=== PATIENT | female | born 1975 ===

== ENCOUNTER 2020-09-12 08:40 | Outpatient (REF) | payer OTHER, SELFPAY | END 2020-09-12 08:41 | disposition home or self-care (01) | LOC: HO.LAB 08:40 | PROVIDERS: Visit Provider Internal Medicine | DX: Z20.828 Contact with and (suspected) exposure to other viral communicable diseases (principal) | CPT/HCPCS: C9803; U0003 ==

== ENCOUNTER 2024-05-30 08:29 | Emergency (ER) | payer OTHER, SELFPAY ==
--- NOTE | ~2024-05-30 | XR_ITS ---
EXAMINATION: XR HUMERUS, RIGHT CLINICAL INFORMATION: Possible foreign body COMPARISON: None available. TECHNIQUE: AP and lateral views of the right humerus. FINDINGS: A linear 1 cm long metallic foreign body is present in the lateral soft tissues of the distal upper arm. Appearances are that of a needle. The bones and soft tissues are otherwise unremarkable. No fracture. Imaged portions of the shoulder and elbow are unremarkable. XR/XR humerus RT IMPRESSION: 1 cm long metallic foreign body in the lateral soft tissues of the distal upper arm. Electronically signed by: Bola Mcmanus MD 05/30/2024 09:37 AM EDT
[2024-05-30 08:34] VITALS: BP 142/87; PULSE 69; RESP 20; TEMP 36.1; O2SAT 100; BMI 26.3
--- OUTSIDE RECORDS SUMMARY | 2024-05-30 08:55 | XMS_ITS | Continuity of Care Document ---
Author Organization [facility] Address [address] [place] [address]- Care Team Providers Care Broom Bundler Name Role Phone Dylan Lu MD Primary Care Physician Encounter [facility] [place](s): 06/04/20 - 07/04/20 [facility] [address] [place] [address]- [facility] Allergies, Adverse Reactions, Alerts Substance Reaction Severity Status NKA Active Immunizations Given and Recorded Vaccine Date Status Refusal Reason influenza virus vaccine, inactivated 06/28/20 Give n influenza virus vaccine, inactivated 1 07/15/16 Gi cally influenza virus vaccine, inactivated 12/25/15 Give n influenza virus vaccine, inactivated 06/20/13 Give n influenza virus vaccine, inactivated 2 09/19/11 Gi cally influenza virus vaccine, inactivated 3 06/19/10 Gi cally tetanus/diphtheria/pertussis, acel(Tdap) 12/25/15 Given Tetanus-Diphth Toxoids, Adult (oldterm) 4 08/31/09 Given 1Admin Note: outside office 2Admin Note: vis given 04/23/10 3Admin Note: VIS GIVEN 4Admin Note: vis given Medications melatonin 5 mg oral tablet 1 tablet = 5 mg, By Mouth, Daily at bedtime, PRN for insomnia, # 60 tablet, 1 Refills, Acute 07/13/20 8:14:00 EDT, 06/13/20 8:14:00 EDT, Tablet, [id number], 175, cm, 11/10/19 10:47:00 EST, Height, 80.7, kg, 08/24/18 9:07:00 EST, Dry Weight Start Date: 06/13/20 Stop Date: 07/13/20 Status: Ordered Problem List Condition Effective Dates Status Health Status Inform ant H/O subconjunctival hemorrhage(Confirmed) Active H/O keloid of skin afer surgery(Confirmed) Active History of tubal ligation(Confirmed) 1999 Active History of appendectomy(Confirmed) 06/2016 Active H/O bilateral breast reducti on surgery(Confirmed) Active Lobular carcinoma in situ (L CIS) , left breast, 2004(Confirmed) 2004 Active Migraine(Confirmed) 1987 Active Overweight(Confirmed) Active Social History Social History Type Response Smoking Status Never smoker entered on: 01/11/14 Sex
--- OUTSIDE RECORDS SUMMARY | 2024-05-30 08:55 | XMS_ITS | Continuity of Care Document ---
Author Organization [facility] Address [address] [place] [address]- Care Team Providers Care Oil Scout Name Role Phone Dylan Lu MD Primary Care Physician Encounter [facility] Date(s): 12/22/20 - 01/21/21 [facility]/[address] [address]- Attending Physician: Anali Brewer Admitting Physician: AdmtrAnali Referring Physician: Admtr, Anali Allergies, Adverse Reactions, Alerts Substance Reaction Severity Status NKA Active Immunizations Given and Recorded Vaccine Date Status Refusal Reason SARS-CoV-2 (COVID-19) Ad26 vaccine 12/22/20 Given influenza virus vaccine, inactivated 06/28/20 Give n [...] Note: VIS GIVEN 4Admin Note: vis given Problem List Condition Effective Dates Status Health [...]
--- OUTSIDE RECORDS SUMMARY | 2024-05-30 08:55 | XMS_ITS | Continuity of Care Document ---
Author Organization [facility] Address [address] [place] [address]- Care Team Providers Care Tire Service Supervisor Name Role Phone Flako Benavides MD Primary Care Physician Encounter [facility] [place] Date(s): 06/09/23 - 07/09/23 [facility] [address] [place] [address] Allergies, Adverse Reactions, Alerts Substance Reaction Severity Status Percocet GI upset, made me feel sick Active Immunizations Given and Recorded Vaccine Date Status Refusal Reason SARS-CoV-2 mRNA (pdogmpw-xrro-jobdu) vax 10/21/21 Given influenza virus vaccine, inactivated 08/23/21 Give n influenza virus vaccine, inactivated 06/28/20 Give n influenza virus vaccine, inactivated 1 07/15/16 Gi cally influenza virus vaccine, inactivated 05/15/16 Deacon rded influenza virus vaccine, inactivated 12/25/15 Give n influenza virus vaccine, inactivated 06/20/13 Give n influenza virus vaccine, inactivated 2 09/19/11 Gi cally influenza virus vaccine, inactivated 3 06/19/10 Gi cally SARS-CoV-2 (COVID-19) Ad26 vaccine 12/22/20 Given tetanus/diphtheria/pertussis, acel(Tdap) 05/15/16 Recorded tetanus/diphtheria/pertussis, acel(Tdap) 12/25/15 Given Tetanus-Diphth Toxoids, Adult (oldterm) 4 08/31/09 Given 1Admin Note: outside office 2Admin Note: vis given 04/23/10 3Admin Note: VIS GIVEN 4Admin Note: vis given Medications diclofenac 1% topical gel See Instructions, APPLY TOPICALLY 4 TIMES DAILY NEEDED FOR PAIN NOT TO EXCEED 32 GRAMS DAILY., #100 Gm, 12 Refills, Maintenance, 04/22/23 11:02:00 EDT, [id number], 25, APPLY TOPICALLY 4 TIMES DAILY NEEDED FOR PAIN NOT TO EXCEED 32 GRAMS DA... Start Date: 04/22/23 Status: Ordered meloxicam 15 mg oral tablet 1 tablet, By Mouth, Daily, INSTR:TAKE WITH FOOD., # 30 tablet, 0 Refills, Maintenance, 02/16/23 11:52:00 EDT, [id number], 175.3, cm, 01/07/23 11:19:00 EDT, Height, 82.6, kg, 11/14/21 10:17:00 EST, Dry Weight Start Date: 02/16/23 Status: Ordered please d/c fluoxetine, trazodone, hydroxyzine please d/c fluoxetine, trazodone, hydroxyzine, See Instructions, # 1 each, Refills 0, Tot. Refills 0, Maintenance, please d/c fluoxetine, trazodone, hydroxyzine, 03/09/23 9:33:00 EDT, please d/c fluoxetine, trazodone, hydroxyzine, Supply, 175.3, cm, 0... Start Date: 03/09/23 Status: Ordered psyllium 2.4 g/3.7 g oral powder for reconstitution = 2.4 Gm, By Mouth, 2 times a day, PRN as needed for constipation, dissolve in 8 oz of fluid, # 30 pack/packet, 1 Refills, Maintenance, 06/12/22 20:32:00 EDT, REC Powder, [facility]/pharmacy #1130, Partial fill upon patient request if the prescription is for... Start Date: 06/12/22 Status: Ordered tamoxifen 20 mg oral tablet 1 tablet = 20 mg, By Mouth, Daily, # 30 tablet, 5 Refills, Maintenance, 04/22/23 18:16:00 EDT, Tablet, [facility]/pharmacy #1130, Partial fill upon patient request if the prescription is for a schedule II opioid drug., 175.3, cm, 03/09/23 9:10:00 EDT, Height... Start Date: 04/22/23 Stop Date: 10/19/23 Status: Ordered Tylenol 8 Hour 650 mg oral tablet, extended release 2 tablet = 1,300 mg, By Mouth, Every 8 hours, 0 Refills, Maintenance, 11/01/21 11:10:00 EST, Partial fill upon patient request if the prescription is for a schedule II opioid drug. Start Date: 11/01/21 Status: Ordered Problem List Condition Confirmation Course Effective Dates Status H ealth Status Informant History of subconjunctival hemorrhage Confirmed Active History of keloid of skin afer surgery Confirmed Active Primary language spoken is Vincentian Confirmed Active Lobular carcinoma in situ (LCIS) , left breast, 2004 Confirmed 2004 Active Migraine Confirmed 1987 Active Overweight Confirmed Active History of ASCUS, HPV + Pap smear 12/23/16. Last Pap 11/25/17 negative with negative HPV Confirmed Active Social History Social History Type Response Smoking Status Never smoker entered on: 01/11/14 Sex Patient Care team information Care Team Personnel Name: Flako Benavides MD Position: [facility] Resident Member Role: PCP Address: Address: [address] [place] [address]- Name: Homer Simon RN Position: [facility] RN Member Role: Primary Care Nurse Care Team Related Persons Name: PHOEBE SORTO Address: home [address] [place] [address] Name: YAMILKA WELLER Address: [place] [address] Name: KITA ZAMBRANO Address: home [address] [place] [address]
--- OUTSIDE RECORDS SUMMARY | 2024-05-30 08:55 | XMS_ITS | Continuity of Care Document ---
Author Organization [facility] Address [address] [place] [address]- Care Team Providers Care Stage Driver Name Role Phone Dylan Lu MD Primary Care Physician [place] [facility] [place](s[place] 09/28/20 - 10/28/20 [facility] [address] [place] [address]- Attending Physician: Anali Brewer Admitting Physician: Anali Brewer Referring Physician: AdmtrAnali Allergies, Adverse Reactions, Alerts Substance Reaction Severity [...] VIS GIVEN 4Admin Note: vis given Medications traZODone 50 mg oral tablet 25 mg, 0.5, tablet, By Mouth, Daily at bedtime, # 15 tablet, Refills 2, Tot. Refills 2, Maintenance, 09/28/20 15:09:00 EST, Route to Pharmacy Electronically, [facility]/pharmacy #[id number], Partial fill upon patient request if the prescription is for a schedule I... Start Date: 09/28/20 Stop Date: 12/27/20 Status: Ordered Problem List Condition Effective Dates [...]
--- OUTSIDE RECORDS SUMMARY | 2024-05-30 08:55 | XMS_ITS | Continuity of Care Document ---
Author Organization [facility] Dary sushila Address [address] [place] [address] [address] [place] [address]- Care Team Providers Care Branch Office Administrator Name Role Phone Aly PALACIOS, Dylan Vasquez Primary Care Physician Encounter [facility] Date(s): 10/04/21 - 02/01/22 [facility] [address] [place] [address]- Attending Physician: William Kelly MD Allergies, Adverse Reactions, Alerts Substance Reaction Severity Status Percocet GI upset, made me feel sick Active Immunizations Given and Recorded Vaccine Date Status Refusal Reason SARS-CoV-2 mRNA (otdxfzw-zawc-shyeq) vax 10/21/21 Given influenza virus vaccine, inactivated [...] VIS GIVEN 4Admin Note: vis given Medications acetaminophen 325 mg oral tablet 650 mg, 2, tablet, By Mouth, Every 8 hours, PRN, # 100 tablet, Refills 1, Tot. Refills 1, Maintenance, Pain , Moderate, 01/21/22 8:34:00 EDT, Route to Pharmacy Electronically, [facility]/pharmacy #[id number], Partial fill upon patient request if the prescription i... Start Date: 01/21/22 Status: Ordered diclofenac 1% topical gel See Instructions, APPLY TOPICALLY 4 TIMES A DAY CUANDO SEA NECESARIO FOR PAIN NOT TO EXCEED 32 GRAMS/DAY, # 100 Gm, 1 Refills, [facility], 30, APPLY TOPICALLY 4 TIMES A DAY CUANDO SEA NECESARIO FOR PAIN NOT TO EXCEED 32 GRAMS/DAY, 175, cm, ... Start Date: 01/22/22 Status: Ordered Diflucan 150 mg oral tablet 1 tablet = 150 mg, By Mouth, Once, # 1 tablet, 0 Refills, Soft Stop, 12/06/21 12:35:00 EDT, [facility], Partial fill upon patient request if the prescription is for a schedule II opioid drug., 175, cm, 11/26/21 9:31:00 EDT, Height, 82.6, kg, 0... Start Date: 12/06/21 Status: Ordered FLUoxetine 20 mg oral capsule 20 mg, 1, capsule, By Mouth, Daily, [place] INSTRUCTIONS Please take every morning every day and donot stop unless told by your doctor, # 30 capsule, Refills 5, Tot. Refills 5, Maintenance, 228:32:00 EDT, Route to Pharmacy Electronically, C... Start Date: 01/21/22 Status: Ordered gabapentin 100 mg oral capsule 100 mg, 1, capsule, By Mouth, 3 times a day, # 90 capsule, Refills 1, Tot. Refills 1, Maintenance, 11/01/21 11:52:00 EST, Route to Pharmacy Electronically, [facility]/pharmacy #1130, Partial fill upon patient request if the prescription is for a schedule II... Start Date: 11/01/21 Stop Date: 12/31/21 Status: Ordered NuLYTELY with Flavor Packs oral powder for reconstitution 240 mL, By Mouth, Every 10 minutes, split prep method, take 1st half of prep evening before procedure, 2nd half 6 hrs prior to procedure., # 1 each, 0 Refills, Maintenance, 06/11/22 17:00:00 EDBala Abarca [facility]/pharmacy #1130, test date 06/12/22 . CA... Start Date: 06/11/22 Status: Ordered Tylenol 8 Hour 650 mg oral tablet, extended release 2 tablet = 1,300 mg, By Mouth, Every 8 hours, 0 Refills, Maintenance, 11/01/21 11:10:00 EST, Partial fill upon patient request if the prescription is for a schedule II opioid drug. Start Date: 11/01/21 Status: Ordered Problem List Condition Effective Dates Status Health Status Inform ant History of subconjunctival hemorrhage(Confirmed) Active History of keloid of skin af er surgery(Confirmed) Active Primary language spoken is Japanese(Confirmed) Active Lobular carcinoma in situ (L CIS) , left breast, 2004(Confirmed) 2004 Active Migraine(Confirmed) 1987 Active Overweight(Confirmed) Active History of ASCUS, HPV + Pap smear 12/23/16. Last Pap 11/25/17 negative with negative HPV(Confirmed) Active Social History Social History Type Response Smoking Status Never smoker entered on: 01/11/14 Sex
--- OUTSIDE RECORDS SUMMARY | 2024-05-30 08:55 | XMS_ITS | Continuity of Care Document ---
Author Organization [facility] Address [address] [place] [address]- Care Team Providers Care Web Ui Software Engineer Name Role Phone Dylan Lu MD Primary Care Physician ( [phone] [place] [facility] [place] 11/05/20 - 12/05/20 [facility] [address] [place] [address]- Allergies, Adverse Reactions, Alerts Substance Reaction Severity [...] GIVEN 4Admin Note: vis given Medications melatonin 10 mg oral tablet 1 tablet = 10 mg, By Mouth, Daily at bedtime, PRN as needed for insomnia, # 200 tablet, 1 Refills, Acute 01/09/21 9:00:00 EDT, 11/11/20 15:33:00 EST, Tablet, [id number], Partial fill upon patient request if the prescription is for a schedule I... Start Date: 11/11/20 Stop Date: 01/09/21 Status: Ordered Problem List Condition Effective Dates [...]
--- OUTSIDE RECORDS SUMMARY | 2024-05-30 08:55 | XMS_ITS | Continuity of Care Document ---
Author Organization [facility] Address [address] [place] [address]- Care Team Providers Care Freight Car Loader Name Role Phone Aly PALACIOS, Dylan S Primary Care Physician Encounter [facility] Date(s): 11/26/21 - 12/26/21 [facility] [address] [place] [address]- Attending Physician: Anali Brewer Admitting Physician: AdmAnali tolentino Referring Physician: AdmtrAnali Allergies, Adverse Reactions, Alerts Substance Reaction Severity Status Percocet GI upset, made me feel sick Active Immunizations Given and Recorded Vaccine Date Status Refusal Reason SARS-CoV-2 mRNA (kesvrjx-zwhz-lfift) vax 10/21/21 Given influenza virus vaccine, inactivated [...] 32 GRAMS/DAY, # 100 Gm, 1 Refills, [id number], 30, APPLY TOPICALLY 4 TIMES A DAY CUANDO SEA NECESARIO FOR PAIN NOT TO EXCEED 32 GRAMS/DAY, 175, cm, ... Start Date: 11/25/21 Status: Ordered Diflucan 150 mg oral tablet 1 tablet = 150 mg, By Mouth, Once, # 1 tablet, 0 Refills, Soft Stop, 12/06/21 12:35:00 EDT, [facility]/pharmacy #1130, Partial fill upon patient request if the prescription is for a schedule II opioid drug., 175, cm, 11/26/21 9:31:00 EDT, Height, 82.6, kg, 0... Start Date: 12/06/21 Status: Ordered FLUoxetine 20 mg oral capsule 20 mg, 1, capsule, By Mouth, Daily, SCOTTISH INSTRUCTIONS Please take every morning every day and donot stop unless told by your doctor, # 30 capsule, Refills 3, Tot. Refills 3, Maintenance, 11/12/2216:07:00 EST, Route to Pharmacy Electronically,... Start Date: 11/12/21 Status: Ordered gabapentin 100 mg oral capsule 100 mg, 1, capsule, By Mouth, 3 times a day, # 90 capsule, Refills 1, Tot. Refills 1, Maintenance, 11/01/21 11:52:00 EST, Route to Pharmacy Electronically, [facility]/pharmacy #1130, Partial fill upon patient request if the prescription is for a schedule II... Start Date: 11/01/21 Stop Date: 12/31/21 Status: Ordered NuLYTELY with Flavor Packs oral powder for reconstitution 240 mL, By Mouth, Every 10 minutes, split prep method, take 1st half of prep evening before procedure, 2nd half 6 hrs prior to procedure., # 1 each, 0 Refills, Maintenance, 06/11/22 17:00:00 EDT, Bala, [facility]/pharmacy #1130, test date 06/12/22 . CA... Start [...] er surgery(Confirmed) Active Primary language spoken is Latvian(Confirmed) Active Lobular carcinoma in situ (L CIS) , left breast, 2004(Confirmed) 2004 Active Migraine(Confirmed) 1987 Active Overweight(Confirmed) Active History of ASCUS, HPV + Pap smear 12/23/16. Last Pap 11/25/17 negative with negative HPV(Confirmed) Active Social History Social History Type Response Smoking Status Never smoker entered on: 01/11/14 Sex
--- OUTSIDE RECORDS SUMMARY | 2024-05-30 08:56 | XMS_ITS | Continuity of Care Document ---
Author Organization [facility] Address [address] [place] [address]- Care Team Providers Care Refund Clerk Name Role Phone Aly PALACIOS, Dylan S Primary Care Physician Encounter [facility] Date(s): 04/30/22 - 05/30/22 [facility] [address] [place], [place] [address] Attending Physician: Anali Brewer Admitting Physician: AdmAnlai tolentino Referring Physician: AdmtrAnali Allergies, Adverse Reactions, Alerts Substance Reaction Severity Status Percocet GI upset, made me feel sick Active Immunizations Given and Recorded Vaccine Date Status Refusal Reason SARS-CoV-2 mRNA (pgpchcc-dion-pnwsm) vax 10/21/21 Given influenza virus vaccine, inactivated [...] 01/21/22 8:34:00 EDT, Route to Pharmacy Electronically, [facility]/pharmacy #1130, Partial fill upon patient request if the prescription i... Start Date: 01/21/22 Status: Ordered diclofenac 1% topical gel See Instructions, APPLY TOPICALLY 4 TIMES DAILY NEEDED FOR PAIN NOT TO EXCEED 32 GRAMS DAILY., #100 Gm, 12 Refills, [facility], 25, APPLY TOPICALLY 4 TIMES DAILY NEEDED FOR PAIN NOT TO EXCEED 32 GRAMS DAILY., 175, cm, 01/21/22 7:55:00 EDT,... Start Date: 04/16/22 Status: Ordered Diflucan 150 mg oral tablet 1 tablet = 150 mg, By Mouth, Once, # 1 tablet, 0 Refills, Soft Stop, 12/06/21 12:35:00 EDT, [facility]/pharmacy #1130, Partial fill upon patient request if the prescription is for a schedule II opioid drug., 175, cm, 11/26/21 9:31:00 EDT, Height, 82.6, kg, 0... Start Date: 12/06/21 Status: Ordered FLUoxetine 20 mg oral capsule 20 mg, 1, capsule, By Mouth, Daily, ENGLISH INSTRUCTIONS Please take every morning every day and donot stop unless told by your doctor, # 30 capsule, Refills 5, Tot. Refills 5, Maintenance, :32:00 EDT, Route to Pharmacy Electronically, C... Start Date: 01/21/22 Status: Ordered gabapentin 100 mg oral capsule 100 mg, 1, capsule, By Mouth, 3 times a day, # 90 capsule, Refills 1, Tot. Refills 1, Maintenance, 11/01/21 11:52:00 EST, Route to Pharmacy Electronically, [facility]/pharmacy #1130, Partial fill upon patient request if the prescription is for a schedule II... Start Date: 11/01/21 Stop Date: 12/31/21 Status: Ordered nabumetone 500 mg oral tablet 1 tablet = 500 mg, By Mouth, 2 times a day, # 20 tablet, 0 Refills, Maintenance, 04/30/22 10:45:00 EDT, Tablet, [facility]/pharmacy #1130, Partial fill upon patient request if the prescription is for a schedule II opioid drug., 175, cm, 04/30/22 9:29:00 EDT,... Start Date: 04/30/22 Stop Date: 05/10/22 Status: Ordered NuLYTELY with Flavor Packs oral powder for reconstitution 240 mL, By Mouth, Every 10 minutes, split prep method, take 1st half of prep evening before procedure, 2nd half 6 hrs prior to procedure., # 1 each, 0 Refills, Maintenance, 06/11/22 17:00:00 EDT, RECPowder, [facility]/pharmacy #1130, test date 06/12/22 . CA... Start Date: 06/11/22 Status: Ordered tiZANidine 2 mg oral capsule 1 capsule = 2 mg, By Mouth, 3 times a day, PRN as needed for muscle spasm, # 40 capsule, 1 Refills,Maintenance, 04/30/22 10:45:00 EDT, Capsule, [facility]/pharmacy #1130, Partial fill upon patient request if the prescription is for a schedule II opioid drug... Start Date: 04/30/22 Stop Date: 05/28/22 Status: Ordered Tylenol 8 Hour 650 mg [...] er surgery(Confirmed) Active Primary language spoken is Lithuanian(Confirmed) Active Lobular carcinoma in situ (L CIS) , left breast, 2004(Confirmed) 2004 Active Migraine(Confirmed) 1987 Active Overweight(Confirmed) Active History of ASCUS, HPV + Pap smear 12/23/16. Last Pap 11/25/17 negative with negative HPV(Confirmed) Active Social History Social History Type Response Smoking Status Never smoker entered on: 01/11/14 Sex Care Team Personnel Name: Dylan Lu MD Address: [address] [place] [address]
--- OUTSIDE RECORDS SUMMARY | 2024-05-30 08:56 | XMS_ITS | Continuity of Care Document ---
Author Organization [facility] Address [address] [place] [address]- Care Team Providers Care Bread Wrapping Machine Feeder Name Role Phone Flako Benavides MD Primary Care Physician Encounter [facility] Date(s): 03/23/24 - 04/22/24 [facility] [address] [place], [place] [phone] Allergies, Adverse Reactions, Alerts Substance Reaction Severity Status Percocet GI upset, made me feel sick Active Immunizations Given and Recorded Vaccine Date Status Refusal Reason SARS-CoV-2 mRNA (gsjbsua-hdtl-ocxmy) vax 10/21/21 Given influenza virus vaccine, inactivated [...] GIVEN 4Admin Note: vis given Medications acetaminophen 500 mg oral tablet 2 tablet = 1,000 mg, By Mouth, Every 8 hours, for pain, # 100 tablet, 5 Refills, Maintenance, 12/17/23 8:47:00 EDT, [facility]/pharmacy #1130, Partial fill upon patient request if the prescription is for a schedule II opioid drug., 175.3, cm, 12/17/23 8:18:0... Start Date: 12/17/23 Status: Ordered diclofenac 1% topical gel See Instructions, APPLY TOPICALLY 4 TIMES DAILY NEEDED FOR PAIN NOT TO EXCEED 32 GRAMS DAILY., #100 Gm, 1 Refills, Maintenance, 03/23/24 11:28:00 EDT, [facility]/pharmacy #1130, 25, APPLY TOPICALLY 4 TIMES DAILY NEEDED FOR PAIN NOT TO EXCEED 32 GRAMS... Start Date: 03/23/24 Status: Ordered eszopiclone 1 mg oral tablet 1 tablet = 1 mg, By Mouth, Daily, TAKE IMMEDIATELY BEFORE BED. Sudanese label please, # 30 tablet, 0Refills, Maintenance, 11/05/23 15:48:00 EST, [facility]/pharmacy #1130, D/C DOXEPIN PLEASE, 175.3, cm, 10/01/23 17:00:00 EST, Height, 82.6, kg, 11/14/21 10:17... Start Date: 11/05/23 Status: Ordered FLUoxetine 40 mg oral capsule 1 capsule = 40 mg, By Mouth, Daily, Sudanese label please, # 30 capsule, 5 Refills, Maintenance, 11/03/23 10:11:00 EST, [facility]/pharmacy #1130, dose increase to 40mg 11/03/23, 175.3, cm, 10/01/23 17:00:00 EST, Height, 82.6, kg, 11/14/21 10:17:00 EST, Dry We... Start Date: 11/03/23 Status: Ordered meloxicam 15 mg oral tablet 1 tablet, By Mouth, Daily, INSTR:TAKE WITH FOOD. Sudanese label please., # 30 tablet, 1 Refills, Maintenance, 08/26/23 9:15:00 EST, [facility]/pharmacy #1130, 175.3, cm, 08/18/23 9:52:00 EST, Height, 82.6, kg, 11/14/21 10:17:00 EST, Dry Weight Start Date: 08/26/23 Status: Ordered please d/c fluoxetine, trazodone, hydroxyzine [...] Refills, Maintenance, 06/12/22 20:32:00 EDT, REC Powder, [facility]/pharmacy #1130, Partial fill upon patient request if the prescription is for... Start Date: 06/12/22 Status: Ordered tamoxifen 20 mg oral tablet See Instructions, KHADIJAH SANTIZO EMMANUEL, # 90 tablet, 3 Refills, Maintenance, 11/26/23 13:41:00 EDT, [facility], 175.3, cm, 11/26/23 13:25:00 EDT, Height Start Date: 11/26/23 Status: Ordered Tylenol 8 Hour 650 mg [...] surgery Confirmed Active Primary language spoken is Sudanese Confirmed Active Lobular carcinoma in situ (LCIS) [...] Team Personnel Name: Flako Benavides MD Position: S Resident Member Role: PCP Address: Address: [address] [place] [id number]- Name: Alfred RN, Homer Position: S SN RN Member Role: Primary Care Nurse Care Team Related Persons Name: PHOEBE SORTO Address: home [address] [place] [address] Name: YAMILKA WELLER Address: [place] [address] Name: KITA ZAMBRANO Address: home [address] [place] [address]
--- OUTSIDE RECORDS SUMMARY | 2024-05-30 08:56 | XMS_ITS | Continuity of Care Document ---
Author Organization [facility] Address [address] [place] [address]- Care Team Providers Care Therapist Occupational Name Role Phone Dylan Lu MD S Primary Care Physician [facility]counter [facility] Date(s): 08/23/21 - 09/25/21 [facility] [address] [place], [place] [address] Attending Physician: Yovani Gonzalez MD Admitting Physician: Yovani Gonzalez MD Allergies, Adverse Reactions, Alerts Substance Reaction Severity Status Percocet GI upset, made me feel sick Active Immunizations Given and Recorded Vaccine Date Status Refusal Reason influenza virus vaccine, inactivated 08/23/21 Give n [...] vis given Medications diclofenac 1% topical gel 1 application, Topically, 4 times a day, prn pain not to exceed 32 grams/day, # 100 Gm, 0 Refills, Maintenance, 08/23/21 13:51:00 EST, Gel, [id number], Partial fill upon patient request if the prescription is for a schedule II opioid drug., 1... Start Date: 08/23/21 Status: Ordered Problem List Condition Effective Dates Status Health Status Inform ant History of subconjunctival hemorrhage(Confirmed) Active History of keloid of skin af er surgery(Confirmed) Active Primary language spoken is Malagasy(Confirmed) Active Lobular carcinoma in situ (L CIS) , left breast, 2004(Confirmed) 2004 Active Migraine(Confirmed) 1987 Active Overweight(Confirmed) Active History of ASCUS, HPV + Pap smear 12/23/16. Last Pap 11/25/17 negative with negative HPV(Confirmed) Active Social History Social History Type Response Smoking Status Never smoker entered on: 01/11/14 Sex
--- OUTSIDE RECORDS SUMMARY | 2024-05-30 08:56 | XMS_ITS | Continuity of Care Document ---
Author Organization [facility] Address [address] [place] [address]- Care Team Providers Care Owner Oral Surgeon Name Role Phone Dylan Lu MD S Primary Care Physician En[place] [facility] [place] Date(s): 08/29/22 - 09/28/22 [facility] [address] [place] [address]- Attending Physician: Not on Staff, Attending MD Allergies, Adverse Reactions, Alerts Substance Reaction Severity Status Percocet GI upset, made me feel sick Active Immunizations Given and Recorded Vaccine Date Status Refusal Reason SARS-CoV-2 mRNA ([id number]) vax 10/21/21 Given influenza virus vaccine, inactivated [...] 01/21/22 8:34:00 EDT, Route to Pharmacy Electronically, [facility]/pharmacy #[id number], Partial fill upon patient request if the prescription i... Start Date: 01/21/22 Status: Ordered diclofenac 1% topical gel See Instructions, APPLY TOPICALLY 4 TIMES DAILY NEEDED FOR PAIN NOT TO EXCEED 32 GRAMS DAILY., #100 Gm, 12 Refills, [id number], 25, APPLY TOPICALLY 4 TIMES DAILY NEEDED FOR PAIN NOT TO EXCEED 32 GRAMS DAILY., 175, cm, 01/21/22 7:55:00 EDT,... Start Date: 04/16/22 Status: Ordered Diflucan 150 mg oral tablet 1 tablet = 150 mg, By Mouth, Once, # 1 tablet, 0 Refills, Soft Stop, 12/06/21 12:35:00 EDT, [facility]/pharmacy #[id number], Partial fill upon patient request if the prescription is for a schedule II opioid drug., 175, cm, 11/26/21 9:31:00 EDT, Height, 82.6, kg, 0... Start Date: 12/06/21 Status: Ordered FLUoxetine 20 mg oral capsule See Instructions, TAKE 1 CAPSULE BY MOUTH DAILY MORNING DO NOT STOP UNLESS TOLD BY YOUR DOCTOR, # 30 capsule, Refills 5, Maintenance, 07/23/22 16:40:00 EST, Instructions Replace Required Details, Route to Pharmacy Electronically, [id number], 175.... Start Date: 07/23/22 Status: Ordered FLUoxetine 20 mg oral tablet 1.5 tablet = 30 mg, By Mouth, Daily, Lao label please., # 45 tablet, 5 Refills, Maintenance, 09/24/22 8:25:00 EST, [id number], Dose increase to 30mg qd 09/24/22, 175.3, cm, 08/06/22 10:40:00 EST, Height, 82.6, kg, 11/14/21 10:17:00 EST, Dry... Start Date: 09/24/22 Status: Ordered gabapentin 100 mg oral capsule 100 mg, 1, capsule, By Mouth, 3 times a day, # 90 capsule, Refills 1, Tot. Refills 1, Maintenance, 11/01/21 11:52:00 EST, Route to Pharmacy Electronically, [facility]/pharmacy #[id number], Partial fill upon patient request if the prescription is for a schedule II... Start Date: 11/01/21 Stop Date: 12/31/21 Status: Ordered hydrOXYzine hydrochloride 25 mg oral tablet 1 tablet = 25 mg, By Mouth, Daily at bedtime, Lao label please., # 30 tablet, 3 Refills, Maintenance, 09/24/22 8:26:00 EST, [id number], Partial fill upon patient request if the prescription is for a schedule II opioid drug., 175.3, cm, ... Start Date: 09/24/22 Status: Ordered psyllium 2.4 g/3.7 g oral powder for reconstitution = 2.4 Gm, By Mouth, 2 times a day, PRN as needed for constipation, dissolve in 8 oz of fluid, # 30 pack/packet, 1 Refills, Maintenance, 06/12/22 20:32:00 EDT, REC Powder, [facility]/pharmacy #[id number], Partial fill upon patient request if the prescription is for... Start Date: 06/12/22 Status: Ordered tiZANidine 2 mg oral capsule 1 capsule = 2 mg, By Mouth, 3 times a day, PRN as needed for muscle spasm, # 40 capsule, 1 Refills,Maintenance, 04/30/22 10:45:00 EDT, Capsule, [facility], Partial fill upon patient request if the prescription is for a schedule II opioid drug... Start Date: 04/30/22 Stop Date: 05/28/22 Status: Ordered tiZANidine 2 mg oral tablet 2 mg, 1, tablet, By Mouth, 3 times a day, # 15 tablet, Refills 0, Tot. Refills 0, Maintenance, 07/25/22 14:47:00 EST, Route to Pharmacy Electronically, [id number], Partial fill upon patient request if the prescription is for a schedule II opio... Start Date: 07/25/22 Stop Date: 07/30/22 Status: Ordered Tylenol 8 Hour 650 mg [...] surgery Confirmed Active Primary language spoken is Lao Confirmed Active Lobular carcinoma in situ (LCIS) , left breast, 2004 Confirmed 2004 Active Migraine Confirmed 1987 Active Overweight Confirmed Active History of ASCUS, HPV + Pap smear 12/23/16. Last Pap 11/25/17 negative with negative HPV Confirmed Active Social History Social History Type Response Smoking Status Never smoker entered on: 01/11/14 Sex Patient Care team information Care Team Personnel Name: Dylan Lu MD Position: [facility] Resident Member Role: PCP Address: Address: [address] [place] [address]- Name: Homer Simon RN Position: [facility] RN Member Role: Primary Care Nurse Care Team Related Persons Name: PHOEBE SORTO Address: home [address] [place] [address] Name: YAMILKA WELLER Address: [place] [address] Name: KITA ZAMBRANO Address: home [address] [place] [address]
--- OUTSIDE RECORDS SUMMARY | 2024-05-30 08:56 | XMS_ITS | Continuity of Care Document ---
Author Organization [facility] Dary sushila Address [address] [place] [address] [address] [place] [address]- Care Team Providers Care Medical Planner Name Role Phone Aly PALACIOS, Dylan S Primary Care Physician Encounter [facility] [place] Date(s): 10/03/21 - 10/10/21 [facility] [address] [place], [place] [address] Attending Physician: Robin PALACIOS, William Baez Allergies, Adverse Reactions, Alerts Substance Reaction Severity [...] to exceed 32 grams/day, # 100 Gm, 1 Refills, Maintenance, 10/03/21 9:32:00 EST, Gel, [id number], Partial fill upon patient request if theprescription is for a schedule II opioid drug., 17... Start Date: 10/03/21 Status: Ordered ibuprofen 600 mg oral tablet 600 mg, 1, tablet, By Mouth, Every 8 hours, for 10 days, # 30 tablet, Refills 1, Tot. Refills 1, Acute 10/23/21 9:32:00 EST, 10/03/21 9:32:00 EST, Route to Pharmacy Electronically, [facility]/pharmacy #[id number], Partial fill upon patient request if the prescript... Start Date: 10/03/21 Stop Date: 10/23/21 Status: Ordered Problem List Condition Effective Dates Status Health Status Inform ant History of subconjunctival hemorrhage(Confirmed) Active History of keloid of skin af er surgery(Confirmed) Active Primary language spoken is Iraqi(Confirmed) Active Lobular carcinoma in situ (L CIS) , left breast, 2004(Confirmed) 2004 Active Migraine(Confirmed) 1987 Active Overweight(Confirmed) Active History of ASCUS, HPV + Pap smear 12/23/16. Last Pap 11/25/17 negative with negative HPV(Confirmed) Active Vital Signs Most recent to oldest [Reference Range]: 1 Height 175 cm (10/03/21 9:00 AM) Temperature [96.8-100.4 DegF] 98.0 DegF (10/03/21 9:00 AM) Temperature Route Temporal (10/03/21 9:00 AM) Social History Social History Type Response Smoking Status Never smoker entered on: 01/11/14 Sex
--- OUTSIDE RECORDS SUMMARY | 2024-05-30 08:56 | XMS_ITS | Continuity of Care Document ---
Author Organization [facility] sush[facility] Address [address] [place] [address] [address] [place] [address]- Care Team Providers Care Grain Inspector Name Role Phone Elvis PALACIOS, Elena Primary Care Physician [phone] Encounter [facility] Date(s): 12/23/19 - 01/02/20 [facility] [address] [place] [address]- [facility] Attending Physician: [id number] Admitting Physician: Admtr, Ar8 Referring Physician: Admtr, Ar8 Allergies, Adverse Reactions, Alerts Substance Reaction Severity Status NKA Active Immunizations Given and Recorded Vaccine Date Status Refusal Reason influenza virus vaccine, inactivated 1 07/15/16 Gi [...] VIS GIVEN 4Admin Note: vis given Medications diclofenac-misoprostol 50 mg-200 mcg oral tablet 1 tablet, By Mouth, 2 times a day, # 28 tablet, 0 Refills, Maintenance, 07/26/19 10:29:07 EST, Tablet, 1 tablet By Mouth 2 times a day,x14 days Start Date: 07/26/19 Stop Date: 08/09/19 Status: Ordered Diflucan 150 mg oral tablet 1 tablet = 150 mg, By Mouth, Once, # 1 tablet, 0 Refills, Soft Stop, 03/23/19 15:34:59 EDT, Tablet Start Date: 03/23/19 Status: Ordered ibuprofen 800 mg oral tablet 800 mg, 1, tablet, By Mouth, 3 times a day, # 90 tablet, Refills 1, Tot. Refills 1, Maintenance, 10/21/18 19:02:27 EST, Route to Pharmacy Electronically, [id number], [facility]/pharmacy #[id number] Start Date: 10/21/18 Status: Ordered Zantac 75 oral tablet 1 tablet = 75 mg, By Mouth, Daily, not to exceed 2 tablets/day, # 14 tablet, 0 Refills, Maintenance, 02/24/19 15:17:56 EDT, Tablet Start Date: 02/24/19 Stop Date: 03/10/19 Status: Ordered Problem List Condition Effective Dates [...]
--- OUTSIDE RECORDS SUMMARY | 2024-05-30 08:56 | XMS_ITS | Continuity of Care Document ---
Author Organization [facility] Address [address] [place] [address]- Care Team Providers Care Truck Cleaner Name Role Phone Dylan Lu MD Primary Care Physician Encounter [facility] [place] Date(s): 11/06/20 - 12/06/20 [facility] [address] [place] [address]- Allergies, Adverse Reactions, Alerts Substance Reaction Severity [...] 9:00:00 EDT, 11/11/20 15:33:00 EST, Tablet, [id number], Partial fill upon patient request if the [...]
--- OUTSIDE RECORDS SUMMARY | 2024-05-30 08:56 | XMS_ITS | Continuity of Care Document ---
Author Organization [facility] Dary sushila Address [address] [place] [address] [address] [place] [address]- Care Team Providers Care Ocular Pathologist Name Role Phone Aly PALACIOS, Dylan S Primary Care Physician ( [phone] Encounter [facility] Date(s): 09/10/21 - 11/09/21 [facility] [address] [place], [place] [address] Attending Physician: Robin PALACIOS, William Baez Allergies, Adverse Reactions, Alerts Substance Reaction Severity Status Percocet GI upset, made me feel sick Active Immunizations Given and Recorded Vaccine Date Status Refusal Reason SARS-CoV-2 mRNA ([id number]) vax 10/21/21 Given influenza virus vaccine, inactivated [...] drug., 17... Start Date: 10/03/21 Status: Ordered FLUoxetine 20 mg oral capsule 20 mg, 1, capsule, By Mouth, Daily, [employer] Please take every morning every day and donot stop unless told by your doctor, # 30 capsule, Refills 1, Tot. Refills 1, Maintenance, 229:25:00 EST, Route to Pharmacy Electronically, C... Start Date: 10/21/21 Status: Ordered gabapentin 100 mg oral capsule 100 mg, 1, capsule, By Mouth, 3 times a day, # 90 capsule, Refills 1, Tot. Refills 1, Maintenance, 11/01/21 11:52:00 EST, Route to Pharmacy Electronically, [facility]/pharmacy #[id number], Partial fill upon patient request if the prescription is for a schedule II... Start Date: 11/01/21 Stop Date: 12/31/21 Status: Ordered Tylenol 8 Hour 650 mg [...] er surgery(Confirmed) Active Primary language spoken is Italian(Confirmed) Active Lobular carcinoma in situ (L CIS) , left breast, 2004(Confirmed) 2004 Active Migraine(Confirmed) 1987 Active Overweight(Confirmed) Active History of ASCUS, HPV + Pap smear 12/23/16. Last Pap 11/25/17 negative with negative HPV(Confirmed) Active Social History Social History Type Response Smoking Status Never smoker entered on: 01/11/14 Sex
--- OUTSIDE RECORDS SUMMARY | 2024-05-30 08:56 | XMS_ITS | Continuity of Care Document ---
Author Organization [facility] Dary sushila Address [address] [facility] [address] [place] [address]- Care Team Providers Care Mechanical Cad Drafter Name Role Phone Dylan Lu MD Primary Care Physician Encounter [facility] Date(s): 07/18/21 - 07/25/21 [facility] [address] [place] [address] Drive [address] [place], [place] [address] Attending Physician: William Kelly MD Referring Physician: Dylan Lu MD Allergies, Adverse Reactions, Alerts Substance Reaction Severity Status Percocet Active Immunizations Given and Recorded Vaccine Date [...] grams/day, # 100 Gm, 0 Refills, Maintenance, 05/01/21 9:01:00 EDT, Gel, [id number], Partial fill upon patient request if theprescription is for a schedule II opioid drug., 17... Start Date: 05/01/21 Status: Ordered MELATONIN 5 MG TABLET MELATONIN 5 MG TABLET, See Instructions, # 30 tablet, 3 Refills, TOME ANNAMARIE TABLETA POR VIA ORAL A DIARIO AL ACOSTARSE CUANDO SEA NECESARIO FOR INSOMNIA, 175, cm, 06/05/21 10:36:00 EDT, Height Start Date: 06/14/21 Status: Ordered Problem List Condition Effective Dates Status Health Status Inform ant History of subconjunctival hemorrhage(Confirmed) Active History of keloid of skin af er surgery(Confirmed) Active Primary language spoken is Hungarian(Confirmed) Active Lobular carcinoma in situ (L CIS) , left breast, 2004(Confirmed) 2004 Active Migraine(Confirmed) 1987 Active Overweight(Confirmed) Active History of ASCUS, HPV + Pap smear 12/23/16. Last Pap 11/25/17 negative with negative HPV(Confirmed) Active Vital Signs Most recent to oldest [Reference Range]: 1 Height 175 cm (07/18/21 9:54 AM) Weight 80.45 kg (07/18/21 9:54 AM) Body Mass Index [18.5-24.99] 26.27 *H* (07/18/21 9:54 AM) Temperature [96.8-100.4 DegF] 97.0 DegF (07/18/21 9:54 AM) Temperature Route Temporal (07/18/21 9:54 AM) Weight Obtained Via Standing scale (07/18/21 9:54 AM) Social History Social History Type Response Smoking Status Never smoker entered on: 01/11/14 Sex
--- OUTSIDE RECORDS SUMMARY | 2024-05-30 08:56 | XMS_ITS | Continuity of Care Document ---
Author Organization [facility] Address [address] [place] [address]- Care Team Providers Care Conveyor System Operator Name Role Phone Dylan Lu MD S Primary Care Physician Encounter [facility] [place] Date(s): 05/09/21 - 06/08/21 [facility] [address] [place] [address]- Attending Physician: Anali Brewer Admitting Physician: AdmAnali tolentino Referring Physician: Admtr, Ar8 Allergies, Adverse Reactions, [...] drug., 17... Start Date: 05/01/21 Status: Ordered hydrOXYzine hydrochloride 25 mg oral tablet 1 tablet = 25 mg, By Mouth, Once, PRN Sleep, Take about 15 to 30 minutes before bed. Do not take the benadryl if you're taking the hydroxyzine., # 90 tablet, 1 Refills, Soft Stop, 05/09/21 8:28:00 EDT, Tablet, [facility]/pharmacy #1130, Partial fill upon pat... Start Date: 05/09/21 Status: Ordered omeprazole 20 mg oral delayed release tablet 1 tablet = 20 mg, By Mouth, Daily, # 30 tablet, 0 Refills, Maintenance, 05/24/21 10:01:00 EDT, CR Tablet, [facility]/pharmacy #1130, Label in Nicaraguan. D/c Famotidine., 175, cm, 05/09/21 8:11:00 EDT, Height Start Date: 05/24/21 Status: Ordered Problem List Condition Effective Dates [...]
--- OUTSIDE RECORDS SUMMARY | 2024-05-30 08:56 | XMS_ITS | Continuity of Care Document ---
Author Organization [facility] Dary sushila Address [address] [place] [address] [address] [place] [address]- Care Team Providers Care Occasional Babysitter Name Role Phone Dylan Lu MD S Primary Care Physician Encounter [facility] [place] Date(s): 08/15/21 - 08/22/21 [facility] [address] [place], [place] [address] Attending Physician: William Kelly MD Allergies, Adverse [...] er surgery(Confirmed) Active Primary language spoken is Dominican(Confirmed) Active Lobular carcinoma in situ (L CIS) , left breast, 2004(Confirmed) 2004 Active Migraine(Confirmed) 1987 Active Overweight(Confirmed) Active History of ASCUS, HPV + Pap smear 12/23/16. Last Pap 11/25/17 negative with negative HPV(Confirmed) Active Vital Signs Most recent to oldest [Reference Range]: 1 Height 175 cm (08/15/21 10:23 AM) Temperature [96.8-100.4 DegF] 97.4 DegF (08/15/21 10:23 AM) Temperature Route Temporal (08/15/21 10:23 AM) Social History Social History Type Response Smoking Status Never smoker entered on: 01/11/14 Sex
--- OUTSIDE RECORDS SUMMARY | 2024-05-30 08:56 | XMS_ITS | Continuity of Care Document ---
Author Organization [facility] Dary sushila Address [address] [place] [address] [address] [place] [address]- Care Team Providers Care Guide Plant Name Role Phone Aly PALACIOS, Dylan Vasquez Primary Care Physician ( [phone] Encounter [facility] Date(s): 03/19/21 - 04/18/[address] [place], [place] [address] Allergies, Adverse Reactions, Alerts Substance [...]
--- OUTSIDE RECORDS SUMMARY | 2024-05-30 08:56 | XMS_ITS | Continuity of Care Document ---
Author Organization [facility] Address [address] [place] [address]- Care Team Providers Care Room Worker Name Role Phone Flako Benavides MD Primary Care Physician [phone] Encounter [facility] Date(s): 09/06/23 - 10/06/23 [facility] [address] [place], [place] [address] Allergies, Adverse Reactions, Alerts Substance Reaction Severity Status Percocet GI upset, made me feel sick Active Immunizations Given and Recorded Vaccine Date Status Refusal Reason SARS-CoV-2 mRNA (yfymnnw-dnpn-nrdwu) vax 10/21/21 Given influenza virus vaccine, inactivated [...] Gm, 12 Refills, Maintenance, 04/22/23 11:02:00 EDT, [id number], 25, APPLY TOPICALLY 4 TIMES DAILY NEEDED FOR PAIN NOT TO EXCEED 32 GRAMS DA... Start Date: 04/22/23 Status: Ordered eszopiclone 1 mg oral tablet 1 tablet = 1 mg, By Mouth, Daily, TAKE IMMEDIATELY BEFORE BED., # 30 tablet, 2 Refills, Maintenance, 08/03/23 8:10:00 EST, [facility]/pharmacy #1130, D/C DOXEPIN PLEASE, 175.3, cm, 07/27/23 10:07:00 EST, Height, 82.6, kg, 11/14/21 10:17:00 EST, Dry Weight Start Date: 08/03/23 Status: Ordered FLUoxetine 20 mg oral capsule 20 mg, 1, capsule, By Mouth, Daily, # 28 capsule, Refills 0, Tot. Refills 0, Maintenance, 10/01/23 16:50:00 EST, [id number] Partial fill upon patient request if the prescription is for a schedule II opioid drTj. Start Date: 10/01/23 Stop Date: 10/29/23 Status: Ordered meloxicam 15 mg oral tablet 1 tablet, By Mouth, Daily, INSTR:TAKE WITH FOOD. Prydeinig label please., # 30 tablet, 1 Refills, Maintenance, 08/26/23 9:15:00 EST, [facility]/pharmacy #1130, 175.3, cm, 08/18/23 9:52:00 EST, [...] Refills, Maintenance, 06/12/22 20:32:00 EDT, REC Powder, [facility], Partial fill upon patient request if the prescription is for... Start Date: 06/12/22 Status: Ordered tamoxifen 20 mg oral tablet 1 tablet = 20 mg, By Mouth, Daily, # 90 tablet, 0 Refills, Maintenance, 10/19/23 18:16:00 EST, Tablet, [facility]/pharmacy #1130, Partial fill upon patient request if the prescription is for a schedule II opioid drug., 175.3, cm, 09/01/23 10:09:00 EST, Heigh... Start Date: 10/19/23 Status: Ordered tamoxifen 20 mg oral tablet 1 tablet = 20 mg, By Mouth, Daily, for 30 days, # 30 tablet, 5 Refills, Hard Stop 10/19/23 18:16:00EST, 04/22/23 18:16:00 EDT, Tablet, [facility]/pharmacy #1130, Partial fill upon patient request if the prescription is for a schedule II opioid drug., 175.3,... Start Date: 04/22/23 Stop Date: 10/19/23 Status: [...] surgery Confirmed Active Primary language spoken is Prydeinig Confirmed Active Lobular carcinoma in situ (LCIS) [...] S Resident Member Role: PCP Address: Address: [address] [place] [address]- Name: Alfred RN, Homer Position: S RN Member Role: Primary Care Nurse Care Team Related Persons Name: PHOEBE SORTO Address: [address] [place] [address] Name: YAMILKA WELLER Address: [place] [address] Name: KITA ZAMBRANO Address: [address] [place] [address]
--- OUTSIDE RECORDS SUMMARY | 2024-05-30 08:56 | XMS_ITS | Continuity of Care Document ---
Author Organization [facility] Address [address] [place] [address]- Care Team Providers Care Certified Histologic Technician Name Role Phone Flako Benavides MD Primary Care Physician [phone] Encounter [facility] Date(s): 03/23/23 - 05/01/[address] [address] Attending Physician: Karsten Amador Admitting Physician: Karsten Amador Referring Physician: Karsten Amador Allergies, Adverse Reactions, Alerts Substance Reaction Severity Status Percocet GI upset, made me feel sick Active Immunizations Given and Recorded Vaccine Date Status Refusal Reason SARS-CoV-2 mRNA (cglqlwe-nftd-yixdh) vax 10/21/21 Given influenza virus vaccine, inactivated [...] Refills, Maintenance, 04/22/23 11:02:00 EDT, [facility], 25, APPLY TOPICALLY 4 TIMES DAILY NEEDED FOR PAIN NOT TO EXCEED 32 GRAMS DA... Start Date: 04/22/23 Status: Ordered meloxicam 15 mg oral tablet 1 tablet, By Mouth, Daily, INSTR:TAKE WITH FOOD., # 30 tablet, 0 Refills, Maintenance, 02/16/23 11:52:00 EDT, [facility], 175.3, cm, 01/07/23 11:19:00 EDT, Height, 82.6, [...] 06/12/22 20:32:00 EDT, REC Powder, [facility]/pharmacy #1130, Partial fill upon patient request if the prescription is for... Start Date: 06/12/22 Status: Ordered tamoxifen 20 mg oral tablet 1 tablet = 20 mg, By Mouth, Daily, # 30 tablet, 5 Refills, Maintenance, 04/22/23 18:16:00 EDT, Tablet, [facility]/pharmacy #1130, Partial fill upon patient request if [...] surgery Confirmed Active Primary language spoken is Palauan Confirmed Active Lobular carcinoma in situ (LCIS) [...] Team Personnel Name: Flako Benavides MD Position: [facility] Resident Member Role: PCP Address: Address: [address] [place] [address]- Name: Homer Simon RN Position: [facility] SN RN Member Role: Primary Care Nurse Care Team Related Persons Name: PHOEBE SORTO Address: home [address] [place] [address] Name: YAMILKA WELLER Address: [place] [address] Name: KITA ZAMBRANO Address: [address] [place] [address]
--- OUTSIDE RECORDS SUMMARY | 2024-05-30 08:56 | XMS_ITS | Continuity of Care Document ---
Author Organization [facility] Adult [facility] Address [address] [place] [address]- Care Team Providers Care Customs Investigator Name Role Phone Dylan Lu MD S Primary Care Physician Encounter [facility] [place] Date(s): 11/13/22 - 12/17/22 [facility] [address] [place] [address]- Attending Physician: Karsten Amador Admitting Physician: Karsten Amador Allergies, Adverse Reactions, Alerts Substance Reaction Severity Status Percocet GI upset, made me feel sick Active Immunizations Given and Recorded Vaccine Date Status Refusal Reason SARS-CoV-2 mRNA ([id number]-lxswd) vax 10/21/21 Given influenza virus vaccine, inactivated [...] 01/21/22 8:34:00 EDT, Route to Pharmacy Electronically, [facility]/pharmacy #1130, Partial fill upon patient request if the prescription i... Start Date: 01/21/22 Status: Ordered diclofenac 1% topical gel See Instructions, APPLY TOPICALLY 4 TIMES DAILY NEEDED FOR PAIN NOT TO EXCEED 32 GRAMS DAILY., #100 Gm, 12 Refills, [facility], 25, APPLY TOPICALLY 4 TIMES DAILY NEEDED FOR PAIN NOT TO EXCEED 32 GRAMS DAILY., 175, cm, 01/21/22 7:55:00 EDT,... Start Date: 04/16/22 Status: Ordered Diflucan 150 mg oral tablet 1 tablet = 150 mg, By Mouth, Once, # 1 tablet, 0 Refills, Soft Stop, 12/06/21 12:35:00 EDT, [facility]/pharmacy #1130, Partial fill upon patient request if the prescription is for a schedule II opioid drug., 175, cm, 11/26/21 9:31:00 EDT, Height, 82.6, kg, 0... Start Date: 12/06/21 Status: Ordered FLUoxetine 20 mg oral tablet 1.5 tablet = 30 mg, By Mouth, Daily, Jordanian label please., # 45 tablet, 5 Refills, Maintenance, 09/24/22 8:25:00 EST, [facility]/pharmacy #1130, Dose increase to 30mg qd 09/24/22, 175.3, cm, 08/06/22 10:40:00 EST, Height, 82.6, kg, 11/14/21 10:17:00 EST, Dry... Start Date: 09/24/22 Status: Ordered gabapentin 100 mg oral capsule 100 mg, 1, capsule, By Mouth, 3 times a day, # 90 capsule, Refills 1, Tot. Refills 1, Maintenance, 11/01/21 11:52:00 EST, Route to Pharmacy Electronically, [facility]/pharmacy #1130, Partial fill upon patient request if the prescription is for a schedule II... Start Date: 11/01/21 Stop Date: 12/31/21 Status: Ordered hydrOXYzine hydrochloride 25 mg oral tablet 1 tablet = 25 mg, By Mouth, Daily at bedtime, Jordanian label please., # 30 tablet, 3 Refills, Maintenance, 09/24/22 8:26:00 EST, [facility]/pharmacy #1130, Partial fill upon patient request if the prescription is for a schedule II opioid drug., 175.3, cm, 11... Start Date: 09/24/22 Status: Ordered meloxicam 15 mg oral tablet 1 tablet = 15 mg, By Mouth, Daily, for pain take with food Jordanian label please., # 30 tablet, 1 Refills, Maintenance, 10/23/22 16:20:00 EST, [facility], Partial fill upon patient request if the prescription is for a schedule II opioid drug.... Start Date: 10/23/22 Status: Ordered psyllium 2.4 g/3.7 g oral powder for reconstitution = 2.4 Gm, By Mouth, 2 times a day, PRN as needed for constipation, dissolve in 8 oz of fluid, # 30 pack/packet, 1 Refills, Maintenance, 06/12/22 20:32:00 EDT, REC Powder, [facility]/pharmacy #1130, Partial fill upon patient request if [...] 07/25/22 14:47:00 EST, Route to Pharmacy Electronically, [facility]/pharmacy #1130, Partial fill upon patient request if the prescription is for a schedule II opio... Start Date: 07/25/22 Stop Date: 07/30/22 Status: Ordered traZODone 50 mg oral tablet 50 mg, 1, tablet, By Mouth, Daily at bedtime, for sleep Jordanian label please, # 30 tablet, Refills 5, Tot. Refills 5, Maintenance, 11/13/22 16:13:00 EST, Route to Pharmacy Electronically, [facility]/pharmacy #1130, Partial fill upon patient request if the p... Start Date: 11/13/22 Status: Ordered Tylenol 8 Hour 650 mg [...] surgery Confirmed Active Primary language spoken is Jordanian Confirmed Active Lobular carcinoma in situ (LCIS) , left breast, 2004 Confirmed 2004 Active Migraine Confirmed 1987 Active Overweight Confirmed Active History of ASCUS, HPV + Pap smear 12/23/16. Last Pap 11/25/17 negative with negative HPV Confirmed Active Social History Social History Type Response Smoking Status Never smoker entered on: 01/11/14 Sex Patient Care team information Care Team Personnel Name: Aly PALACIOS, Dylan Vasquez Position: [facility] Resident Member Role: PCP Address: Address: [address] [place] [address]- Name: Alfred SUMMERS, Homer Position: [facility] RN Member Role: Primary Care Nurse Care Team Related Persons Name: PHOEBE SORTO Address: home [address] [place] [address] Name: YAMILKA WELLER Address: [place] [address] Name: KITA ZAMBRANO Address: home [address] [place] [address]
--- OUTSIDE RECORDS SUMMARY | 2024-05-30 08:56 | XMS_ITS | Continuity of Care Document ---
Author Organization [facility] Adult [facility] Address [address] [place] [address]- Care Team Providers Care It Security Consultant Name Role Phone Flako Benavides MD Primary Care Physician [phone] Encounter [facility] Date(s): 12/17/23 - 01/16/24 [facility] [address] [place], [place] [phone] Attending Physician: Anali Brewer Admitting Physician: AdmtrAnali Referring Physician: AdmtrAnali Allergies, Adverse Reactions, Alerts Substance Reaction Severity Status Percocet GI upset, made me feel sick Active Immunizations Given and Recorded Vaccine Date Status Refusal Reason SARS-CoV-2 mRNA (mjtxnnn-awwc-yurfc) vax 10/21/21 Given influenza virus vaccine, inactivated [...] tablet, 5 Refills, Maintenance, 12/17/23 8:47:00 EDT, [facility]/pharmacy #1130, Partial fill upon patient request if the prescription is for a schedule II opioid drug., 175.3, cm, 12/17/23 8:18:0... Start Date: 12/17/23 Status: Ordered diclofenac 1% topical gel See Instructions, APPLY TOPICALLY 4 TIMES DAILY NEEDED FOR PAIN NOT TO EXCEED 32 GRAMS DAILY., #100 Gm, 12 Refills, Maintenance, 12/17/23 8:47:00 EDT, [facility]/pharmacy #1130, 25, APPLY TOPICALLY 4 TIMES DAILY NEEDED FOR PAIN NOT TO EXCEED 32 GRAMS... Start Date: 12/17/23 Status: Ordered eszopiclone 1 mg oral tablet 1 tablet = 1 mg, By Mouth, Daily, TAKE IMMEDIATELY BEFORE BED. Congolese label please, # 30 tablet, 0Refills, Maintenance, 11/05/23 15:48:00 EST, [facility], D/C DOXEPIN PLEASE, 175.3, cm, 10/01/23 17:00:00 EST, Height, 82.6, kg, 11/14/21 10:17... Start Date: 11/05/23 Status: Ordered FLUoxetine 40 mg oral capsule 1 capsule = 40 mg, By Mouth, Daily, Congolese label please, # 30 capsule, 5 Refills, Maintenance, 11/03/23 10:11:00 EST, [facility], dose increase to 40mg 11/03/23, 175.3, cm, 10/01/23 17:00:00 EST, Height, 82.6, kg, 11/14/21 10:17:00 EST, Dry We... Start Date: 11/03/23 Status: Ordered meloxicam 15 mg oral tablet 1 tablet, By Mouth, Daily, INSTR:TAKE WITH FOOD. Congolese label please., # 30 tablet, 1 Refills, Maintenance, 08/26/23 9:15:00 EST, [facility], 175.3, cm, 08/18/23 9:52:00 EST, Height, [...] 20 mg oral tablet See Instructions, KHADIJAH PATRICIA LOS EMMANUEL, # 90 tablet, 3 Refills, Maintenance, [...] surgery Confirmed Active Primary language spoken is Congolese Confirmed Active Lobular carcinoma in situ (LCIS) [...] Team Personnel Name: Flako Benavides MD Position: [facility] Resident Member Role: PCP Address: Address: [address] [place] [address]- Name: Homer Simon RN Position: [facility] SN RN Member Role: Primary Care Nurse Care Team Related Persons Name: PHOEBE SORTO Address: home [address] [place] [address] Name: YAMILKA WELLER Address: [place] [address] Name: KITA ZAMBRANO Address: home [address] [place] [address]
--- OUTSIDE RECORDS SUMMARY | 2024-05-30 08:56 | XMS_ITS | Continuity of Care Document ---
Author Organization [facility] ter Address [address] [place] [address]- Care Team Providers Care Form Worker Name Role Phone Dylan Lu MD Primary Care Physician Encounter [facility] [place] Date(s): 06/12/22 - 06/12/[address] [address] Discharge Disposition: A-D/C Home Attending Physician: Mikael Doss MD Admitting Physician: Mikael Doss MD Referring Physician: Mikael Doss MD Allergies, Adverse Reactions, Alerts Substance Reaction Severity Status Percocet GI upset, made me feel sick Active Immunizations Given and Recorded Vaccine Date Status Refusal Reason SARS-CoV-2 mRNA ([id number]) vax 10/21/21 Given influenza virus vaccine, inactivated [...] 01/21/22 8:34:00 EDT, Route to Pharmacy Electronically, [facility]/pharmacy #1130, Partial fill upon patient request if the prescription i... Start Date: 01/21/22 Status: Ordered diclofenac 1% topical gel See Instructions, APPLY TOPICALLY 4 TIMES DAILY NEEDED FOR PAIN NOT TO EXCEED 32 GRAMS DAILY., #100 Gm, 12 Refills, [facility], 25, APPLY TOPICALLY 4 TIMES DAILY NEEDED [...] 20 mg, 1, capsule, By Mouth, Daily, TURKMEN INSTRUCTIONS Please take every morning every day [...] 11/01/21 11:52:00 EST, Route to Pharmacy Electronically, [facility]/pharmacy #1130, Partial fill upon patient request if the prescription is for a schedule II... Start Date: 11/01/21 Stop Date: 12/31/21 Status: Ordered psyllium 2.4 g/3.7 g oral powder for reconstitution = 2.4 Gm, By Mouth, 2 times a day, PRN as needed for constipation, dissolve in 8 oz of fluid, # 30 pack/packet, 1 Refills, Maintenance, 06/12/22 20:32:00 EDT, REC Powder, [facility]/pharmacy #1130, Partial fill upon patient request if the prescription is for... Start Date: 06/12/22 Status: Ordered tiZANidine 2 mg oral capsule 1 capsule = 2 mg, By Mouth, 3 times a day, PRN as needed for muscle spasm, # 40 capsule, 1 Refills,Maintenance, 04/30/22 10:45:00 EDT, Capsule, [facility]/pharmacy #1130, Partial fill upon patient request if [...] surgery Confirmed Active Primary language spoken is Filipino Confirmed Active Lobular carcinoma in situ (LCIS) , left breast, 2004 Confirmed 2004 Active Migraine Confirmed 1987 Active Overweight Confirmed Active History of ASCUS, HPV + Pap smear 12/23/16. Last Pap 11/25/17 negative with negative HPV Confirmed Active Procedures Procedure Date Related Diagnosis Body Site Status Colonoscopy with polypectomy 06/12/22 Completed Vital Signs Most recent to oldest [Reference Range]: 1 2 3 Height 175.3 cm (06/12/22 10:09 AM) Weight 80.7 kg (06/12/22 10:09 AM) Oxygen Saturation [94-100 %] 100 % (06/12/22 11:31 AM) 100 % (06/12/22 11:29 AM) 99 % (06/12/22 11:20 AM) Pulse Rate [55-90 bpm] 74 bpm (06/12/22 10:09 AM) Body Mass Index [18.5-24.99 kg/m2] 26.26 kg/m2 *H* (06/12/22 10:09 AM) Blood Pressure [90-138/55-84 mm Hg] 119/77mm Hg (06/12/22 11:31 AM) 118/71mm Hg (06/12/22 11:29 AM) 110/77mm Hg (06/12/22 11:20 AM) Respiratory Rate [16-30 br/min] 16 br/min (06/12/22 11:31 AM) 17 br/min (06/12/22 11:29 AM) 15 br/min *L* (06/12/22 11:20 AM) Temperature [96.8-100.4 DegF] 98.7 DegF (06/12/22 10:09 AM) Mode of Delivery (Oxygen) Room air (06/12/22 11:31 AM) Room air (06/12/22 11:29 AM) Room air (06/12/22 11:20 AM) Temperature Route Temporal (06/12/22 10:09 AM) Social History Social History Type Response Smoking Status Never smoker entered on: 01/11/14 Sex Patient Care team information Personnel Name: Dylan Lu MD Address: Address: [address] [place] [address] [place], [place] [address]
--- OUTSIDE RECORDS SUMMARY | 2024-05-30 08:57 | XMS_ITS | Continuity of Care Document ---
Author Organization [facility] Adult [facility] Address [address] [place] [address]- Care Team Providers Care Canvas Baster Name Role Phone Dylan Lu MD S Primary Care Physician Encounter [facility] Date(s): 08/26/21 - 09/25/21 [facility] Adult [facility] [address] [place] [address]- Attending Physician: Anali Brewer Admitting Physician: AdmAnali [...] er surgery(Confirmed) Active Primary language spoken is Guinean(Confirmed) Active Lobular carcinoma in situ (L CIS) , left breast, 2004(Confirmed) 2004 Active Migraine(Confirmed) 1987 Active Overweight(Confirmed) Active History of ASCUS, HPV + Pap smear 12/23/16. Last Pap 11/25/17 negative with negative HPV(Confirmed) Active Social History Social History Type Response Smoking Status Never smoker entered on: 01/11/14 Sex
--- OUTSIDE RECORDS SUMMARY | 2024-05-30 08:57 | XMS_ITS | Continuity of Care Document ---
Author Organization [facility] Adult [facility] Address [address] [place] [address]- Care Team Providers Care Heel Packer Name Role Phone Flako Benavides MD Primary Care Physician [place] [facility] Date(s): 06/04/23 - 07/22/23 [facility] [address] [place] [id number] Attending Physician: Not on Staff, Attending MD Allergies, Adverse Reactions, Alerts Substance Reaction Severity Status Percocet GI upset, made me feel sick Active Immunizations Given and Recorded Vaccine Date Status Refusal Reason SARS-CoV-2 mRNA (hmxdbtf-ynoi-yyiva) vax 10/21/21 Given influenza virus vaccine, inactivated [...] Refills, Maintenance, 04/22/23 11:02:00 EDT, [id number], 25, APPLY TOPICALLY 4 TIMES DAILY NEEDED FOR PAIN NOT TO EXCEED 32 GRAMS DA... Start Date: 04/22/23 Status: Ordered meloxicam 15 mg oral tablet 1 tablet, By Mouth, Daily, INSTR:TAKE WITH FOOD., # 30 tablet, 0 Refills, Maintenance, 02/16/23 11:52:00 EDT, [id number], 175.3, cm, 01/07/23 11:19:00 EDT, Height, 82.6, [...] Refills, Maintenance, 06/12/22 20:32:00 EDT, REC Powder, [facility]/pharmacy #1130, Partial fill upon patient request if the prescription is for... Start Date: 06/12/22 Status: Ordered tamoxifen 20 mg oral tablet 1 tablet = 20 mg, By Mouth, Daily, # 30 tablet, 5 Refills, Maintenance, 04/22/23 18:16:00 EDT, Tablet, [facility]/pharmacy #1130, Partial fill upon patient request [...] surgery Confirmed Active Primary language spoken is Comoran Confirmed Active Lobular carcinoma in situ (LCIS) [...] Team Personnel Name: Flako Benavides MD Position: [facility] Resident Member Role: PCP Address: Address: [address] [place] [address]- Name: Homer Simon RN Position: [facility] SN RN Member Role: Primary Care Nurse Care Team Related Persons Name: PHOEBE SORTO Address: home [address] [place] [address] Name: YAMILKA WELLER Address: [place] [address] Name: KITA ZAMBRANO Address: home [address] [place] [address]
--- OUTSIDE RECORDS SUMMARY | 2024-05-30 08:57 | XMS_ITS | Continuity of Care Document ---
Author Organization [facility] Dary sushila Address [address] [place] [address] [address] [place] [address]- Care Team Providers Care Manager Marketing Communication Name Role Phone Dylan Lu MD Primary Care Physician Encounter [facility] Date(s): 04/10/22 - 05/10/22 [facility] [address] [place], [place] [address] Attending Physician: AdmAnali tolentino Admitting Physician: Admtr, Anali Referring Physician: Admtr, Ar8 Allergies, Adverse Reactions, Alerts Substance Reaction Severity Status Percocet GI upset, made me feel sick Active Immunizations Given and Recorded Vaccine Date Status Refusal Reason SARS-CoV-2 mRNA (gmtnqlu-qvoa-ownvd) vax 10/21/21 Given influenza virus vaccine, inactivated [...] 01/21/22 8:34:00 EDT, Route to Pharmacy Electronically, [facility]/pharmacy #1130, Partial fill upon patient request if the prescription i... Start Date: 01/21/22 Status: Ordered diclofenac 1% topical gel See Instructions, APPLY TOPICALLY 4 TIMES DAILY NEEDED FOR PAIN NOT TO EXCEED 32 GRAMS DAILY., #100 Gm, 12 Refills, [facility], 25, APPLY TOPICALLY 4 TIMES DAILY NEEDED FOR PAIN NOT TO EXCEED 32 GRAMS DAILY., 175, cm, 01/21/22 7:55:00 EDT,... Start Date: 04/16/22 Status: Ordered Diflucan 150 mg oral tablet 1 tablet = 150 mg, By Mouth, Once, # 1 tablet, 0 Refills, Soft Stop, 12/06/21 12:35:00 EDT, [facility]/pharmacy #1130, Partial fill upon patient request if the prescription is for a schedule II opioid drug., 175, cm, 11/26/21 9:31:00 EDT, Height, 82.6, kg, 0... Start Date: 12/06/21 Status: Ordered FLUoxetine 20 mg oral capsule 20 mg, 1, capsule, By Mouth, Daily, MOZAMBICAN INSTRUCTIONS Please take every morning every day [...] 11/01/21 11:52:00 EST, Route to Pharmacy Electronically, [facility]/pharmacy #1130, Partial fill upon patient request if the prescription is for a schedule II... Start Date: 11/01/21 Stop Date: 12/31/21 Status: Ordered nabumetone 500 mg oral tablet 1 tablet = 500 mg, By Mouth, 2 times a day, # 20 tablet, 0 Refills, Maintenance, 04/30/22 10:45:00 EDT, Tablet, [facility]/pharmacy #1130, Partial fill upon patient request [...] 0 Refills, Maintenance, 06/11/22 17:00:00 EDT, RECPowder, [facility]/pharmacy #1130, test date 06/12/22 . CA... Start Date: 06/11/22 Status: Ordered tiZANidine 2 mg oral capsule 1 capsule = 2 mg, By Mouth, 3 times a day, PRN as needed for muscle spasm, # 40 capsule, 1 Refills,Maintenance, 04/30/22 10:45:00 EDT, Capsule, [facility]/pharmacy #1130, Partial fill upon patient request [...] er surgery(Confirmed) Active Primary language spoken is Pakistani(Confirmed) Active Lobular carcinoma in situ (L CIS) , left breast, 2004(Confirmed) 2004 Active Migraine(Confirmed) 1987 Active Overweight(Confirmed) Active History of ASCUS, HPV + Pap smear 12/23/16. Last Pap 11/25/17 negative with negative HPV(Confirmed) Active Social History Social History Type Response Smoking Status Never smoker entered on: 01/11/14 Sex Care Team Personnel Name: Dylan Lu MD Address: [address] [place] [address]
--- OUTSIDE RECORDS SUMMARY | 2024-05-30 08:57 | XMS_ITS | Continuity of Care Document ---
Author Organization [facility] Madelin Harden Address [address], [address] [place] [address]- Care Team Providers Care Panel Fitter Name Role Phone Aly PALACIOS, Dylan Vasquez Primary Care Physician [place] [facility] [place] 07[place]16[place]21 - 07/23/21 [facility] [address], [address] [place], [place] [address] Attending Physician: Smith Valenzuela MD Referring Physician: Susan Vila DO Allergies, Adverse Reactions, Alerts Substance Reaction Severity [...] er surgery(Confirmed) Active Primary language spoken is Swedish(Confirmed) Active Lobular carcinoma in situ (L CIS) , left breast, 2004(Confirmed) 2004 Active Migraine(Confirmed) 1987 Active Overweight(Confirmed) Active History of ASCUS, HPV + Pap smear 12/23/16. Last Pap 11/25/17 negative with negative HPV(Confirmed) Active Procedures Procedure Date Related Diagnosis Body Site Status Arthroscopy 05/03/10 Completed Left knee diagnostic and ope rative arthroscopy with partial lateral meniscectomy 02/02/09 Completed Right knee diagnostic and op erative arthroscopy with partial lateral meniscectomy 04/08/06 Completed Left breast wire localizatio n and lumpectomy 12/03/04 Completed Hernia repair, left side 2001 Completed Panniculectomy Completed Tubal ligation Completed Vital Signs Most recent to oldest [Reference Range]: 1 Height 175 cm (07/16/21 8:15 AM) Weight 80.4 kg (07/16/21 8:15 AM) Body Mass Index [18.5-24.99] 26.25 *H* (07/16/21 8:15 AM) Blood Pressure [90-138/55-84 mm Hg] 132/ 87mm Hg (07/16/21 8:15 AM) Blood pressure sites Arm, right (07/16/21 8:15 AM) Weight Obtained Via Standing scale (07/16/21 8:15 AM) Social History Social History Type Response Smoking Status Never smoker entered on: 01/11/14 Sex
--- OUTSIDE RECORDS SUMMARY | 2024-05-30 08:57 | XMS_ITS | Continuity of Care Document ---
Author Organization [facility] Dary sushila Address [address] [place] [address] [address] [place] [address]- Care Team Providers Care Drier Feeder Name Role Phone Dylan Lu MD Primary Care Physician [facility]counter [facility] Date(s): 12/13/21 - 01/12/22 [facility] [address] [place], [place] [address] Attending Physician: Admrajan, Anali Admitting Physician: Admtr, Ar8 Referring Physician: Admtr, Ar8 Allergies, Adverse Reactions, Alerts Substance Reaction Severity Status Percocet GI upset, made me feel sick Active Immunizations Given and Recorded Vaccine Date Status Refusal Reason SARS-CoV-2 mRNA (lvzxfmz-buow-irzmg) vax 10/21/21 Given influenza virus vaccine, inactivated [...] 32 GRAMS/DAY, # 100 Gm, 1 Refills, [facility], 30, APPLY TOPICALLY 4 TIMES A DAY CUANDO SEA NECESARIO FOR PAIN NOT TO EXCEED 32 GRAMS/DAY, 175, cm, ... Start Date: 11/25/21 Status: Ordered Diflucan 150 mg oral tablet 1 tablet = 150 mg, By Mouth, Once, # 1 tablet, 0 Refills, Soft Stop, 12/06/21 12:35:00 EDT, [facility]/pharmacy #1130, Partial fill upon patient request if the prescription is for a schedule II opioid drug., 175, cm, 11/26/21 9:31:00 EDT, Height, 82.6, kg, 0... Start Date: 12/06/21 Status: Ordered FLUoxetine 20 mg oral capsule 20 mg, 1, capsule, By Mouth, Daily, PALAUAN INSTRUCTIONS Please take every morning every day [...] 11/01/21 11:52:00 EST, Route to Pharmacy Electronically, [facility]/pharmacy #1130, Partial fill upon patient request [...] 0 Refills, Maintenance, 06/11/22 17:00:00 EDT, [place], [facility]/pharmacy #1130, test date 06/12/22 . CA... [...] er surgery(Confirmed) Active Primary language spoken is Macedonian(Confirmed) Active Lobular carcinoma in situ (L CIS) , left breast, 2004(Confirmed) 2004 Active Migraine(Confirmed) 1987 Active Overweight(Confirmed) Active History of ASCUS, HPV + Pap smear 12/23/16. Last Pap 11/25/17 negative with negative HPV(Confirmed) Active Social History Social History Type Response Smoking Status Never smoker entered on: 01/11/14 Sex
--- OUTSIDE RECORDS SUMMARY | 2024-05-30 08:57 | XMS_ITS | Continuity of Care Document ---
Author Organization [facility] Address [address] [place] [address]- Care Team Providers Care Assistant Winemaker Name Role Phone Dylan Lu MD Primary Care Physician Encounter [facility] Date(s): 01/11/21 - 02/10/21 [facility] [address] [place] [address]- Allergies, Adverse Reactions, Alerts Substance Reaction Severity [...]
--- OUTSIDE RECORDS SUMMARY | 2024-05-30 08:57 | XMS_ITS | Continuity of Care Document ---
Author Organization [facility] Address [address] [place] [address]- Care Team Providers Care Foil Cutter Name Role Phone Dylan Lu MD S Primary Care Physician Encounter [facility] Date(s): 05/22/21 - 06/21/21 [facility] [address] [place], [place] [address] Allergies, Adverse Reactions, Alerts Substance Reaction Severity [...] Refills, Soft Stop, 05/09/21 8:28:00 EDT, Tablet, [facility]/pharmacy #1130, Partial fill upon pat... Start Date: 05/09/21 Status: Ordered MELATONIN 5 MG TABLET MELATONIN 5 MG TABLET, See Instructions, # 30 tablet, 3 Refills, TOME ANNAMARIE TABLETA POR VIA ORAL A DIARIO AL ACOSTARSE CUANDO SEA NECESARIO FOR INSOMNIA, 175, cm, 06/05/21 10:36:00 EDT, Height Start Date: 06/14/21 Status: Ordered omeprazole 20 mg oral enteric coated capsule See Instructions, TOME ANNAMARIE CAPSULA TODOS LOS EMMANUEL, # 30 capsule, 2 Refills, Maintenance, 06/17/21 9:19:00 EDT, [facility], 175, cm, 06/05/21 10:36:00 EDT, Height Start Date: 06/17/21 Status: Ordered Problem List Condition Effective Dates [...]
--- OUTSIDE RECORDS SUMMARY | 2024-05-30 08:57 | XMS_ITS | Continuity of Care Document ---
Author Organization [facility] Address [address] [place] [address]- Care Team Providers Care Visor Installer Name Role Phone Dylan Lu MD Primary Care Physician ( [phone] [facility]counter [facility] Date[facility]s): 04/29/21 - 05/29/21 [facility] [address] [place] [address]- Allergies, Adverse Reactions, Alerts Substance Reaction Severity [...] Refills, Soft Stop, 05/09/21 8:28:00 EDT, Tablet, [facility]/pharmacy #[id number], Partial fill upon pat... Start Date: 05/09/21 Status: Ordered omeprazole 20 mg oral delayed release tablet 1 tablet = 20 mg, By Mouth, Daily, # 30 tablet, 0 Refills, Maintenance, 05/24/21 10:01:00 EDT, CR Tablet, [facility]/pharmacy #1130, Label in Arabic. D/c Famotidine., 175, cm, 05/09/21 8:11:00 EDT, [...]
--- OUTSIDE RECORDS SUMMARY | 2024-05-30 08:57 | XMS_ITS | Continuity of Care Document ---
Author Organization [facility] [employer] Address [address], [address] [place] [address]- Care Team Providers Care Mobile Home Lot Utility Worker Name Role Phone Dylan Lu MD Primary Care Physician Encounter [facility] Date(s): 07/16/21 - 08/15/21 [facility] [address], [address] [place], [place] [address] Attending Physician: Anali Brewer Admitting Physician: AdmtrAnali Referring Physician: Admtr, Ar8 Allergies, Adverse Reactions, [...] VIS GIVEN 4Admin Note: vis given Medications cephalexin monohydrate 500 mg oral capsule 1 capsule = 500 mg, By Mouth, 3 times a day, for 5 days, # 15 capsule, 0 Refills, Acute 08/20/21 10:48:00 EST, 08/15/21 10:48:00 EST, [facility]/pharmacy #1130, Partial fill upon patient request if the prescription is for a schedule II opioid drug., 175, cm,... Start Date: 08/15/21 Stop Date: 08/20/21 Status: Ordered diclofenac 1% topical gel 1 application, Topically, [...] er surgery(Confirmed) Active Primary language spoken is Ugandan(Confirmed) Active Lobular carcinoma in situ (L CIS) , left breast, 2004(Confirmed) 2004 Active Migraine(Confirmed) 1987 Active Overweight(Confirmed) Active History of ASCUS, HPV + Pap smear 12/23/16. Last Pap 11/25/17 negative with negative HPV(Confirmed) Active Social History Social History Type Response Smoking Status Never smoker entered on: 01/11/14 Sex
--- OUTSIDE RECORDS SUMMARY | 2024-05-30 08:57 | XMS_ITS | Continuity of Care Document ---
Author Organization [facility] Address [address] [place] [address]- Care Team Providers Care Drafting Engineer Name Role Phone Dylan Lu MD Primary Care Physician Encounter [facility] [place] [facility] Date(s): 04/22/21 - 05/22/21 [facility] [address] [place] [address]- Allergies, Adverse Reactions, Alerts Substance Reaction Severity [...] drug., 17... Start Date: 05/01/21 Status: Ordered famotidine 20 mg oral tablet 20 mg, 1, tablet, By Mouth, Daily, prn stomach upset, # 30 tablet, Refills 0, Tot. Refills 0, Maintenance, 05/01/21 9:02:00 EDT, Route to Pharmacy Electronically, [facility]/pharmacy #1130, Partial fill upon patient request if the prescription is for a sched... Start Date: 05/01/21 Status: Ordered hydrOXYzine hydrochloride 25 mg oral tablet 1 tablet = 25 mg, By Mouth, Once, PRN Sleep, Take about 15 to 30 minutes before bed. Do not take the benadryl if you're taking the hydroxyzine., # 90 tablet, 1 Refills, Soft Stop, 05/09/21 8:28:00 EDT, Tablet, [facility]/pharmacy #1130, Partial fill upon pat... Start Date: 05/09/21 Status: Ordered Problem List Condition Effective Dates [...]
--- OUTSIDE RECORDS SUMMARY | 2024-05-30 08:57 | XMS_ITS | Continuity of Care Document ---
Author Organization [facility] Address [address] [place] [address]- Care Team Providers Care Retail Business Manager Name Role Phone Flako Benavides MD Primary Care Physician [facility] Date[facility]s): 08/25/23 - 09/24/23 [facility] [address] [place], [place] [address] Allergies, Adverse Reactions, Alerts Substance Reaction Severity Status Percocet GI upset, made me feel sick Active Immunizations Given and Recorded Vaccine Date Status Refusal Reason SARS-CoV-2 mRNA ([id number]-[id number]-aciuz) vax 10/21/21 Given influenza virus vaccine, inactivated [...] Gm, 12 Refills, Maintenance, 04/22/23 11:02:00 EDT, [id number], 25, APPLY TOPICALLY 4 TIMES DAILY NEEDED FOR PAIN NOT TO EXCEED 32 GRAMS DA... Start Date: 04/22/23 Status: Ordered eszopiclone 1 mg oral tablet 1 tablet = 1 mg, By Mouth, Daily, TAKE IMMEDIATELY BEFORE BED., # 30 tablet, 2 Refills, Maintenance, 08/03/23 8:10:00 EST, [facility]/pharmacy #1130, D/C DOXEPIN PLEASE, 175.3, cm, 07/27/23 10:07:00 EST, Height, 82.6, kg, 11/14/21 10:17:00 EST, Dry Weight Start Date: 08/03/23 Status: Ordered meloxicam 15 mg oral tablet 1 tablet, By Mouth, Daily, INSTR:TAKE WITH FOOD. Jamaican label please., # 30 tablet, 1 Refills, Maintenance, 08/26/23 9:15:00 EST, [facility]/pharmacy #1130, 175.3, cm, 08/18/23 9:52:00 EST, Height, [...] Refills, Maintenance, 06/12/22 20:32:00 EDT, REC Powder, [facility]/pharmacy #1130, Partial fill upon patient request if the prescription is for... Start Date: 06/12/22 Status: Ordered tamoxifen 20 mg oral tablet 1 tablet = 20 mg, By Mouth, Daily, # 90 tablet, 0 Refills, Maintenance, 10/19/23 18:16:00 EST, Tablet, [facility], Partial fill upon patient request if the prescription is for a schedule II opioid drug., 175.3, cm, 09/01/23 10:09:00 EST, Heigh... Start Date: 10/19/23 Status: Ordered tamoxifen 20 mg oral tablet 1 tablet = 20 mg, By Mouth, Daily, for 30 days, # 30 tablet, 5 Refills, Hard Stop 10/19/23 18:16:00EST, 04/22/23 18:16:00 EDT, Tablet, [facility], Partial fill upon patient request [...] surgery Confirmed Active Primary language spoken is Jamaican Confirmed Active Lobular carcinoma in situ (LCIS) [...] Team Personnel Name: Flako Benavides MD Position: [facility] Resident Member Role: PCP Address: Address: [address] [place] [address]- Name: Alfred SUMMERS, Homer Position: [facility] RN Member Role: Primary Care Nurse Care Team Related Persons Name: PHOEBE SORTO Address: home [address] [place] [address] Name: YAMILKA WELLER Address: [place] [address] Name: KITA ZAMBRANO Address: home [address] [place] [address]
--- OUTSIDE RECORDS SUMMARY | 2024-05-30 08:57 | XMS_ITS | Continuity of Care Document ---
Author Organization [facility] Address [address] [place] [address]- Care Team Providers Care Wholesale Account Manager Name Role Phone Aly PALACIOS, Dylan S Primary Care Physician [facility]counter [facility] Date(s): 06/05/22 - 07/05/[address] [address] Attending Physician: Yonathan Mary Admitting Physician: Yonathan Mary Referring Physician: Yonathan Mary Allergies, Adverse Reactions, Alerts Substance Reaction Severity Status Percocet GI upset, made me feel sick Active Immunizations Given and Recorded Vaccine Date Status Refusal Reason SARS-CoV-2 mRNA (gvamuyl-gcth-qagtf) vax 10/21/21 Given influenza virus vaccine, inactivated [...] 01/21/22 8:34:00 EDT, Route to Pharmacy Electronically, [facility]/pharmacy #1130, Partial fill upon patient request if the prescription i... Start Date: 01/21/22 Status: Ordered diclofenac 1% topical gel See Instructions, APPLY TOPICALLY 4 TIMES DAILY NEEDED FOR PAIN NOT TO EXCEED 32 GRAMS DAILY., #100 Gm, 12 Refills, [facility] STORE [id number], 25, APPLY TOPICALLY 4 TIMES DAILY NEEDED FOR PAIN NOT TO EXCEED 32 GRAMS DAILY., 175, cm, 01/21/22 7:55:00 EDT,... Start Date: 04/16/22 Status: Ordered Diflucan 150 mg oral tablet 1 tablet = 150 mg, By Mouth, Once, # 1 tablet, 0 Refills, Soft Stop, 12/06/21 12:35:00 EDT, [facility]/pharmacy #1130, Partial fill upon patient request if the prescription is for a schedule II opioid drug., 175, cm, 11/26/21 9:31:00 EDT, Height, 82.6, kg, 0... Start Date: 12/06/21 Status: Ordered FLUoxetine 20 mg oral capsule 20 mg, 1, capsule, By Mouth, Daily, [place] INSTRUCTIONS Please take every morning every day [...] 11/01/21 11:52:00 EST, Route to Pharmacy Electronically, [facility]/pharmacy #1130, Partial fill upon patient request if the prescription is for a schedule II... Start Date: 11/01/21 Stop Date: 12/31/21 Status: Ordered psyllium 2.4 g/3.7 g oral powder for reconstitution = 2.4 Gm, By Mouth, 2 times a day, PRN as needed for constipation, dissolve in 8 oz of fluid, # 30 pack/packet, 1 Refills, Maintenance, 06/12/22 20:32:00 EDT, REC Powder, [facility]/pharmacy #1130, Partial fill upon patient request if the prescription is for... Start Date: 06/12/22 Status: Ordered tiZANidine 2 mg oral capsule 1 capsule = 2 mg, By Mouth, 3 times a day, PRN as needed for muscle spasm, # 40 capsule, 1 Refills,Maintenance, 04/30/22 10:45:00 EDT, Capsule, [facility]/pharmacy #1130, Partial fill upon patient request [...] surgery Confirmed Active Primary language spoken is Maltese Confirmed Active Lobular carcinoma in situ (LCIS) , left breast, 2004 Confirmed 2004 Active Migraine Confirmed 1987 Active Overweight Confirmed Active History of ASCUS, HPV + Pap smear 12/23/16. Last Pap 11/25/17 negative with negative HPV Confirmed Active Social History Social History Type Response Smoking Status Never smoker entered on: 01/11/14 Sex Patient Care team information Personnel Name: Aly PALACIOS, Dylan Vasquez Address: Address: [address] [place] [address]
--- OUTSIDE RECORDS SUMMARY | 2024-05-30 08:57 | XMS_ITS | Continuity of Care Document ---
Author Organization [facility] Address [address] [place] [address]- Care Team Providers Care Tack Puller Name Role Phone Flako Benavides MD Primary Care Physician [facility] Date(s): 04/29/24 - 05/29/24 [facility] [address] [place], [place] [phone] Allergies, Adverse Reactions, Alerts Substance Reaction Severity Status Percocet GI upset, made me feel sick Active Immunizations Given and Recorded Vaccine Date Status Refusal Reason SARS-CoV-2 mRNA ([id number]-fktj-ebajg) vax 10/21/21 Given influenza virus vaccine, inactivated [...] tablet, 5 Refills, Maintenance, 12/17/23 8:47:00 EDT, [facility]/pharmacy #1130, Partial fill upon patient request if the prescription is for a schedule II opioid drug., 175.3, cm, 12/17/23 8:18:0... Start Date: 12/17/23 Status: Ordered ammonium lactate 12% topical lotion 1 application, Topically, 2 times a day, apply and rub in well, # 120 mL, 0 Refills, Maintenance, 05/10/24 15:21:00 EDT, Lotion, [facility]/pharmacy #1130, Partial fill upon patient request if the prescription is for a schedule II opioid drug., 1 application... Start Date: 05/10/24 Status: Ordered diclofenac 1% topical gel See Instructions, APPLY TOPICALLY 4 TIMES DAILY NEEDED FOR PAIN NOT TO EXCEED 32 GRAMS DAILY., #100 Gm, 1 Refills, Maintenance, 03/23/24 11:28:00 EDT, [facility]/pharmacy #1130, 25, APPLY TOPICALLY 4 TIMES DAILY NEEDED FOR PAIN NOT TO EXCEED 32 GRAMS... Start Date: 03/23/24 Status: Ordered FLUoxetine 40 mg oral capsule 1 capsule = 40 mg, By Mouth, Daily, Icelandic label please, # 30 capsule, 5 Refills, Maintenance, 11/03/23 10:11:00 EST, [facility]/pharmacy #1130, dose increase to 40mg 11/03/23, 175.3, cm, 10/01/23 17:00:00 EST, Height, 82.6, kg, 11/14/21 10:17:00 EST, Dry We... Start Date: 11/03/23 Status: Ordered tamoxifen 20 mg oral tablet 1 tablet = 20 mg, By Mouth, Daily, # 30 tablet, 0 Refills, Maintenance, 05/26/24 9:43:00 EDT, Tablet, Partial fill upon patient request if the prescription is for a schedule II opioid drug. Start Date: 05/26/24 Status: Ordered Problem List Condition Confirmation Course Effective Dates Status H ealth Status Informant History of subconjunctival hemorrhage Confirmed Active History of keloid of skin afer surgery Confirmed Active Primary language spoken is Icelandic Confirmed Active Lobular carcinoma in situ (LCIS) [...] Team Personnel Name: Flako Benavides MD Position: [facility] Resident Member Role: PCP Address: Address: [address] [place] [address]- Name: Homer Simon RN Position: [facility] SN RN Member Role: Primary Care Nurse Care Team Related Persons Name: PHOEBE SORTO Address: home [address] [place] [address] Name: YAMILKA WELLER Address: [place] [address] Name: KITA ZAMBRANO Address: home [address] [place] [address]
--- OUTSIDE RECORDS SUMMARY | 2024-05-30 08:57 | XMS_ITS | Continuity of Care Document ---
Author Organization [facility] Address [address] [place] [address]- Care Team Providers Care Communications Superintendent Name Role Phone Dylan Lu MD Primary Care Physician [place] [facility] [place] 06[place]16[place]22 - 07/16/22 [facility] [address] [place] [address]- [place] Allergies, Adverse Reactions, Alerts Substance Reaction Severity Status Percocet GI upset, made me feel sick Active Immunizations Given and Recorded Vaccine Date Status Refusal Reason SARS-CoV-2 mRNA ([id number]-[id number]-oeiwn) vax 10/21/21 Given influenza virus vaccine, inactivated [...] 01/21/22 8:34:00 EDT, Route to Pharmacy Electronically, [facility]/pharmacy #1130, Partial fill upon patient request if the prescription i... Start Date: 01/21/22 Status: Ordered diclofenac 1% topical gel See Instructions, APPLY TOPICALLY 4 TIMES DAILY NEEDED FOR PAIN NOT TO EXCEED 32 GRAMS DAILY., #100 Gm, 12 Refills, [facility] STORE [id number], 25, APPLY TOPICALLY 4 TIMES DAILY NEEDED [...] 20 mg, 1, capsule, By Mouth, Daily, [place] INSTRUCTIONS Please take every morning every day [...] Route to Pharmacy Electronically, [facility]/pharmacy #1130, Partial fill upon patient request if the prescription is for a schedule II... Start Date: 11/01/21 Stop Date: 12/31/21 Status: Ordered psyllium 2.4 g/3.7 g oral powder for reconstitution = 2.4 Gm, By Mouth, 2 times a day, PRN as needed for constipation, dissolve in 8 oz of fluid, # 30 pack/packet, 1 Refills, Maintenance, 06/12/22 20:32:00 EDT, REC Powder, [facility]/pharmacy #1130, Partial fill upon patient request [...] surgery Confirmed Active Primary language spoken is Arabic Confirmed Active Lobular carcinoma in situ (LCIS) [...] Name: Aly PALACIOS, Dylan Vasquez Address: Address: [address] [place] [address]
--- OUTSIDE RECORDS SUMMARY | 2024-05-30 08:57 | XMS_ITS | Continuity of Care Document ---
Author Organization [facility] Address [address] [place] [address]- Care Team Providers Care Datastage Developer Name Role Phone Dylan Lu MD S Primary Care Physician En[place] [facility] [place] Date(s): 06/05/21 - 07/05/[address] [address]- Attending Physician: Anali Brewer Admitting Physician: Admtr, Anali Referring Physician: Admtr, [...] Refills, Soft Stop, 05/09/21 8:28:00 EDT, Tablet, [facility], Partial fill upon pat... Start Date: [...]
--- OUTSIDE RECORDS SUMMARY | 2024-05-30 08:57 | XMS_ITS | Continuity of Care Document ---
Author Organization [facility] Adult Medicine Address [address] [place] [address]- Care Team Providers Care Weatherization Installer Name Role Phone Dylan Lu MD Primary Care Physician Encounter [facility] [place] Date(s): 06/17/22 - 08/29/22 [facility] Adult Medicine [address] [place], [place] [address] Attending Physician: Not on Staff, Attending MD Admitting Physician: Lisa PALACIOS, Yovani Kathleen Referring Physician: Dylan Lu MD Allergies, Adverse Reactions, Alerts Substance Reaction Severity Status Percocet GI upset, made me feel sick Active Immunizations Given and Recorded Vaccine Date Status Refusal Reason SARS-CoV-2 mRNA (tdcgnln-[id number]-phphr) vax 10/21/21 Given influenza virus vaccine, inactivated [...] 01/21/22 8:34:00 EDT, Route to Pharmacy Electronically, [facility]/pharmacy #1130, Partial fill upon patient request if the prescription i... Start Date: 01/21/22 Status: Ordered diclofenac 1% topical gel See Instructions, APPLY TOPICALLY 4 TIMES DAILY NEEDED FOR PAIN NOT TO EXCEED 32 GRAMS DAILY., #100 Gm, 12 Refills, [facility], 25, APPLY TOPICALLY 4 TIMES DAILY NEEDED [...] Details, Route to Pharmacy Electronically, [id number], 175.... Start Date: 07/23/22 Status: Ordered gabapentin 100 mg oral capsule 100 mg, 1, capsule, By Mouth, 3 times a day, # 90 capsule, Refills 1, Tot. Refills 1, Maintenance, 11/01/21 11:52:00 EST, Route to Pharmacy Electronically, [facility]/pharmacy #1130, Partial fill upon patient request [...] capsule, 1 Refills,Maintenance, 04/30/22 10:45:00 EDT, Capsule, [facility]/pharmacy #1130, Partial fill upon patient request if the prescription is for a schedule II opioid drug... Start Date: 04/30/22 Stop Date: 05/28/22 Status: Ordered tiZANidine 2 mg oral tablet 2 mg, 1, tablet, By Mouth, 3 times a day, # 15 tablet, Refills 0, Tot. Refills 0, Maintenance, 07/25/22 14:47:00 EST, Route to Pharmacy Electronically, [facility]/pharmacy #1130, Partial fill upon patient request [...] surgery Confirmed Active Primary language spoken is Sinhala Confirmed Active Lobular carcinoma in situ (LCIS) [...] Team Personnel Name: Dylan Lu MD Position: S Resident Member Role: PCP Address: Address: [address] [place] [address] [place] [address]- Name: Alfred SUMMERS, Homer Position: [facility] RN Member Role: Primary Care Nurse Care Team Related Persons Name: PHOEBE SORTO Address: home [address] [place] [address] Name: YAMILKA WELLER Address: [place] [address] Name: KITA ZAMBRANO Address: home [address] [place] [address]
--- OUTSIDE RECORDS SUMMARY | 2024-05-30 08:57 | XMS_ITS | Continuity of Care Document ---
Author Organization [facility] Dary sushila Address [address] [place] [address] [address] [place] [address]- Care Team Providers Care Judo Teacher Name Role Phone Aly PALACIOS, Dylan Vasquez Primary Care Physician En[place] [facility] [place] Date(s): 05/07/21 - 05/14/21 [facility] [address] [place], [place] [address] Attending Physician: Robin PALACIOS, William Baez Referring Physician: Dylan Lu MD Allergies, Adverse [...] 05/01/21 9:02:00 EDT, Route to Pharmacy Electronically, [facility]/pharmacy #[id number], Partial fill upon patient request [...] Refills, Soft Stop, 05/09/21 8:28:00 EDT, Tablet, [facility]/pharmacy #1130, Partial fill upon pat... Start Date: 05/09/21 Status: Ordered metronidazole topical 0.75% gel with applicator 1 applicator, Vaginally, Daily at bedtime, for 5 days, # 70 Gm, 0 Refills, Acute 05/15/21 14:57:00 EDT, 05/10/21 14:57:00 EDT, Gel, [facility]/pharmacy #1130, Partial fill upon patient request if the prescription is for a schedule II opioid drug., 1 applicat... Start Date: 05/10/21 Stop Date: 05/15/21 Status: Ordered Problem List Condition Effective Dates Status Health Status Inform ant H/O subconjunctival hemorrhage(Confirmed) Active H/O keloid of skin afer surgery(Confirmed) Active History of tubal ligation(Confirmed) 1999 Active History of appendectomy(Confirmed) 06/2016 Active H/O bilateral breast reducti on surgery(Confirmed) Active Lobular carcinoma in situ (L CIS) , left breast, 2004(Confirmed) 2004 Active Migraine(Confirmed) 1987 Active Overweight(Confirmed) Active Vital Signs Most recent to oldest [Reference Range]: 1 Height 175 cm (05/07/21 2:07 PM) Weight 78.0 kg (05/07/21 2:07 PM) Body Mass Index [18.5-24.99] 25.47 *H* (05/07/21 2:07 PM) Temperature [96.8-100.4 DegF] 97.0 DegF (05/07/21 2:07 PM) Temperature Route Temporal (05/07/21 2:07 PM) Weight Obtained Via Standing scale (05/07/21 2:07 PM) Social History Social History Type Response Smoking Status Never smoker entered on: 01/11/14 Sex
--- OUTSIDE RECORDS SUMMARY | 2024-05-30 08:57 | XMS_ITS | Continuity of Care Document ---
Author Organization [facility] Address [address] [place] [address]- Care Team Providers Care Stock Or Delivery Clerk Name Role Phone Flako Benavides MD Primary Care Physician [facility] Date[facility]s): 03/09[facility]23 - 04/08/23 [facility] [address] [place] [address] Attending Physician: Anali Brewer Admitting Physician: AdmAnali tolentino Referring Physician: Admtr, Anali Allergies, Adverse Reactions, Alerts Substance Reaction Severity Status Percocet GI upset, made me feel sick Active Immunizations Given and Recorded Vaccine Date Status Refusal Reason SARS-CoV-2 mRNA (ohiogzj-ybrv-sdcyd) vax 10/21/21 Given influenza virus vaccine, inactivated [...] DAILY., #100 Gm, 12 Refills, [facility], 25, APPLY TOPICALLY 4 TIMES DAILY NEEDED FOR PAIN NOT TO EXCEED 32 GRAMS DAILY., 175, cm, 01/21/22 7:55:00 EDT,... Start Date: 04/16/22 Status: Ordered meloxicam 15 mg oral tablet 1 tablet, By Mouth, Daily, INSTR:TAKE WITH FOOD., # 30 tablet, 0 Refills, Maintenance, 02/16/23 11:52:00 EDT, [id number], 175.3, cm, 01/07/23 11:19:00 EDT, Height, 82.6, [...] 06/12/22 20:32:00 EDT, REC Powder, [facility]/pharmacy #1130, Partial fill upon patient request if the prescription is for... Start Date: 06/12/22 Status: Ordered Tylenol 8 Hour 650 mg [...] surgery Confirmed Active Primary language spoken is Omani Confirmed Active Lobular carcinoma in situ (LCIS) [...] Team Personnel Name: Flako Benavides MD Position: [facility] Resident Member Role: PCP Address: Address: [address] [place] [address] Name: Alfred SUMMERS, Homer Position: [facility] SN RN Member Role: Primary Care Nurse Care Team Related Persons Name: PHOEBE SORTO Address: home [address] [place] [address] Name: YAMILKA WELLER Address: [place] [address] Name: KITA ZAMBRANO Address: home [address] [place] [address]
--- OUTSIDE RECORDS SUMMARY | 2024-05-30 08:57 | XMS_ITS | Continuity of Care Document ---
Author Organization [facility] Address [address] [place] [address]- Care Team Providers Care Graphic Artist Name Role Phone Flako Benavides MD Primary Care Physician [facility]): [facility]23 - 01/14/24 [facility] [address] [place], [place] [phone] Attending Physician: Not on Staff, Attending MD Allergies, Adverse Reactions, Alerts Substance Reaction Severity Status Percocet GI upset, made me feel sick Active Immunizations Given and Recorded Vaccine Date Status Refusal Reason SARS-CoV-2 mRNA (wctkcaa-nbdd-gavck) vax 10/21/21 Given influenza virus vaccine, inactivated [...] tablet, 5 Refills, Maintenance, 12/17/23 8:47:00 EDT, [facility]/pharmacy #[id number], Partial fill upon patient request if the prescription is for a schedule II opioid drug., 175.3, cm, 12/17/23 8:18:0... Start Date: 12/17/23 Status: Ordered diclofenac 1% topical gel See Instructions, APPLY TOPICALLY 4 TIMES DAILY NEEDED FOR PAIN NOT TO EXCEED 32 GRAMS DAILY., #100 Gm, 12 Refills, Maintenance, 12/17/23 8:47:00 EDT, [facility]/pharmacy #1130, 25, APPLY TOPICALLY 4 TIMES DAILY NEEDED FOR PAIN NOT TO EXCEED 32 GRAMS... Start Date: 12/17/23 Status: Ordered eszopiclone 1 mg oral tablet 1 tablet = 1 mg, By Mouth, Daily, TAKE IMMEDIATELY BEFORE BED. Andorran label please, # 30 tablet, 0Refills, Maintenance, 11/05/23 15:48:00 EST, [facility]/pharmacy #1130, D/C DOXEPIN PLEASE, 175.3, cm, 10/01/23 17:00:00 EST, Height, 82.6, kg, 11/14/21 10:17... Start Date: 11/05/23 Status: Ordered FLUoxetine 40 mg oral capsule 1 capsule = 40 mg, By Mouth, Daily, Andorran label please, # 30 capsule, 5 Refills, Maintenance, 11/03/23 10:11:00 EST, [facility]/pharmacy #1130, dose increase to 40mg 11/03/23, 175.3, cm, 10/01/23 17:00:00 EST, Height, 82.6, kg, 11/14/21 10:17:00 EST, Dry We... Start Date: 11/03/23 Status: Ordered meloxicam 15 mg oral tablet 1 tablet, By Mouth, Daily, INSTR:TAKE WITH FOOD. Andorran label please., # 30 tablet, 1 Refills, Maintenance, 08/26/23 9:15:00 EST, [facility]/pharmacy #1130, 175.3, cm, 08/18/23 9:52:00 [...] 20 mg oral tablet See Instructions, KHADIJAH EMMANUEL, # 90 tablet, 3 Refills, Maintenance, [...] surgery Confirmed Active Primary language spoken is Andorran Confirmed Active Lobular carcinoma in situ (LCIS) [...] S Resident Member Role: PCP Address: Address: [address] [place] [address]- Name: Alfred SUMMERS, Homer Position: [facility] APARICIO RN Member Role: Primary Care Nurse Care Team Related Persons Name: PHOEBE SORTO Address: home [address] [place] [address] Name: YAMILKA WELLER Address: [place] [address] Name: KITA ZAMBRANO Address: home [address] [place] [address]
--- OUTSIDE RECORDS SUMMARY | 2024-05-30 08:57 | XMS_ITS | Continuity of Care Document ---
Author Organization [facility] Address [address] [place] [address]- Care Team Providers Care Commodities Manager Name Role Phone Elvis PALACIOS, Elena Primary Care Physician [phone] [place] [facility] [place] 10/25/19 - 11/04/[address] [address]- [facility] Attending Physician: AdmAnali tolentino Admitting Physician: AdmAnali tolentino Referring Physician: Admtr, [...] 10/21/18 19:02:27 EST, Route to Pharmacy Electronically, [id number], [facility]/pharmacy #[id number] Start Date: 10/21/18 Status: Ordered Zantac [...]
--- OUTSIDE RECORDS SUMMARY | 2024-05-30 08:57 | XMS_ITS | Continuity of Care Document ---
Author Organization [facility] al Address [address] [place] [address]- Care Team Providers Care Supervisor Tank Storage Name Role Phone Dylan Lu MD Primary Care Physician Encounter [facility] Date(s): 11/13/22 - 12/13/[address] [address] Allergies, Adverse Reactions, Alerts Substance Reaction Severity Status Percocet GI upset, made me feel sick Active Immunizations Given and Recorded Vaccine Date Status Refusal Reason SARS-CoV-2 mRNA (rnfoqer-xvku-hjbxw) vax 10/21/21 Given influenza virus vaccine, inactivated [...] 8:34:00 EDT, Route to Pharmacy Electronically, [facility]/pharmacy #1130, Partial fill upon patient request if the prescription i... Start Date: 01/21/22 Status: Ordered diclofenac 1% topical gel See Instructions, APPLY TOPICALLY 4 TIMES DAILY NEEDED FOR PAIN NOT TO EXCEED 32 GRAMS DAILY., #100 Gm, 12 Refills, [id number], 25, APPLY TOPICALLY 4 TIMES DAILY NEEDED FOR PAIN NOT TO EXCEED 32 GRAMS DAILY., 175, cm, 01/21/22 7:55:00 EDT,... Start Date: 04/16/22 Status: Ordered Diflucan 150 mg oral tablet 1 tablet = 150 mg, By Mouth, Once, # 1 tablet, 0 Refills, Soft Stop, 12/06/21 12:35:00 EDT, [facility]/pharmacy #1130, Partial fill upon patient request if the prescription is for a schedule II opioid drug., 175, cm, 11/26/21 9:31:00 EDT, Height, 82.6, kg, 0... Start Date: 12/06/21 Status: Ordered FLUoxetine 20 mg oral tablet 1.5 tablet = 30 mg, By Mouth, Daily, Bangladeshi label please., # 45 tablet, 5 Refills, Maintenance, 09/24/22 8:25:00 EST, [facility]/pharmacy #1130, Dose increase to 30mg qd 09/24/22, 175.3, cm, 08/06/22 10:40:00 EST, Height, 82.6, kg, 11/14/21 10:17:00 EST, Dry... Start Date: 09/24/22 Status: Ordered gabapentin 100 mg oral capsule 100 mg, 1, capsule, By Mouth, 3 times a day, # 90 capsule, Refills 1, Tot. Refills 1, Maintenance, 11/01/21 11:52:00 EST, Route to Pharmacy Electronically, [facility]/pharmacy #1130, Partial fill upon patient request if the prescription is for a schedule II... Start Date: 11/01/21 Stop Date: 12/31/21 Status: Ordered hydrOXYzine hydrochloride 25 mg oral tablet 1 tablet = 25 mg, By Mouth, Daily at bedtime, Bangladeshi label please., # 30 tablet, 3 Refills, Maintenance, 09/24/22 8:26:00 EST, [facility]/pharmacy #1130, Partial fill upon patient request if the prescription is for a schedule II opioid drug., 175.3, cm, ... Start Date: 09/24/22 Status: Ordered meloxicam 15 mg oral tablet 1 tablet = 15 mg, By Mouth, Daily, for pain take with food Bangladeshi label please., # 30 tablet, 1 Refills, Maintenance, 10/23/22 16:20:00 EST, [facility]/pharmacy #1130, Partial fill upon patient request if the prescription is for a schedule II opioid drug.... Start Date: 10/23/22 Status: Ordered psyllium 2.4 g/3.7 g oral powder for reconstitution = 2.4 Gm, By Mouth, 2 times a day, PRN as needed for constipation, dissolve in 8 oz of fluid, # 30 pack/packet, 1 Refills, Maintenance, 06/12/22 20:32:00 EDT, REC Powder, [facility]/pharmacy #1130, Partial fill upon patient request if the prescription is for... Start Date: 06/12/22 Status: Ordered tiZANidine 2 mg oral capsule 1 capsule = 2 mg, By Mouth, 3 times a day, PRN as needed for muscle spasm, # 40 capsule, 1 Refills,Maintenance, 04/30/22 10:45:00 EDT, Capsule, [facility]/pharmacy #1130, Partial fill upon patient request if the prescription is for a schedule II opioid drug... Start Date: 04/30/22 Stop Date: 05/28/22 Status: Ordered tiZANidine 2 mg oral tablet 2 mg, 1, tablet, By Mouth, 3 times a day, # 15 tablet, Refills 0, Tot. Refills 0, Maintenance, 07/25/22 14:47:00 EST, Route to Pharmacy Electronically, [facility]/pharmacy #1130, Partial fill upon patient request if the prescription is for a schedule II opio... Start Date: 07/25/22 Stop Date: 07/30/22 Status: Ordered traZODone 50 mg oral tablet 50 mg, 1, tablet, By Mouth, Daily at bedtime, for sleep Bangladeshi label please, # 30 tablet, Refills 5, Tot. Refills 5, Maintenance, 11/13/22 16:13:00 EST, Route to Pharmacy Electronically, [facility]/pharmacy #1130, Partial fill upon patient request [...] surgery Confirmed Active Primary language spoken is Bangladeshi Confirmed Active Lobular carcinoma in situ (LCIS) [...] Team Personnel Name: Dylan Lu MD Position: [facility] Resident Member Role: PCP Address: Address: [address] [place] [id number]- Name: Alfred SUMMERS, Homer Position: [facility] SN RN Member Role: Primary Care Nurse Care Team Related Persons Name: PHOEBE SORTO Address: home [address] [place] [address] Name: YAMILKA WELLER Address: [place] [address] Name: KITA ZAMBRANO Address: home [address] [place] [address]
--- OUTSIDE RECORDS SUMMARY | 2024-05-30 08:57 | XMS_ITS | Continuity of Care Document ---
Author Organization [facility] Address [address] [place] [address]- Care Team Providers Care Passenger Relations Representative Name Role Phone Aly PALACIOS, Dylan S Primary Care Physician [facility]): 05/22/22 - 06/21/22 [facility] [address] [place] [address] Allergies, Adverse Reactions, Alerts Substance Reaction Severity Status Percocet GI upset, made me feel sick Active Immunizations Given and Recorded Vaccine Date Status Refusal Reason SARS-CoV-2 mRNA (bxbtrps-feqz-wtuwz) vax 10/21/21 Given influenza virus vaccine, inactivated [...] 01/21/22 8:34:00 EDT, Route to Pharmacy Electronically, [facility]/pharmacy #1130, Partial fill upon patient request if the prescription i... Start Date: 01/21/22 Status: Ordered diclofenac 1% topical gel See Instructions, APPLY TOPICALLY 4 TIMES DAILY NEEDED FOR PAIN NOT TO EXCEED 32 GRAMS DAILY., #100 Gm, 12 Refills, [id number], 25, APPLY TOPICALLY 4 TIMES DAILY NEEDED FOR PAIN NOT TO EXCEED 32 GRAMS DAILY., 175, cm, 01/21/22 7:55:00 EDT,... Start Date: 04/16/22 Status: Ordered Diflucan 150 mg oral tablet 1 tablet = 150 mg, By Mouth, Once, # 1 tablet, 0 Refills, Soft Stop, 12/06/21 12:35:00 EDT, [facility]/pharmacy #1130, Partial fill upon patient request if the prescription is for a schedule II opioid drug., 175, cm, 11/26/21 9:31:00 EDT, Height, 82.6, kg, 0... Start Date: 12/06/21 Status: Ordered FLUoxetine 20 mg oral capsule 20 mg, 1, capsule, By Mouth, Daily, [place] INSTRUCTIONS Please take every morning every day [...] 11/01/21 11:52:00 EST, Route to Pharmacy Electronically, [facility], [...] surgery Confirmed Active Primary language spoken is Armenian Confirmed Active Lobular carcinoma in situ (LCIS) [...] Name: Aly PALACIOS, Dylan Vasquez Address: Address: [address] [place] [address]
--- OUTSIDE RECORDS SUMMARY | 2024-05-30 08:57 | XMS_ITS | Continuity of Care Document ---
Author Organization [facility] Address [address] [place] [address]- Care Team Providers Care Traffic Administrator Name Role Phone Aly PALACIOS, Dylan S Primary Care Physician ( [phone] [facility] Date[facility]s): 10/23/21 - 12/06/21 [facility] [address] [place], [place] [address] Attending Physician: Not on Staff, Attending MD Allergies, Adverse Reactions, Alerts Substance Reaction Severity Status Percocet GI upset, made me feel sick Active Immunizations Given and Recorded Vaccine Date Status Refusal Reason SARS-CoV-2 mRNA ([id number]-ncew-sunzx) vax 10/21/21 Given influenza virus vaccine, inactivated [...] 32 GRAMS/DAY, # 100 Gm, 1 Refills, [facility] [id number], 30, APPLY TOPICALLY 4 TIMES A DAY CUANDO SEA NECESARIO FOR PAIN NOT TO EXCEED 32 GRAMS/DAY, 175, cm, ... Start Date: 11/25/21 Status: Ordered Diflucan 150 mg oral tablet 1 tablet = 150 mg, By Mouth, Once, # 1 tablet, 0 Refills, Soft Stop, 12/06/21 12:35:00 EDT, [facility]/pharmacy #1130, Partial fill upon patient request if the prescription is for a schedule II opioid drug., 175, cm, 11/26/21 9:31:00 EDT, Height, 82.6, kg, 0... Start Date: 12/06/21 Status: Ordered FLUoxetine 20 mg oral capsule 20 mg, 1, capsule, By Mouth, Daily, CITIZEN [place] INSTRUCTIONS Please take every morning every day [...] 11/01/21 11:52:00 EST, Route to Pharmacy Electronically, [facility]/pharmacy #1130, Partial fill upon patient [...] 0 Refills, Maintenance, 06/11/22 17:00:00 EDT, Bala, [facility]/pharmacy #1130, test date 06/12/22 . CA... [...] er surgery(Confirmed) Active Primary language spoken is Faroese(Confirmed) Active Lobular carcinoma in situ (L CIS) , left breast, 2004(Confirmed) 2004 Active Migraine(Confirmed) 1987 Active Overweight(Confirmed) Active History of ASCUS, HPV + Pap smear 12/23/16. Last Pap 11/25/17 negative with negative HPV(Confirmed) Active Social History Social History Type Response Smoking Status Never smoker entered on: 01/11/14 Sex
--- OUTSIDE RECORDS SUMMARY | 2024-05-30 08:57 | XMS_ITS | Continuity of Care Document ---
Author Organization [facility] Address [address] [place] [address]- Care Team Providers Care Trade Sales Assistant Name Role Phone Aly PALACIOS, Dylan S Primary Care Physician [facility] Date[facility]s): 02/04/22 - 03/06/22 [facility] [address] [place], [place] [address] Allergies, Adverse Reactions, Alerts Substance Reaction Severity Status Percocet GI upset, made me feel sick Active Immunizations Given and Recorded Vaccine Date Status Refusal Reason SARS-CoV-2 mRNA (nltxcqx-maoc-kpazq) vax 10/21/21 Given influenza virus vaccine, inactivated [...] EDT, Route to Pharmacy Electronically, [facility]/pharmacy #1130, Partial fill upon patient request if the prescription i... Start Date: 01/21/22 Status: Ordered diclofenac 1% topical gel See Instructions, APPLY TOPICALLY 4 TIMES A DAY CUANDO SEA NECESARIO FOR PAIN NOT TO EXCEED 32 GRAMS/DAY, # 100 Gm, 1 Refills, [facility] [id number], 30, APPLY TOPICALLY 4 TIMES A DAY CUANDO SEA NECESARIO FOR PAIN NOT TO EXCEED 32 GRAMS/DAY, 175, cm, ... Start Date: 01/22/22 Status: Ordered Diflucan 150 mg oral tablet 1 tablet = 150 mg, By Mouth, Once, # 1 tablet, 0 Refills, Soft Stop, 12/06/21 12:35:00 EDT, [facility]/pharmacy #1130, Partial fill upon patient request if the prescription is for a schedule II opioid drug., 175, cm, 11/26/21 9:31:00 EDT, Height, 82.6, kg, 0... Start Date: 12/06/21 Status: Ordered FLUoxetine 20 mg oral capsule 20 mg, 1, capsule, By Mouth, Daily, [place] INSTRUCTIONS Please take every morning every day [...] each, 0 Refills, Maintenance, 06/11/22 17:00:00 EDT, RECPowdelver, [facility]/pharmacy #1130, test date 06/12/22 . CA... [...] er surgery(Confirmed) Active Primary language spoken is Czech(Confirmed) Active Lobular carcinoma in situ (L CIS) , left breast, 2004(Confirmed) 2004 Active Migraine(Confirmed) 1987 Active Overweight(Confirmed) Active History of ASCUS, HPV + Pap smear 12/23/16. Last Pap 11/25/17 negative with negative HPV(Confirmed) Active Social History Social History Type Response Smoking Status Never smoker entered on: 01/11/14 Sex
--- OUTSIDE RECORDS SUMMARY | 2024-05-30 08:57 | XMS_ITS | Continuity of Care Document ---
Author Organization [facility] Address [address] [place] [address]- Care Team Providers Care Studio Producer Name Role Phone Dylan Lu MD Primary Care Physician [place] [facility] 11/23[place]21 - 12/23/21 [facility] [address] [place] [address]- Allergies, Adverse Reactions, Alerts Substance Reaction Severity Status Percocet GI upset, made me feel sick Active Immunizations Given and Recorded Vaccine Date Status Refusal Reason SARS-CoV-2 mRNA (oalqaha-skqa-ewlxx) vax 10/21/21 Given influenza virus vaccine, inactivated [...] 32 GRAMS/DAY, # 100 Gm, 1 Refills, [facility] , 30, APPLY TOPICALLY 4 TIMES A DAY CUANDO SEA NECESARIO FOR PAIN NOT TO EXCEED 32 GRAMS/DAY, 175, cm, ... Start Date: 11/25/21 Status: Ordered Diflucan 150 mg oral tablet 1 tablet = 150 mg, By Mouth, Once, # 1 tablet, 0 Refills, Soft Stop, 12/06/21 12:35:00 EDT, [facility]/pharmacy #1130, Partial fill upon patient request if the prescription is for a schedule II opioid drug., 175, cm, 11/26/21 9:31:00 EDT, Height, 82.6, kg, 0... Start Date: 12/06/21 Status: Ordered FLUoxetine 20 mg oral capsule 20 mg, 1, capsule, By Mouth, Daily, [place] INSTRUCTIONS Please take every morning every day [...] 11:52:00 EST, Route to Pharmacy Electronically, [facility]/pharmacy #1130, Partial fill upon patient request if [...] Refills, Maintenance, 06/11/22 17:00:00 EDT, Bala, [facility]/pharmacy #1130, test date 06/12/22 . CA... Start [...] er surgery(Confirmed) Active Primary language spoken is Telugu(Confirmed) Active Lobular carcinoma in situ (L CIS) , left breast, 2004(Confirmed) 2004 Active Migraine(Confirmed) 1987 Active Overweight(Confirmed) Active History of ASCUS, HPV + Pap smear 12/23/16. Last Pap 11/25/17 negative with negative HPV(Confirmed) Active Social History Social History Type Response Smoking Status Never smoker entered on: 01/11/14 Sex
--- OUTSIDE RECORDS SUMMARY | 2024-05-30 08:57 | XMS_ITS | Continuity of Care Document ---
Author Organization [facility] Address [address] [place] [address]- Care Team Providers Care Hose Finisher Name Role Phone Dylan Lu MD S Primary Care Physician ( [phone] Encounter [facility] Date(s): 11/17/22 - 12/17/[address] [address]- Allergies, Adverse Reactions, Alerts Substance Reaction Severity Status Percocet GI upset, made me feel sick Active Immunizations Given and Recorded Vaccine Date Status Refusal Reason SARS-CoV-2 mRNA ([id number]-[id number]) vax 10/21/21 Given influenza virus vaccine, inactivated [...] Tot. Refills 1, Maintenance, Pain , Moderate, 05/10/22 8:34:00 EDT, Route to Pharmacy Electronically, [facility]/pharmacy #1130, Partial fill upon patient request if the prescription i... Start Date: 01/21/22 Status: Ordered diclofenac 1% topical gel See Instructions, APPLY TOPICALLY 4 TIMES DAILY NEEDED FOR PAIN NOT TO EXCEED 32 GRAMS DAILY., #100 Gm, 12 Refills, [facility]239, 25, APPLY TOPICALLY 4 TIMES DAILY NEEDED FOR PAIN NOT TO EXCEED 32 GRAMS DAILY., 175, cm, 01/21/22 7:55:00 EDT,... Start Date: 04/16/22 Status: Ordered Diflucan 150 mg oral tablet 1 tablet = 150 mg, By Mouth, Once, # 1 tablet, 0 Refills, Soft Stop, 12/06/21 12:35:00 EDT, [facility]/pharmacy #1130, Partial fill upon patient request if the prescription is for a schedule II opioid drug., 175, cm, 11/26/21 9:31:00 EDT, Height, 82.6, kg, 0... Start Date: 12/06/21 Status: Ordered FLUoxetine 20 mg oral tablet 1.5 tablet = 30 mg, By Mouth, Daily, Cypriot label please., # 45 tablet, 5 Refills, Maintenance, 09/24/22 8:25:00 EST, [facility]/pharmacy #1130, Dose increase to 30mg qd [...] 25 mg, By Mouth, Daily at bedtime, Cypriot label please., # 30 tablet, 3 Refills, Maintenance, 09/24/22 8:26:00 EST, [facility]/pharmacy #1130, Partial fill upon patient request if the prescription is for a schedule II opioid drug., 175.3, cm, 11... Start Date: 09/24/22 Status: Ordered meloxicam 15 mg oral tablet 1 tablet = 15 mg, By Mouth, Daily, for pain take with food Cypriot label please., # 30 tablet, 1 Refills, Maintenance, 10/23/22 16:20:00 EST, [facility]/pharmacy #1130, Partial fill upon patient request if the prescription is for a schedule II opioid drug.... Start Date: 10/23/22 Status: Ordered psyllium 2.4 g/3.7 g oral powder for reconstitution = 2.4 Gm, By Mouth, 2 times a day, PRN as needed for constipation, dissolve in 8 oz of fluid, # 30 pack/packet, 1 Refills, Maintenance, 06/12/22 20:32:00 EDT, REC Powder, [facility]/pharmacy #1130, Partial fill upon patient request if the prescription is for... Start Date: 06/12/22 Status: Ordered tiZANidine 2 mg oral capsule 1 capsule = 2 mg, By Mouth, 3 times a day, PRN as needed for muscle spasm, # 40 capsule, 1 Refills,Maintenance, 04/30/22 10:45:00 EDT, Capsule, [facility]/pharmacy #1130, Partial fill upon patient request if the prescription is for a schedule II opioid drug... Start Date: 04/30/22 Stop Date: 05/28/22 Status: Ordered tiZANidine 2 mg oral tablet 2 mg, 1, tablet, By Mouth, 3 times a day, # 15 tablet, Refills 0, Tot. Refills 0, Maintenance, 07/25/22 14:47:00 EST, Route to Pharmacy Electronically, [facility]/pharmacy #1130, Partial fill upon patient request if the prescription is for a schedule II opio... Start Date: 07/25/22 Stop Date: 07/30/22 Status: Ordered traZODone 50 mg oral tablet 50 mg, 1, tablet, By Mouth, Daily at bedtime, for sleep Cypriot label please, # 30 tablet, Refills 5, Tot. Refills 5, Maintenance, 11/13/22 16:13:00 EST, [facility], [facility] [...] surgery Confirmed Active Primary language spoken is Cypriot Confirmed Active Lobular carcinoma in situ (LCIS) [...] Personnel Name: Aly PALACIOS, Dylan Vasquez [facility] Resident Member Role: PCP Address: Address: [address] [place] [address]- Name: Alfred SUMMERS, Homer Position[facility] RN Member Role: Primary Care Nurse Care Team Related Persons Name: PHOEBE SORTO Address: home [address] [place] [address] Name: YAMILKA WELLER Address: [place] [address] Name: KITA ZAMBRANO Address: home [address] [place] [address]
--- OUTSIDE RECORDS SUMMARY | 2024-05-30 08:57 | XMS_ITS | Continuity of Care Document ---
Author Organization [facility] Address [address] [place] [address]- Care Team Providers Care Records Management Analyst Name Role Phone Flako Benavides MD Primary Care Physician [facility]): [facility]23 - 12/03/23 [facility] [address] [place] [id number] Attending Physician: Not on Staff, Attending MD Allergies, Adverse Reactions, Alerts Substance Reaction Severity Status Percocet GI upset, made me feel sick Active Immunizations Given and Recorded Vaccine Date Status Refusal Reason SARS-CoV-2 mRNA (tzqthnp-ladz-vkloy) vax 10/21/21 Given influenza virus vaccine, inactivated [...] Gm, 12 Refills, Maintenance, 04/22/23 11:02:00 EDT, [id number], 25, APPLY TOPICALLY 4 TIMES DAILY NEEDED FOR PAIN NOT TO EXCEED 32 GRAMS DA... Start Date: 04/22/23 Status: Ordered eszopiclone 1 mg oral tablet 1 tablet = 1 mg, By Mouth, Daily, TAKE IMMEDIATELY BEFORE BED. Citizen Of [place] label please, # 30 tablet, 0Refills, Maintenance, 11/05/23 15:48:00 EST, [facility]/pharmacy #1130, D/C DOXEPIN PLEASE, 175.3, cm, 10/01/23 17:00:00 EST, Height, 82.6, kg, 11/14/21 10:17... Start Date: 11/05/23 Status: Ordered FLUoxetine 40 mg oral capsule 1 capsule = 40 mg, By Mouth, Daily, Citizen Of [place] label please, # 30 capsule, 5 Refills, Maintenance, 11/03/23 10:11:00 EST, [facility]/pharmacy #1130, dose increase to 40mg 11/03/23, 175.3, cm, 10/01/23 17:00:00 EST, Height, 82.6, kg, 11/14/21 10:17:00 EST, Dry We... Start Date: 11/03/23 Status: Ordered meloxicam 15 mg oral tablet 1 tablet, By Mouth, Daily, INSTR:TAKE WITH FOOD. Citizen Of [place] label please., # 30 tablet, 1 Refills, Maintenance, 08/26/23 9:15:00 EST, [facility]/pharmacy #1130, 175.3, cm, 08/18/23 9:52:00 EST, Height, [...] 20 mg oral tablet See Instructions, KHADIJAH MCCLOUDA HARSHAD EMMANUEL, # 90 tablet, 3 Refills, Maintenance, [...] surgery Confirmed Active Primary language spoken is Citizen Of [place] Confirmed Active Lobular carcinoma in situ (LCIS) [...] Team Personnel Name: Flako Benavides MD Position: [facility] Resident Member Role: PCP Address: Address: [address] [place] [phone]- Name: Homer Simon RN Position: [facility] RN Member Role: Primary Care Nurse Care Team Related Persons Name: PHOEBE SORTO Address: home [address] [place] [address] Name: YAMILKA WELLER Address: [place] [address] Name: KITA ZAMBRANO Address: home [address] [place] [address]
--- OUTSIDE RECORDS SUMMARY | 2024-05-30 08:57 | XMS_ITS | Continuity of Care Document ---
Author Organization [facility] Address [address] [place] [address]- Care Team Providers Care Survey Superintendent Name Role Phone Flako Benavides MD Primary Care Physician [phone] [facility]counter [facility]): 11/[facility]/23 - 12/04/23 [facility] [address] [place] [address]- Allergies, Adverse Reactions, Alerts Substance Reaction Severity Status Percocet GI upset, made me feel sick Active Immunizations Given and Recorded Vaccine Date Status Refusal Reason SARS-CoV-2 mRNA (fmdxjpk-lmzt-gjirs) vax 10/21/21 Given influenza virus vaccine, inactivated [...] Gm, 12 Refills, Maintenance, 04/22/23 11:02:00 EDT, [id number], 25, APPLY TOPICALLY 4 TIMES DAILY NEEDED FOR PAIN NOT TO EXCEED 32 GRAMS DA... Start Date: 04/22/23 Status: Ordered eszopiclone 1 mg oral tablet 1 tablet = 1 mg, By Mouth, Daily, TAKE IMMEDIATELY BEFORE BED. Marshallese label please, # 30 tablet, 0Refills, Maintenance, 11/05/23 15:48:00 EST, [facility]/pharmacy #1130, D/C DOXEPIN PLEASE, 175.3, cm, 10/01/23 17:00:00 EST, Height, 82.6, kg, 11/14/21 10:17... Start Date: 11/05/23 Status: Ordered FLUoxetine 40 mg oral capsule 1 capsule = 40 mg, By Mouth, Daily, Marshallese label please, # 30 capsule, 5 Refills, Maintenance, 11/03/23 10:11:00 EST, [facility]/pharmacy #1130, dose increase to 40mg 11/03/23, 175.3, cm, 10/01/23 17:00:00 EST, Height, 82.6, kg, 11/14/21 10:17:00 EST, Dry We... Start Date: 11/03/23 Status: Ordered meloxicam 15 mg oral tablet 1 tablet, By Mouth, Daily, INSTR:TAKE WITH FOOD. Marshallese label please., # 30 tablet, 1 Refills, Maintenance, 08/26/23 9:15:00 EST, [facility]/pharmacy #1130, 175.3, cm, 08/18/23 9:52:00 EST, Height, [...] mg oral tablet See Instructions, KHADIJAH MCCLOUDA TOS LOS EMMANUEL, # 90 tablet, 3 Refills, [...] surgery Confirmed Active Primary language spoken is Marshallese Confirmed Active Lobular carcinoma in situ (LCIS) [...] Team Personnel Name: Flako Benavides MD Position: [facility] Resident Member Role: PCP Address: Address: [address] [place] [phone]- Name: Homer Simon RN Position: [facility] RN Member Role: Primary Care Nurse Care Team Related Persons Name: PHOEBE SORTO Address: home [address] [place] [address] Name: YAMILKA WELLER Address: [place] [address] Name: KITA ZAMBRANO Address: home [address] [place] [address]
--- OUTSIDE RECORDS SUMMARY | 2024-05-30 08:57 | XMS_ITS | Continuity of Care Document ---
Author Organization [facility] Dary sushila Address [address] [place] [address] [address] [place] [address]- Care Team Providers Care Crewman Armoured Personnel Carrier M113 Name Role Phone Elena Leal MD Primary Care Physician [phone] Encounter [facility] Date(s): 11/10/19 - 01/22/20 [facility] [address] [place] [address]- [facility] Attending Physician: William Kelly MD Admitting Physician: William Kelly MD Referring Physician: Elena Leal MD Allergies, Adverse Reactions, Alerts Substance Reaction [...] 10/21/18 19:02:27 EST, Route to Pharmacy Electronically, [id number], [facility]/pharmacy #1130 Start Date: 10/21/18 Status: Ordered Zantac [...]
--- OUTSIDE RECORDS SUMMARY | 2024-05-30 08:57 | XMS_ITS | Continuity of Care Document ---
Author Organization [facility] Address [address] [place] [address]- Care Team Providers Care Forming Department End Finder Name Role Phone Dylan Lu MD S Primary Care Physician ( [phone] [facility]): 11/19/22 - 02/05/23 [facility] [address] [place] [address]- Attending Physician: Not on Staff, Attending MD Allergies, Adverse Reactions, Alerts Substance Reaction Severity Status Percocet GI upset, made me feel sick Active Immunizations Given and Recorded Vaccine Date Status Refusal Reason SARS-CoV-2 mRNA (iiejbkv-bnau-ocnud) vax 10/21/21 Given influenza virus vaccine, inactivated [...] 8:34:00 EDT, Route to Pharmacy Electronically, [facility]/pharmacy #1130, Partial fill upon patient request if the prescription i... Start Date: 01/21/22 Status: Ordered baclofen 10 mg oral tablet 10 mg, 1, tablet, By Mouth, Daily at bedtime, for left shoulder pain, # 14 tablet, Refills 0, Tot. Refills 0, Maintenance, 01/07/23 12:06:00 EDT, Route to Pharmacy Electronically, [facility]/pharmacy #1130,Partial fill upon patient request if the prescripti... Start Date: 01/07/23 Stop Date: 01/21/23 Status: Ordered diclofenac 1% topical gel See Instructions, APPLY TOPICALLY 4 TIMES DAILY NEEDED FOR PAIN NOT TO EXCEED 32 GRAMS DAILY., #100 Gm, 12 Refills, [id number], 25, APPLY TOPICALLY 4 TIMES DAILY NEEDED FOR PAIN NOT TO EXCEED 32 GRAMS DAILY., 175, cm, 01/21/22 7:55:00 EDT,... Start Date: 04/16/22 Status: Ordered Diflucan 150 mg oral tablet 1 tablet = 150 mg, By Mouth, Once, # 1 tablet, 0 Refills, Soft Stop, 12/06/21 12:35:00 EDT, [facility]/pharmacy #1130, Partial fill upon patient request if the prescription is for a schedule II opioid drug., 175, cm, 11/26/21 9:31:00 EDT, Height, 82.6, kg, 0... Start Date: 12/06/21 Status: Ordered FLUoxetine 20 mg oral tablet 1.5 tablet = 30 mg, By Mouth, Daily, South Korean label please., # 45 tablet, 5 Refills, Maintenance, 09/24/22 8:25:00 EST, [facility]/pharmacy #1130, Dose increase to 30mg qd 09/24/22, 175.3, cm, 08/06/22 10:40:00 EST, Height, 82.6, kg, 11/14/21 10:17:00 EST, Dry... Start Date: 09/24/22 Status: Ordered gabapentin 100 mg oral capsule 100 mg, 1, capsule, By Mouth, 3 times a day, # 90 capsule, Refills 1, Tot. Refills 1, Maintenance, 11/01/21 11:52:00 EST, Route to Pharmacy Electronically, [facility]/pharmacy #1130, Partial fill upon patient request if the prescription is for a schedule II... Start Date: 11/01/21 Stop Date: 12/31/21 Status: Ordered hydrOXYzine hydrochloride 25 mg oral tablet See Instructions, MADELINEE ANNAMARIE TABLETA POR VIA ORAL TODOS LOS EMMANUEL AL ACOSTARSE, # 30 tablet, 3 Refills, Maintenance, 01/19/23 10:54:00 EDT, [id number], 175.3, cm, 01/07/23 11:19:00 EDT, Height, 82.6, kg, 11/14/21 10:17:00 EST, Dry Weight Start Date: 01/19/23 Status: Ordered meloxicam 15 mg oral tablet 1 tablet, By Mouth, Daily, TAKE WITH FOOD., # 30 tablet, 1 Refills, Maintenance, 12/21/22 19:53:00 EDT, [facility]/pharmacy #1130, 175.3, cm, 11/20/22 9:27:00 EST, Height, 82.6, kg, 11/14/21 10:17:00 EST, Dry Weight Start Date: 12/21/22 Status: Ordered psyllium 2.4 g/3.7 g oral powder for reconstitution = 2.4 Gm, By Mouth, 2 times a day, PRN as needed for constipation, dissolve in 8 oz of fluid, # 30 pack/packet, 1 Refills, Maintenance, 06/12/22 20:32:00 EDT, REC Powder, [facility]/pharmacy #1130, Partial fill upon patient request if the prescription is for... Start Date: 06/12/22 Status: Ordered tiZANidine 2 mg oral capsule 1 capsule = 2 mg, By Mouth, 3 times a day, PRN as needed for muscle spasm, # 40 capsule, 1 Refills,Maintenance, 04/30/22 10:45:00 EDT, Capsule, [facility]/pharmacy #1130, Partial fill upon patient request if the prescription is for a schedule II opioid drug... Start Date: 04/30/22 Stop Date: 05/28/22 Status: Ordered tiZANidine 2 mg oral tablet 2 mg, 1, tablet, By Mouth, 3 times a day, # 15 tablet, Refills 0, Tot. Refills 0, Maintenance, 07/25/22 14:47:00 EST, Route to Pharmacy Electronically, [facility]/pharmacy #1130, Partial fill upon patient request if the prescription is for a schedule II opio... Start Date: 07/25/22 Stop Date: 07/30/22 Status: Ordered traZODone 50 mg oral tablet 50 mg, 1, tablet, By Mouth, Daily at bedtime, for sleep South [place] label please, # 30 tablet, Refills 5, Tot. Refills 5, Maintenance, 11/13/22 16:13:00 EST, Route to Pharmacy Electronically, [facility]/pharmacy #1130, Partial fill upon patient request [...] surgery Confirmed Active Primary language spoken is [place] Korean Confirmed Active Lobular carcinoma in situ (LCIS) [...] Team Personnel Name: Dylan Lu MD Position: [facility] Resident Member Role: PCP Address: Address: [address] [place] [phone]- Name: Homer Simon RN Position: [facility] SN RN Member Role: Primary Care Nurse Care Team Related Persons Name: PHOEBE SORTO Address: home [address] [place] [address] Name: YAMILKA WELLER Address: [place] [address] Name: KITA ZAMBRANO Address: home [address] [place] [address]
--- OUTSIDE RECORDS SUMMARY | 2024-05-30 08:57 | XMS_ITS | Continuity of Care Document ---
Author Organization [facility] Address [address] [place] [address]- Care Team Providers Care Lead Injection Mold Technician Name Role Phone Elvis PALACIOS, Elena Primary Care Physician Encounter [facility] Date(s): 09/15/19 - 10/25/[address] [address]- [facility] Discharge Disposition: A-D/C Home Attending Physician: Oz Leal MD Admitting Physician: Oz Leal MD Referring Physician: Oz Leal MD Allergies, Adverse Reactions, Alerts Substance [...] 10/21/18 19:02:27 EST, Route to Pharmacy Electronically, [id number], [facility]/pharmacy #1130 Start Date: 10/21/18 Status: Ordered [...]
--- OUTSIDE RECORDS SUMMARY | 2024-05-30 08:57 | XMS_ITS | Continuity of Care Document ---
Author Organization [facility] Dary sushila Address [address] [place] [address] [address] [place] [address]- Care Team Providers Care Machine Heel Builder Name Role Phone Aly PALACIOS, Dylan Vasquez Primary Care Physician [facility] Date[facility]s): 08/15/21 - 09/14/21 [facility] [address] [place], [place] [address] Allergies, Adverse Reactions, Alerts Substance Reaction Severity [...] er surgery(Confirmed) Active Primary language spoken is [place]inean(Confirmed) Active Lobular carcinoma in situ (L CIS) , left breast, 2004(Confirmed) 2004 Active Migraine(Confirmed) 1987 Active Overweight(Confirmed) Active History of ASCUS, HPV + Pap smear 12/23/16. Last Pap 11/25/17 negative with negative HPV(Confirmed) Active Social History Social History Type Response Smoking Status Never smoker entered on: 01/11/14 Sex
--- OUTSIDE RECORDS SUMMARY | 2024-05-30 08:57 | XMS_ITS | Continuity of Care Document ---
Author Organization [facility] Address [address] [place] [address]- Care Team Providers Care Plug Drill Operator Name Role Phone Flako Benavides MD Primary Care Physician [facility] Date[facility]s): 02/12/23 - 03/14/23 [facility] [address] [place] [id number] Allergies, Adverse Reactions, Alerts Substance Reaction Severity Status Percocet GI upset, made me feel sick Active Immunizations Given and Recorded Vaccine Date Status Refusal Reason SARS-CoV-2 mRNA (xdszwhe-ndoe-ciosr) vax 10/21/21 Given influenza virus vaccine, inactivated [...] 32 GRAMS DAILY., #100 Gm, 12 Refills, [facility] , 25, APPLY TOPICALLY 4 TIMES DAILY NEEDED FOR PAIN NOT TO EXCEED 32 GRAMS DAILY., 175, cm, 01/21/22 7:55:00 EDT,... Start Date: 04/16/22 Status: Ordered meloxicam 15 mg oral tablet 1 tablet, By Mouth, Daily, INSTR:TAKE WITH FOOD., # 30 tablet, 0 Refills, Maintenance, 02/16/23 11:52:00 EDT, [id number], 175.3, cm, 01/07/23 11:19:00 EDT, Height, 82.6, [...] Refills, Maintenance, 06/12/22 20:32:00 EDT, REC Powder, [facility]/pharmacy #1130, Partial fill upon patient request [...] surgery Confirmed Active Primary language spoken is Nicaraguan Confirmed Active Lobular carcinoma in situ (LCIS) , left breast, 2004 Confirmed 2004 Active Migraine Confirmed 1987 Active Overweight Confirmed Active History of ASCUS, HPV + Pap smear 4/11/17. Last Pap 11/25/17 negative with negative HPV Confirmed Active Social History Social History Type Response Smoking Status Never smoker entered on: 01/11/14 Sex Patient Care team information Care Team Personnel Name: Flako Benavides MD Position: [facility] Resident Member Role: PCP Address: Address: [address] [place] [address] Name: Homer Simon RN Position: [facility] SN RN Member Role: Primary Care Nurse Care Team Related Persons Name: PHOEBE SORTO Address: home [address] [place] [address] Name: YAMILKA WELLER Address: [place] [address] Name: KITA ZAMBRANO Address: home [address] [place] [address]
--- NOTE | 2024-05-30 08:58 | ED_ITS ---
HPI - General Adult General Chief complaint: General Medical Stated complaint: Needle Stuck in R Arm Time Seen by Provider: 05/30/24 08:44 Source: patient Mode of arrival: ambulatory Limitations: no limitations History of Present Illness HPI narrative: Patient presented to the emergency department stating that she has right arm pain she was told that she has a needle in the arm she does not know if his in the arm or forearm she denies any IV drug use Onset (ago): day(s) (2) Location: right and upper extremity Radiation: non-radiation Severity: moderate Quality: burning Pain Consistency: constant Relieving factors: none Exacerbating factors: none Associated symptoms: denies other symptoms Related Data Previous Rx's ?Medication ?Instructions ?Recorded cephalexin 500 mg capsule 500 mg PO Q8H #15 caps 05/30/24 naproxen 500 mg tablet (Naprosyn) 500 mg PO BID PRN PAIN #20 tabs 05/30/24 Allergies Allergy/AdvReac Type Severity Reaction Status Date / Time acetaminophen [From Percocet] AdvReac Anxiety Verified 05/30/24 08:38 oxycodone [From Percocet] AdvReac Anxiety Verified 05/30/24 08:38 Review of Systems ENT: Reports system reviewed and no additional complaints, except as documented Cardiovascular: Cardiovascular: Reports no additional cardiovascular complaints PMFSH Past Medical History [facility] Narrative: denies Source: unable to obtain Social History Social History Advance Directives: No Advance Directives Information Provided: Yes Do you have a plan to hurt others: No Plan Physical Exam ED Vital Signs: Vital Signs - 24 hr 05/30/24 08:34 05/30/24 09:43 Temperature 96.9 F 96.9 F Pulse Rate 69 69 Respiratory Rate 20 20 Blood Pressure 142/87 H 142/87 H Pulse Oximetry 100 100 Oxygen Delivery Method Room Air Room Air BMI result Body Mass Index 26.3 She looks well she is not toxic Const General: cooperative Nutritional Appearance: well nourished Orientation/consciousness: patient oriented x3 Limitations: no limitations HENMT Head: Yes normal to inspection General nose exam: Normal external nose present Mouth: Normal oral and palatal mucosa present Throat: Yes posterior oropharynx normal Neck Neck: Yes normal visual inspection and Yes full ROM Chest Chest palpation & inspection: normal inspection of the chest Resp Effort & Inspection: normal respiratory effort Auscultation: clear to auscultation bilaterally Cardio Jugular venous distension: no JVD Rate: regular rate Rhythm: regular rhythm GI Inspection: Yes normal to inspection Palpation (GI): Soft to palpation, not firm and nontender Auscultation: normal bowel sounds Neuro General: patient oriented x3 Extrem Other: No swelling noted no redness noted full ROM Course Reevaluation(s) Reevaluation #1: Patient presented with metallic foreign body in the right arm she states that she does not do drugs. The plan is to discharge the patient home on antibiotic a follow-up with Ortho upper extremity specialist she is very comfortable with that Medical Decision Making Medical Decision Making MDM Narrative: Patient presented with possible foreign body in the upper extremity we will go ahead and check an x-ray Differential Diagnosis Differential Diagnoses: The differential diagnosis associated with the presentation includes Foreign body/sprain on the muscle Admission/Observation Consideration of admission/observation: Escalation of care including admission/observation considered Independent Interpretation I performed an independent interpretation of an: Plain X-Ray Interpretation: I personally reviewed interpreted the x-ray as foreign body metallic in the right arm Radiology Impression Discussion of test interpretation with radiology: I have reviewed the radiologist's reading. Radiologist Impression: CLINICAL INFORMATION: Possible foreign body COMPARISON: None available. TECHNIQUE: AP and lateral views of the right humerus. FINDINGS: A linear 1 cm long metallic foreign body is present in the lateral soft tissues of the distal upper arm. Appearances are that of a needle. The bones and soft tissues are otherwise unremarkable. No fracture. Imaged portions of the shoulder and elbow are unremarkable. XR/XR humerus RT IMPRESSION: 1 cm long metallic foreign body in the lateral soft tissues of the distal upper arm. Electronically signed by: Bola Mcmanus MD 05/30/2024 09:37 AM EDT Dictated By: Bola Mcmanus MD Signed By: <Electronically signed by Bola Mcmanus MD in OV> Discharge Plan Discharge Clinical Impression: Foreign body of upper arm Qualifiers: Encounter type: initial encounter Laterality: right Qualified Code(s): S40.851A - Superficial foreign body of right upper arm, initial encounter Patient Disposition: Home, Self-Care Additional Instructions: Follow-up with the orthopedist specializing in upper extremity Dr. Barnett call and make an appointment take antibiotic pain medicine as needed Prescriptions: New cephalexin 500 mg capsule 500 mg PO Q8H Qty: 15 0RF naproxen [Naprosyn] 500 mg tablet 500 mg PO BID PRN (Reason: PAIN) Qty: 20 0RF Referrals: Lakia Barnett MD [Physician] - 3 days Interventions: ED Discharge Assessment Last Done: 05/30/24 09:43 Discharge Date/Time: 05/30/24 09:44 Print Language: St Helenian
--- OUTSIDE RECORDS SUMMARY | 2024-05-30 08:58 | XMS_ITS | Continuity of Care Document ---
Author Organization [facility] Address [address] [place] [address]- Care Team Providers Care Life Claims Examiner Name Role Phone Dylan Lu MD Primary Care Physician [facility] Date[facility]s): 05/13/21 - 06/12/21 [facility] [address] [place] [address]- Allergies, Adverse Reactions, Alerts Substance Reaction Severity [...] Refills, Soft Stop, 05/09/21 8:28:00 EDT, Tablet, [facility]/pharmacy #1130, Partial fill upon pat... Start Date: 05/09/21 Status: Ordered omeprazole 20 mg oral delayed release tablet 1 tablet = 20 mg, By Mouth, Daily, # 30 tablet, 0 Refills, Maintenance, 05/24/21 10:01:00 EDT, CR Tablet, [facility]/pharmacy #1130, Label in Marshallese. D/c Famotidine., 175, cm, 05/09/21 8:11:00 EDT, [...]
--- OUTSIDE RECORDS SUMMARY | 2024-05-30 08:58 | XMS_ITS | Continuity of Care Document ---
Author Organization [facility] Address [address] [place] [address]- Care Team Providers Care Aviation Survival Technician Name Role Phone Dylan Lu MD Primary Care Physician Encounter [facility] Date(s): 11/06/20 - 12/06/20 [facility] [address] [place] [address]- Allergies, Adverse Reactions, Alerts Substance Reaction Severity [...] 9:00:00 EDT, 11/11/20 15:33:00 EST, Tablet, [id number], Partial fill upon patient request if the [...]
--- OUTSIDE RECORDS SUMMARY | 2024-05-30 08:58 | XMS_ITS | Continuity of Care Document ---
Author Organization [facility] Address [address] [place] [address]- Care Team Providers Care Resolution Analyst Name Role Phone Dylan Lu MD Primary Care Physician ( [phone] Encounter [facility] Date(s): 07/31/21 - 07/31/[address] [address] Discharge Disposition: A-D/C Home Attending Physician: William Kelly MD Admitting Physician: William Kelly MD Referring Physician: William Kelly MD Allergies, Adverse Reactions, [...] drug., 17... Start Date: 05/01/21 Status: Ordered ibuprofen 600 mg oral tablet 600 mg, 1, tablet, By Mouth, Every 6 hours, for 14 days, # 56 tablet, Refills 0, Tot. Refills 0, Acute 08/14/21 11:46:00 EST, 07/31/21 11:46:00 EST, Route to [facility]acy Electronically, [facility], Partial fill upon patient request if the prescri... Start Date: 07/31/21 Stop Date: 08/14/21 Status: Ordered MELATONIN 5 MG TABLET MELATONIN 5 MG TABLET, See Instructions, # 30 tablet, 3 Refills, TOME ANNAMARIE TABLETA POR VIA ORAL A DIARIO AL ACOSTARSE CUANDO SEA NECESARIO FOR INSOMNIA, 175, cm, 06/05/21 10:36:00 EDT, Height Start Date: 06/14/21 Status: Ordered oxyCODONE 5 mg oral tablet 5 mg, 1, tablet, By Mouth, Every 6 hours, PRN, # 20 tablet, Refills 0, Tot. Refills 0, Acute 08/08/21 11:47:00 EST, for pain, 07/31/21 11:46:00 EST, Route to Pharmacy Electronically, [facility], Partial fill upon patient request if the prescri... Start Date: 07/31/21 Stop Date: 08/08/21 Status: Ordered OxyCODONE IR Tablet 5 mg, Tablet, By Mouth, Every 4 hours, in PACU ONLY, if patient can tolerate PO, PRN for Pain , Mild, Routine, 07/31/21 9:00:00 EST Start Date: 07/31/21 Stop Date: 08/07/21 Status: Ordered Tylenol Extra Strength 500 mg oral tablet 1 tablet = 500 mg, By Mouth, Every 6 hours, PRN as needed for pain, for 14 days, # 50 tablet, 0 Refills, Acute 08/14/21 11:46:00 EST, 07/31/21 11:46:00 EST, Tablet, [facility], Partial fill upon patient request if the prescription is for a antione... Start Date: 07/31/21 Stop Date: 08/14/21 Status: Ordered Problem List Condition Effective Dates Status Health Status Inform ant History of subconjunctival hemorrhage(Confirmed) Active History of keloid of skin af er surgery(Confirmed) Active Primary language spoken is Serbian(Confirmed) Active Lobular carcinoma in situ (L CIS) , left breast, 2005(Confirmed) 2004 Active Migraine(Confirmed) 1987 Active Overweight(Confirmed) Active History of ASCUS, HPV + Pap smear 12/23/16. Last Pap 11/25/17 negative with negative HPV(Confirmed) Active Vital Signs Most recent to oldest [Reference Range]: 1 2 3 Height 175 cm (07/31/21 6:43 AM) 175 cm (07/26/21 3:01 PM) Weight 79.6 kg (07/31/21 6:43 AM) 80.45 kg (07/26/21 3:01 PM) Oxygen Saturation [94-100 %] 97 % (07/31/21 1:15 PM) 99 % (07/31/21 1:00 PM) 100 % (07/31/21 12:45 PM) Pulse Rate [55-90 bpm] 90 bpm (07/31/21 6:43 AM) Body Mass Index [18.5-24.99] 25.99 *H* (07/31/21 6:43 AM) 26.27 *H* (07/26/21 3:01 PM) Blood Pressure [90-138/55-84 mm Hg] 117/69mm Hg (07/31/21 1:15 PM) 119/77mm Hg (07/31/21 1:00 PM) 113/66mm Hg (07/31/21 12:45 PM) Respiratory Rate [16-30 br/min] 16 br/min (07/31/21 1:43 PM) 16 br/min (07/31/21 1:15 PM) 10 br/min *L* (07/31/21 1:00 PM) Temperature [96.8-100.4 DegF] 97.2 DegF (07/31/21 1:15 PM) 97.2 DegF (07/31/21 11:49 AM) 97.3 DegF (07/31/21 6:43 AM) Liters per Minute 5 L/min (07/31/21 11:49 AM) Mode of Delivery (Oxygen) Room air (07/31/21 1:15 PM) Room air (07/31/21 1:00 PM) Simple face mask (07/31/21 11:49 AM) Blood pressure sites Arm, left (07/31/21 11:49 AM) Arm, left (07/31/21 6:43 AM) Temperature Route Temporal (07/31/21 1:15 PM) Temporal (07/31/21 11:49 AM) Temporal (07/31/21 6:43 AM) Dry Weight 79.6 kg (07/31/21 6:43 AM) 80.45 kg (07/26/21 3:01 PM) Weight Obtained Via Standing scale (07/31/21 6:43 AM) Patient/family stated (07/26/21 3:01 PM) Dry Weight Obtained Via Standing scale (07/31/21 6:43 AM) Patient/family stated (07/26/21 3:01 PM) Social History Social History Type Response Smoking Status Never smoker entered on: 01/11/14 Sex
--- OUTSIDE RECORDS SUMMARY | 2024-05-30 08:58 | XMS_ITS | Continuity of Care Document ---
Author Organization [facility] Address [address] [place] [address]- Care Team Providers Care A And P Technician Name Role Phone Flako Benavides MD Primary Care Physician Encounter [facility] Date(s): 03/23/24 - 04/23/24 [facility] [address] [place], [place] [phone] Attending Physician: Yovani Gonzalez MD Admitting Physician: Yovani Gonzalez MD Allergies, Adverse Reactions, Alerts Substance Reaction Severity Status Percocet GI upset, made me feel sick Active Immunizations Given and Recorded Vaccine Date Status Refusal Reason SARS-CoV-2 mRNA (pplykph-pwoc-kphqs) vax 10/21/21 Given influenza virus vaccine, inactivated [...] tablet, 5 Refills, Maintenance, 12/17/23 8:47:00 EDT, [facility]/pharmacy #1130, Partial fill upon patient request if the prescription is for a schedule II opioid drug., 175.3, cm, 12/17/23 8:18:0... Start Date: 12/17/23 Status: Ordered diclofenac 1% topical gel See Instructions, APPLY TOPICALLY 4 TIMES DAILY NEEDED FOR PAIN NOT TO EXCEED 32 GRAMS DAILY., #100 Gm, 1 Refills, Maintenance, 03/23/24 11:28:00 EDT, [facility], 25, APPLY TOPICALLY 4 TIMES DAILY NEEDED FOR PAIN NOT TO EXCEED 32 GRAMS... Start Date: 03/23/24 Status: Ordered eszopiclone 1 mg oral tablet 1 tablet = 1 mg, By Mouth, Daily, TAKE IMMEDIATELY BEFORE BED. Dutch label please, # 30 tablet, 0Refills, Maintenance, 11/05/23 15:48:00 EST, [facility], D/C DOXEPIN PLEASE, 175.3, cm, 10/01/23 17:00:00 EST, Height, 82.6, kg, 11/14/21 10:17... Start Date: 11/05/23 Status: Ordered FLUoxetine 40 mg oral capsule 1 capsule = 40 mg, By Mouth, Daily, Dutch label please, # 30 capsule, 5 Refills, Maintenance, 11/03/23 10:11:00 EST, [facility], dose increase to 40mg 11/03/23, 175.3, cm, 10/01/23 17:00:00 EST, Height, 82.6, kg, 11/14/21 10:17:00 EST, Dry We... Start Date: 11/03/23 Status: Ordered meloxicam 15 mg oral tablet 1 tablet, By Mouth, Daily, INSTR:TAKE WITH FOOD. Dutch label please., # 30 tablet, 1 Refills, [...] surgery Confirmed Active Primary language spoken is Dutch Confirmed Active Lobular carcinoma in situ (LCIS) [...] Team Personnel Name: Flako Benavides MD Position: [facility] Resident Member Role: PCP Address: Address: [address] [place] [id number]- Name: Homer Simon RN Position: [facility] SN RN Member Role: Primary Care Nurse Care Team Related Persons Name: PHOEBE SORTO Address: home [address] [place] [address] Name: YAMILKA WELLER Address: [place] [address] Name: KITA ZAMBRANO Address: home [address] [place] [address]
--- OUTSIDE RECORDS SUMMARY | 2024-05-30 08:58 | XMS_ITS | Continuity of Care Document ---
Author Organization [facility] Address [address] [place] [address]- Care Team Providers Care Director Diversity Name Role Phone Dylan Lu MD Primary Care Physician ( [phone] Encounter [facility] Date(s): 04/30/21 - 05/30/21 [facility] [address] [place] [address]- Allergies, Adverse Reactions, Alerts Substance Reaction Severity [...] Soft Stop, 05/09/21 8:28:00 EDT, Tablet, [facility]/pharmacy #[id number], Partial fill upon pat... Start Date: 05/09/21 Status: Ordered omeprazole 20 mg oral delayed release tablet 1 tablet = 20 mg, By Mouth, Daily, # 30 tablet, 0 Refills, Maintenance, 05/24/21 10:01:00 EDT, CR Tablet, [facility]/pharmacy #[id number], Label in Tajik. D/c Famotidine., 175, cm, 05/09/21 8:11:00 EDT, [...]
--- OUTSIDE RECORDS SUMMARY | 2024-05-30 08:58 | XMS_ITS | Continuity of Care Document ---
Author Organization [facility] Address [address] [place] [address]- Care Team Providers Care Window And Door Installer Name Role Phone Dylan Lu MD S Primary Care Physician ( [phone] [place] [facility] [place](s): 08/13/22 - 09/12/22 [facility] [address] [place] [address]- Allergies, Adverse Reactions, Alerts Substance Reaction Severity Status Percocet GI upset, made me feel sick Active Immunizations Given and Recorded Vaccine Date Status Refusal Reason SARS-CoV-2 mRNA (jahjtvd-xdtm-xehox) vax 10/21/21 Given influenza virus vaccine, inactivated [...] 01/21/22 8:34:00 EDT, Route to Pharmacy Electronically, [facility]/pharmacy #[id number], Partial fill upon patient request if the prescription i... Start Date: 01/21/22 Status: Ordered diclofenac 1% topical gel See Instructions, APPLY TOPICALLY 4 TIMES DAILY NEEDED FOR PAIN NOT TO EXCEED 32 GRAMS DAILY., #100 Gm, 12 Refills, [id number], 25, APPLY TOPICALLY 4 TIMES DAILY NEEDED [...] Details, Route to Pharmacy Electronically, [id number], 175.... Start Date: 07/23/22 Status: Ordered gabapentin [...] 07/25/22 14:47:00 EST, Route to Pharmacy Electronically, [facility]/pharmacy #1130, Partial fill upon patient [...] surgery Confirmed Active Primary language spoken is Algerian Confirmed Active Lobular carcinoma in situ (LCIS) [...] Team Personnel Name: Dylan Lu MD Position: [facility] Resident Member Role: PCP Address: Address: [address] [place] [address] [place], [place] [address] Name: Alfred SUMMERS, Homer Position: Pedro SN RN Member Role: Primary Care Nurse Care Team Related Persons Name: BELINO, PHOEBE Address: home [address] [place] [address] Name: YAMILKA WELLER Address: [place] [address] Name: KITA ZAMBRANO Address: home [address] [place] [address]
--- OUTSIDE RECORDS SUMMARY | 2024-05-30 08:58 | XMS_ITS | Continuity of Care Document ---
Author Organization [facility] Address [address] [place] [address]- Care Team Providers Care Civil Litigation Attorney Name Role Phone Dylan Lu MD Primary Care Physician [place] [facility] [place] 09/16/22 - 11/25/[address] [address]- Encounter Diagnosis Low back pain, unspecified(Final) - Discharge Disposition: A-D/C Home Attending Physician: Alisa Lu DO Admitting Physician: Alisa Lu DO Referring Physician: Alisa Lu DO Allergies, Adverse Reactions, Alerts Substance Reaction Severity Status Percocet GI upset, made me feel sick Active Immunizations Given and Recorded Vaccine Date Status Refusal Reason SARS-CoV-2 mRNA (jjmczmk-[id number]) vax 10/21/21 Given influenza virus vaccine, inactivated [...] Note: outside office 2Admin Note: vis given 8/10/10 3Admin Note: VIS GIVEN 4Admin Note: vis given Medications acetaminophen 325 mg oral tablet 650 mg, 2, tablet, By Mouth, Every 8 hours, PRN, # 100 tablet, Refills 1, Tot. Refills 1, Maintenance, Pain , Moderate, 01/21/22 8:34:00 EDT, Route to Pharmacy Electronically, [facility]/pharmacy #1130, Partial fill upon patient request if the prescription i... Start Date: 01/21/22 Status: Ordered diclofenac 1% topical gel See Instructions, APPLY TOPICALLY 4 TIMES DAILY NEEDED FOR PAIN NOT TO EXCEED 32 GRAMS DAILY., #100 Gm, 12 Refills, [facility], 25, APPLY TOPICALLY 4 TIMES DAILY NEEDED FOR PAIN NOT TO EXCEED 32 GRAMS DAILY., 175, cm, 01/21/22 7:55:00 EDT,... Start Date: 04/16/22 Status: Ordered Diflucan 150 mg oral tablet 1 tablet = 150 mg, By Mouth, Once, # 1 tablet, 0 Refills, Soft Stop, 12/06/21 12:35:00 EDT, [facility]/pharmacy #1130, Partial fill upon patient request if the prescription is for a schedule II opioid drug., 175, cm, 11/26/21 9:31:00 EDT, Height, 82.6, kg, 0... Start Date: 12/06/21 Status: Ordered FLUoxetine 20 mg oral tablet 1.5 tablet = 30 mg, By Mouth, Daily, Guyanese label please., # 45 tablet, 5 Refills, Maintenance, 09/24/22 8:25:00 EST, [facility]/pharmacy #1130, Dose increase to 30mg qd 09/24/22, 175.3, cm, 08/06/22 10:40:00 EST, Height, 82.6, kg, 11/14/21 10:17:00 EST, Dry... Start Date: 09/24/22 Status: Ordered gabapentin 100 mg oral capsule 100 mg, 1, capsule, By Mouth, 3 times a day, # 90 capsule, Refills 1, Tot. Refills 1, Maintenance, 11/01/21 11:52:00 EST, Route to Pharmacy Electronically, [facility]/pharmacy #1130, Partial fill upon patient request if the prescription is for a schedule II... Start Date: 11/01/21 Stop Date: 12/31/21 Status: Ordered hydrOXYzine hydrochloride 25 mg oral tablet 1 tablet = 25 mg, By Mouth, Daily at bedtime, Guyanese label please., # 30 tablet, 3 Refills, Maintenance, 09/24/22 8:26:00 EST, [facility]/pharmacy #1130, Partial fill upon patient request if the prescription is for a schedule II opioid drug., 175.3, cm, 11... Start Date: 09/24/22 Status: Ordered meloxicam 15 mg oral tablet 1 tablet = 15 mg, By Mouth, Daily, for pain take with food Guyanese label please., # 30 tablet, 1 Refills, [...] Refills, Maintenance, 06/12/22 20:32:00 EDT, REC Powder, [facility]/pharmacy #1130, Partial fill upon patient request if [...] 07/25/22 14:47:00 EST, Route to Pharmacy Electronically, [facility]/pharmacy #1130, Partial fill upon patient request if the prescription is for a schedule II opio... Start Date: 07/25/22 Stop Date: 07/30/22 Status: Ordered traZODone 50 mg oral tablet 50 mg, 1, tablet, By Mouth, Daily at bedtime, for sleep Guyanese label please, # 30 tablet, Refills 5, Tot. Refills 5, Maintenance, 11/13/22 16:13:00 EST, Route to Pharmacy Electronically, [facility]/pharmacy #1130, Partial fill upon patient request if [...] surgery Confirmed Active Primary language spoken is Guyanese Confirmed Active Lobular carcinoma in situ (LCIS) [...] Team Personnel Name: Dylan Lu MD Position: [facility] Resident Member Role: PCP Address: Address: [address] [place] [address]- Name: Homer Simon RN Position: [facility] SN RN Member Role: Primary Care Nurse Care Team Related Persons Name: PHOEBE SORTO Address: home [address] [place] [address] Name: YAMILKA WELLER Address: [place] [address] Name: KITA ZAMBRANO Address: home [address] [place] [address]
--- OUTSIDE RECORDS SUMMARY | 2024-05-30 08:58 | XMS_ITS | Continuity of Care Document ---
Author Organization [facility] Dary sushila Address [address] [place] [address] [address] [place] [address]- Care Team Providers Care Label Designer Name Role Phone Elvis PALACIOS, Elena Primary Care Physician [phone] Encounter [facility] Date(s): 12/23/19 - 01/02/20 [facility] [address] [place] [address] Attending Physician: AdmAnali tolentino Admitting Physician: AdmtrAnali Referring Physician: Admtr, Ar8 [...] 10/21/18 19:02:27 EST, Route to Pharmacy Electronically, [id number], [facility]/pharmacy #1130 Start Date: 10/21/18 Status: Ordered Zantac [...]
--- OUTSIDE RECORDS SUMMARY | 2024-05-30 08:58 | XMS_ITS | Continuity of Care Document ---
Author Organization [facility] Dary sushila Address [address] [place] [address] [address] [place] [address]- Care Team Providers Care Detective Homicide Squad Name Role Phone Dylan Lu MD Primary Care Physician [place] [facility] [place] 08/13/21 [facility] [address] [place], [place] [address] Attending Physician: Robin PALACIOS, William Baez Referring [...] 07/31/21 11:46:00 EST, Route to Pharmacy Electronically, [facility]/pharmacy #1130, Partial fill upon patient request if the prescri... Start Date: 07/31/21 Stop Date: 08/14/21 Status: Ordered MELATONIN 5 MG TABLET MELATONIN 5 MG TABLET, See Instructions, # 30 tablet, 3 Refills, TOME ANNAMARIE TABLETA POR VIA ORAL A DIARIO AL ACOSTARSE CUANDO SEA NECESARIO FOR INSOMNIA, 175, cm, 06/05/21 10:36:00 EDT, Height Start Date: 06/14/21 Status: Ordered Tylenol Extra Strength 500 mg oral tablet 1 tablet = 500 mg, By Mouth, Every 6 hours, PRN as needed for pain, for 14 days, # 50 tablet, 0 Refills, Acute 08/14/21 11:46:00 EST, 07/31/21 11:46:00 EST, Tablet, [facility]/pharmacy #[id number], Partial fill upon patient request if the prescription is for a antione... Start Date: 07/31/21 Stop Date: 08/14/21 Status: Ordered Problem List Condition Effective Dates Status Health Status Inform ant History of subconjunctival hemorrhage(Confirmed) Active History of keloid of skin af er surgery(Confirmed) Active Primary language spoken is Maori(Confirmed) Active Lobular carcinoma in situ (L CIS) , left breast, 2004(Confirmed) 2004 Active Migraine(Confirmed) 1987 Active Overweight(Confirmed) Active History of ASCUS, HPV + Pap smear 12/23/16. Last Pap 11/25/17 negative with negative HPV(Confirmed) Active Vital Signs Most recent to oldest [Reference Range]: 1 Height 175 cm (08/06/21 1:57 PM) Temperature [96.8-100.4 DegF] 97.6 DegF (08/06/21 1:57 PM) Temperature Route Temporal (08/06/21 1:57 PM) Social History Social History Type Response Smoking Status Never smoker entered on: 01/11/14 Sex
--- OUTSIDE RECORDS SUMMARY | 2024-05-30 08:58 | XMS_ITS | Continuity of Care Document ---
Author Organization [facility] Dary sushila Address [address] [place] [address] [address] [place] [address]- Care Team Providers Care Cement Boat And Barge Loader Name Role Phone Aly PALACIOS, Dylan S Primary Care Physician [facility] Date(s): 09/10/21 - 09/17/21 [facility] [address] [place], [place] [address] Attending Physician: Robin PALACIOS, William Baez Allergies, [...] er surgery(Confirmed) Active Primary language spoken is South Sudanese(Confirmed) Active Lobular carcinoma in situ (L CIS) , left breast, 2004(Confirmed) 2004 Active Migraine(Confirmed) 1987 Active Overweight(Confirmed) Active History of ASCUS, HPV + Pap smear 12/23/16. Last Pap 11/25/17 negative with negative HPV(Confirmed) Active Vital Signs Most recent to oldest [Reference Range]: 1 Height 175 cm (09/10/21 1:11 PM) Weight 80 kg (09/10/21 1:11 PM) Body Mass Index [18.5-24.99] 26.12 *H* (09/10/21 1:11 PM) Temperature [96.8-100.4 DegF] 96.9 DegF (09/10/21 1:11 PM) Temperature Route Temporal (09/10/21 1:11 PM) Dry Weight 80 kg (09/10/21 1:11 PM) Dry Weight Obtained Via Standing scale (09/10/21 1:11 PM) Social History Social History Type Response Smoking Status Never smoker entered on: 01/11/14 Sex
--- OUTSIDE RECORDS SUMMARY | 2024-05-30 08:58 | XMS_ITS | Continuity of Care Document ---
Author Organization [facility] Dary sushila Address [address] [place] [address] [address] [place] [address]- Care Team Providers Care Hr Administrative Assistant Name Role Phone Dylan Lu MD Primary Care Physician ( [phone] Encounter [facility] Date(s): 11/12/21 - 12/12/21 [facility] [address] [place], [place] [address] Attending Physician: AdmAnali tolentino Admitting Physician: Admtr, Anali Referring Physician: Admtr, Ar8 Allergies, Adverse Reactions, Alerts Substance Reaction Severity Status Percocet GI upset, made me feel sick Active Immunizations Given and Recorded Vaccine Date Status Refusal Reason SARS-CoV-2 mRNA ([id number]-ifgm-fyudf) vax 10/21/21 Given influenza virus vaccine, inactivated [...] 32 GRAMS/DAY, # 100 Gm, 1 Refills, [facility] [address], 30, APPLY TOPICALLY 4 TIMES A DAY CUANDO SEA NECESARIO FOR PAIN NOT TO EXCEED 32 GRAMS/DAY, 175, cm, ... Start Date: 11/25/21 Status: Ordered Diflucan 150 mg oral tablet 1 tablet = 150 mg, By Mouth, Once, # 1 tablet, 0 Refills, Soft Stop, 12/06/21 12:35:00 EDT, [facility]/pharmacy #1130, Partial fill upon patient request if the prescription is for a schedule II opioid drug., 175, cm, 11/26/21 9:31:00 EDT, Height, 82.6, kg, 0... Start Date: 12/06/21 Status: Ordered FLUoxetine 20 mg oral capsule 20 mg, 1, capsule, By Mouth, Daily, NEPALI INSTRUCTIONS Please take every morning every day [...] 11/01/21 11:52:00 EST, Route to Pharmacy Electronically, [facility]/pharmacy #1130, Partial fill upon patient [...] 0 Refills, Maintenance, 06/11/22 17:00:00 EDT, [place], [facility]/pharmacy #1130, test date 06/12/22 . [...] er surgery(Confirmed) Active Primary language spoken is Estonian(Confirmed) Active Lobular carcinoma in situ (L CIS) , left breast, 2004(Confirmed) 2004 Active Migraine(Confirmed) 1987 Active Overweight(Confirmed) Active History of ASCUS, HPV + Pap smear 12/23/16. Last Pap 11/25/17 negative with negative HPV(Confirmed) Active Social History Social History Type Response Smoking Status Never smoker entered on: 01/11/14 Sex
--- OUTSIDE RECORDS SUMMARY | 2024-05-30 08:58 | XMS_ITS | Continuity of Care Document ---
Author Organization [facility] Address [address] [place] [address]- Care Team Providers Care Calender Roll Press Operator Name Role Phone Flako Benavides MD Primary Care Physician Encounter [facility] [place] Date(s): 10/01/23 - 10/31/23 [facility] [address] [place] [address] Allergies, Adverse Reactions, Alerts Substance Reaction Severity Status Percocet GI upset, made me feel sick Active Immunizations Given and Recorded Vaccine Date Status Refusal Reason SARS-CoV-2 mRNA (szstuxd-wdij-bqmxk) vax 10/21/21 Given influenza virus vaccine, inactivated [...] Gm, 12 Refills, Maintenance, 04/22/23 11:02:00 EDT, [facility], 25, APPLY TOPICALLY 4 TIMES DAILY NEEDED FOR PAIN NOT TO EXCEED 32 GRAMS DA... Start Date: 04/22/23 Status: Ordered eszopiclone 1 mg oral tablet 1 tablet = 1 mg, By Mouth, Daily, TAKE IMMEDIATELY BEFORE BED., # 30 tablet, 2 Refills, Maintenance, 08/03/23 8:10:00 EST, [facility]/pharmacy #1130, D/C DOXEPIN PLEASE, 175.3, cm, 07/27/23 10:07:00 EST, Height, 82.6, kg, 11/14/21 10:17:00 EST, Dry Weight Start Date: 08/03/23 Status: Ordered FLUoxetine 20 mg oral capsule 20 mg, 1, capsule, By Mouth, Daily, # 28 capsule, Refills 0, Tot. Refills 0, Maintenance, 10/01/23 16:50:00 EST, [id number] Partial fill upon patient request if the prescription is for a schedule II opioid drTj. Start Date: 10/01/23 Stop Date: 10/29/23 Status: Ordered meloxicam 15 mg oral tablet 1 tablet, By Mouth, Daily, INSTR:TAKE WITH FOOD. Belgian label please., # 30 tablet, 1 Refills, Maintenance, 08/26/23 9:15:00 EST, [facility]/pharmacy #1130, 175.3, cm, 08/18/23 9:52:00 EST, Height, [...] Maintenance, 06/12/22 20:32:00 EDT, REC Powder, [facility]/pharmacy #1130, Partial fill upon patient request if the prescription is for... Start Date: 06/12/22 Status: Ordered tamoxifen 20 mg oral tablet 1 tablet = 20 mg, By Mouth, Daily, # 90 tablet, 0 Refills, Maintenance, 10/19/23 18:16:00 EST, Tablet, [facility]/pharmacy #1130, Partial fill upon patient request if the prescription is for a schedule II opioid drug., 175.3, cm, 09/01/23 10:09:00 EST, Heigh... Start Date: 10/19/23 Status: Ordered Tylenol 8 Hour [...] surgery Confirmed Active Primary language spoken is Belgian Confirmed Active Lobular carcinoma in situ (LCIS) [...] Team Personnel Name: Flako Benavides MD Position: [facility] Resident Member Role: PCP Address: Address: [address] [place] [address]- Name: Homer Simon RN Position: [facility] RN Member Role: Primary Care Nurse Care Team Related Persons Name: PHOEBE SORTO Address: home [address] [place] [address] Name: YAMILKA WELLER Address: [place] [address] Name: KITA ZAMBRANO Address: home [address] [place] [address]
--- OUTSIDE RECORDS SUMMARY | 2024-05-30 08:58 | XMS_ITS | Continuity of Care Document ---
Author Organization [facility] Address [address] [place] [address]- Care Team Providers Care Special Client Bus Driver Name Role Phone Dylan Lu MD Primary Care Physician [facility]counter [facility] Date(s): 05/31/21 - 06/30/[address] [address] Allergies, Adverse Reactions, Alerts Substance [...] Refills, Soft Stop, 05/09/21 8:28:00 EDT, Tablet, [facility]/pharmacy #[id number], Partial fill upon pat... [...]
--- OUTSIDE RECORDS SUMMARY | 2024-05-30 08:58 | XMS_ITS | Continuity of Care Document ---
Author Organization [facility] Address [address] [place] [address]- Care Team Providers Care Supervisor Insecticide Name Role Phone Dylan Lu MD Primary Care Physician ( [phone] Encounter [facility] [place] Date(s): 05/31/20 - 07/07/20 [facility] [address] [place] [address]- [facility] Attending Physician: Yovani Gonzalez MD Admitting Physician: [...] Dry Weight Start Date: 06/13/20 Stop Date: 10/30/20 Status: Ordered Problem List Condition Effective Dates [...]
--- OUTSIDE RECORDS SUMMARY | 2024-05-30 08:58 | XMS_ITS | Continuity of Care Document ---
Author Organization [facility] Address [address] [place] [address]- Care Team Providers Care Electric Meter Repairer Helper Name Role Phone Aly PALACIOS, Dylan S Primary Care Physician [facility] Date[facility]s): 01/21/22 - 02/20/22 [facility] [address] [place] [address]- Attending Physician: Anali Brewer Admitting Physician: AdmAnali tolentino Referring Physician: AdmtrAnali Allergies, Adverse Reactions, Alerts Substance Reaction Severity Status Percocet GI upset, made me feel sick Active Immunizations Given and Recorded Vaccine Date Status Refusal Reason SARS-CoV-2 mRNA (bayyrva-nqea-flodp) vax 10/21/21 Given influenza virus vaccine, inactivated [...] 01/21/22 8:34:00 EDT, Route to Pharmacy Electronically, [facility]/pharmacy #1130, Partial fill upon patient request if the prescription i... Start Date: 01/21/22 Status: Ordered diclofenac 1% topical gel See Instructions, APPLY TOPICALLY 4 TIMES A DAY CUANDO SEA NECESARIO FOR PAIN NOT TO EXCEED 32 GRAMS/DAY, # 100 Gm, 1 Refills, [facility] STORE [id number], 30, APPLY TOPICALLY 4 TIMES A DAY CUANDO SEA NECESARIO FOR PAIN NOT TO EXCEED 32 GRAMS/DAY, 175, cm, ... Start Date: 01/22/22 Status: Ordered Diflucan 150 mg oral tablet 1 tablet = 150 mg, By Mouth, Once, # 1 tablet, 0 Refills, Soft Stop, 12/06/21 12:35:00 EDT, [facility]/pharmacy #1130, Partial fill upon patient request if the prescription is for a schedule II opioid drug., 175, cm, 11/26/21 9:31:00 EDT, Height, 82.6, kg, 0... Start Date: 12/06/21 Status: Ordered FLUoxetine 20 mg oral capsule 20 mg, 1, capsule, By Mouth, Daily, VIETNAMESE INSTRUCTIONS Please take every morning every day [...] 11/01/21 11:52:00 EST, Route to Pharmacy Electronically, [facility]/pharmacy #1130, Partial fill upon patient [...] 0 Refills, Maintenance, 06/11/22 17:00:00 EDT, Bala, [facility]/pharmacy #1130, test date 06/12/22 . [...] er surgery(Confirmed) Active Primary language spoken is Cuban(Confirmed) Active Lobular carcinoma in situ (L CIS) , left breast, 2004(Confirmed) 2004 Active Migraine(Confirmed) 1987 Active Overweight(Confirmed) Active History of ASCUS, HPV + Pap smear 12/23/16. Last Pap 11/25/17 negative with negative HPV(Confirmed) Active Social History Social History Type Response Smoking Status Never smoker entered on: 01/11/14 Sex
--- OUTSIDE RECORDS SUMMARY | 2024-05-30 08:58 | XMS_ITS | Continuity of Care Document ---
Author Organization [facility] Address [address] [place] [address]- Care Team Providers Care Chef De Cuisine Name Role Phone Flako Benavides MD Primary Care Physician Encounter [facility] Date(s): 04/01/23 - 05/01/[address] [address] Attending Physician: Anali Brewer Admitting Physician: AdmtrAnali Referring Physician: Admtr, Ar8 Allergies, Adverse Reactions, Alerts Substance Reaction Severity Status Percocet GI upset, made me feel sick Active Immunizations Given and Recorded Vaccine Date Status Refusal Reason SARS-CoV-2 mRNA (etqapaf-rhpr-bpwtp) vax 10/21/21 Given influenza virus vaccine, inactivated [...] Refills, Maintenance, 04/22/23 11:02:00 EDT, [id number], 25, APPLY TOPICALLY 4 TIMES DAILY NEEDED FOR PAIN NOT TO EXCEED 32 GRAMS DA... Start Date: 04/22/23 Status: Ordered meloxicam 15 mg oral tablet 1 tablet, By Mouth, Daily, INSTR:TAKE WITH FOOD., # 30 tablet, 0 Refills, Maintenance, 02/16/23 11:52:00 EDT, [id number], 175.3, cm, 01/07/23 11:19:00 EDT, Height, 82.6, [...] 06/12/22 20:32:00 EDT, REC Powder, [facility]/pharmacy #1130, Partial fill upon patient request if the prescription is for... Start Date: 06/12/22 Status: Ordered tamoxifen 20 mg oral tablet 1 tablet = 20 mg, By Mouth, Daily, # 30 tablet, 5 Refills, Maintenance, 04/22/23 18:16:00 EDT, Tablet, [facility]/pharmacy #1130, Partial fill upon patient request if [...] surgery Confirmed Active Primary language spoken is Nigerian Confirmed Active Lobular carcinoma in situ (LCIS) [...] Team Personnel Name: Flako Benavides MD Position: [facility] Resident Member Role: PCP Address: Address: [address] [place] [id number]- Name: Homer Simon RN Position: [facility] SN RN Member Role: Primary Care Nurse Care Team Related Persons Name: PHOEBE SORTO Address: home [address] [place] [address] Name: YAMILKA WELLER Address: [place] [address] Name: KITA ZAMBRANO Address: home [address] [place] [address]
--- OUTSIDE RECORDS SUMMARY | 2024-05-30 08:58 | XMS_ITS | Continuity of Care Document ---
Author Organization [facility] Address [address] [place] [address]- Care Team Providers Care Travel Ticketing Reviewer Name Role Phone Flako Benavides MD Primary Care Physician [facility] Date[facility]s): 07/13/23 - 08/12/23 [facility] [address] [place] [id number] Allergies, Adverse Reactions, Alerts Substance Reaction Severity Status Percocet GI upset, made me feel sick Active Immunizations Given and Recorded Vaccine Date Status Refusal Reason SARS-CoV-2 mRNA (xdhhfnw-ektf-hmpgx) vax 10/21/21 Given influenza virus vaccine, inactivated [...] Gm, 12 Refills, Maintenance, 04/22/23 11:02:00 EDT, [facility] STORE 76986, 25, APPLY TOPICALLY 4 TIMES DAILY NEEDED FOR PAIN NOT TO EXCEED 32 GRAMS DA... Start Date: 04/22/23 Status: Ordered eszopiclone 1 mg oral tablet 1 tablet = 1 mg, By Mouth, Daily, TAKE IMMEDIATELY BEFORE BED., # 30 tablet, 2 Refills, Maintenance, 08/03/23 8:10:00 EST, [facility]/pharmacy #1130, D/C DOXEPIN PLEASE, 175.3, cm, 07/27/23 10:07:00 EST, Height, 82.6, kg, 11/14/21 10:17:00 EST, Dry Weight Start Date: 08/03/23 Status: Ordered meloxicam 15 mg oral tablet 1 tablet, By Mouth, Daily, INSTR:TAKE WITH FOOD. Malaysian label please., # 30 tablet, 0 Refills, Maintenance, 07/27/23 10:54:00 EST, [facility]/pharmacy #1130, 175.3, cm, 07/27/23 10:07:00 EST, Height, 82.6,kg, 11/14/21 10:17:00 EST, Dry Weight Start Date: 07/27/23 Status: Ordered please d/c fluoxetine, trazodone, hydroxyzine [...] 5 Refills, Maintenance, 04/22/23 18:16:00 EDT, Tablet, [facility], Partial [...] surgery Confirmed Active Primary language spoken is Malaysian Confirmed Active Lobular carcinoma in situ (LCIS) [...] Team Personnel Name: Flako Benavides MD Position: [facility] Resident Member Role: PCP Address: Address: [address] [place] [address]- Name: Homer Simon RN Position: [facility] RN Member Role: Primary Care Nurse Care Team Related Persons Name: PHOEBE SORTO Address: home [address] [place] [address] Name: YAMILKA WELLER Address: [place] [address] Name: KITA ZAMBRANO Address: home [address] [place] [address]
--- OUTSIDE RECORDS SUMMARY | 2024-05-30 08:58 | XMS_ITS | Continuity of Care Document ---
Author Organization [facility] sush[facility] Address [address] [place] [address] [address]ri [address] [place] [address]- Care Team Providers Care Ceramics Machine Operator Name Role Phone Aly PALACIOS, Dylan Vasquez Primary Care Physician Encounter [facility] Date(s): 10/03/21 - 12/12/21 [facility] [address] [place] [address]- Attending Physician: Robin PALACIOS, William Baez Allergies, Adverse Reactions, Alerts Substance Reaction Severity Status Percocet GI upset, made me feel sick Active Immunizations Given and Recorded Vaccine Date Status Refusal Reason SARS-CoV-2 mRNA (cxdxhcy-jlfh-gyeys) vax 10/21/21 Given influenza virus vaccine, inactivated [...] 32 GRAMS/DAY, # 100 Gm, 1 Refills, [facility] STORE [id number], 30, APPLY TOPICALLY 4 TIMES A DAY [...] 1, capsule, By Mouth, Daily, CITIZ[place] INSTRUCTIONS Please take every morning every day [...] 0 Refills, Maintenance, 06/11/22 17:00:00 EDT, Bala, [facility]/pharmacy #1130, test date 06/12/22 . CA... Start [...] er surgery(Confirmed) Active Primary language spoken is Sierra Leonean(Confirmed) Active Lobular carcinoma in situ (L CIS) , left breast, 2004(Confirmed) 2004 Active Migraine(Confirmed) 1987 Active Overweight(Confirmed) Active History of ASCUS, HPV + Pap smear 12/23/16. Last Pap 11/25/17 negative with negative HPV(Confirmed) Active Social History Social History Type Response Smoking Status Never smoker entered on: 01/11/14 Sex
--- OUTSIDE RECORDS SUMMARY | 2024-05-30 08:58 | XMS_ITS | Continuity of Care Document ---
Author Organization [facility] sushila Address [address] [place] [address] [address] [place] [address]- Care Team Providers Care Insurance Underwriting Assistant Name Role Phone Aly APLACIOS, Dylan S Primary Care Physician [facility]counter [facility] Date(s): 08/15/21 - 11/30/21 [facility] [address] [place] [address]- Attending Physician: Robin PALACIOS, William Baez Allergies, Adverse Reactions, Alerts Substance Reaction Severity Status Percocet GI upset, made me feel sick Active Immunizations Given and Recorded Vaccine Date Status Refusal Reason SARS-CoV-2 mRNA (xonzabj-ariz-odbxw) vax 10/21/21 Given influenza virus vaccine, inactivated [...] 32 GRAMS/DAY, # 100 Gm, 1 Refills, [facility] STORE 97575, 30, APPLY TOPICALLY 4 TIMES A DAY CUANDO SEA NECESARIO FOR PAIN NOT TO EXCEED 32 GRAMS/DAY, 175, cm, ... Start Date: 11/25/21 Status: Ordered FLUoxetine 20 mg oral capsule 20 mg, 1, capsule, By Mouth, Daily, IVORIAN INSTRUCTIONS Please take every morning every day [...] 11/01/21 11:52:00 EST, Route to Pharmacy Electronically, [facility] [...] 0 Refills, Maintenance, 06/11/22 17:00:00 EDT, RECPowder, [facility]/pharmacy #1130, test date 06/12/22 . CA... 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 Last Pap 11/25/17 negative with negative HPV(Confirmed) Active Social History Social History Type Response Smoking Status Never smoker entered on: 01/11/14 Sex
--- OUTSIDE RECORDS SUMMARY | 2024-05-30 08:59 | XMS_ITS | Continuity of Care Document ---
Author Organization [facility] Address [address] [place] [address]- Care Team Providers Care Decorative Greens Cutter Name Role Phone Dylan Lu MD S Primary Care Physician [facility] Date(s): 09/25/22 - 10/25/[address] [address] Attending Physician: AdmAnali tolentino Admitting Physician: AdmtrAnali Referring Physician: Admtr, Ar8 Allergies, Adverse Reactions, Alerts Substance Reaction Severity Status Percocet GI upset, made me feel sick Active Immunizations Given and Recorded Vaccine Date Status Refusal Reason SARS-CoV-2 mRNA (roxtccg-gtia-neznc) vax 10/21/21 Given influenza virus vaccine, inactivated [...] 32 GRAMS DAILY., #100 Gm, 12 Refills, [facility] STORE 13282, 25, APPLY TOPICALLY 4 TIMES DAILY NEEDED [...] Details, Route to Pharmacy Electronically, [facility], 175.... Start Date: 07/23/22 Status: Ordered FLUoxetine 20 mg oral tablet 1.5 tablet = 30 mg, By Mouth, Daily, Sami label please., # 45 tablet, 5 Refills, [...] 25 mg, By Mouth, Daily at bedtime, Sami label please., # 30 tablet, 3 Refills, Maintenance, 09/24/22 8:26:00 EST, [facility], Partial fill upon patient request if the prescription is for a schedule II opioid drug., 175.3, cm, ... Start Date: 09/24/22 Status: Ordered meloxicam 15 mg oral tablet 1 tablet = 15 mg, By Mouth, Daily, for pain take with food Sami label please., # 30 tablet, 1 Refills, [...] Refills, Maintenance, 06/12/22 20:32:00 EDT, REC Powder, [facility]/pharmacy #1130, [...] surgery Confirmed Active Primary language spoken is Sami Confirmed Active Lobular carcinoma in situ (LCIS) [...] Team Personnel Name: Dylan Lu MD Position: [facility] Resident Member Role: PCP Address: Address: [address] [place] [id number]- Name: Alfred SUMMERS, Homer Position: [facility] RN Member Role: Primary Care Nurse Care Team Related Persons Name: PHOEBE SORTO Address: home [address] [place] [address] Name: YAMILKA WELLER Address: [place] [address] Name: KITA ZAMBRANO Address: home [address] [place] [address]
--- OUTSIDE RECORDS SUMMARY | 2024-05-30 08:59 | XMS_ITS | Continuity of Care Document ---
Author Organization [facility] Address [address] [place] [address]- Care Team Providers Care Breast Worker Name Role Phone Dylan Lu MD Primary Care Physician [place] [facility] Date(s): 04/24/21 - 04/25/[address] [address]- Discharge Disposition: A-D/C Home Attending Physician: Lucio Fermin DO Admitting Physician: Lucio Fermin DO Referring Physician: Not on Staff, Referring MD Allergies, Adverse Reactions, Alerts Substance Reaction [...] VIS GIVEN 4Admin Note: vis given Medications No Known Medications Problem List Condition Effective Dates Status Health [...] to oldest [Reference Range]: 1 2 3 Oxygen Saturation [94-100 %] 100 % (04/25/21 10:58 AM) 100 % (04/25/21 8:07 AM) 100 % (04/25/21 4:55 AM) Pulse Rate [55-90 bpm] 80 bpm (04/25/21 10:58 AM) 83 bpm (04/25/21 8:07 AM) 72 bpm (04/25/21 4:55 AM) Blood Pressure [90-138/55-84 mm Hg] 140/88mm Hg *H* (04/25/21 10:58 AM) 142/92mm Hg *H* (04/25/21 8:07 AM) 135/92mm Hg (04/25/21 4:55 AM) Respiratory Rate [16-30 br/min] 18 br/min (04/25/21 10:58 AM) 18 br/min (04/25/21 8:07 AM) 16 br/min (04/25/21 4:55 AM) Temperature [96.8-100.4 DegF] 98.0 DegF (04/25/21 10:58 AM) 97.9 DegF (04/25/21 8:07 AM) 98.3 DegF (04/25/21 4:55 AM) Mode of Delivery (Oxygen) Room air (04/25/21 10:58 AM) Room air (04/25/21 8:07 AM) Room air (04/25/21 4:55 AM) Blood pressure sites Arm, left (04/25/21 10:58 AM) Arm, left (04/25/21 8:07 AM) Arm, right (04/25/21 4:55 AM) Temperature Route Oral (04/25/21 10:58 AM) Oral (04/25/21 8:07 AM) Oral (04/25/21 4:55 AM) Social History Social History Type Response Smoking Status Never smoker entered on: 01/11/14 Sex
--- OUTSIDE RECORDS SUMMARY | 2024-05-30 08:59 | XMS_ITS | Continuity of Care Document ---
Author Organization [facility] Dary sushila Address [address] [place] [address] [address] [place] [address]- Care Team Providers Care Culturist Name Role Phone Aly PALACIOS, Dylan Vasquez Primary Care Physician [facility] Date(s): 01/10/22 - 05/10/22 [facility] [address] [place] [address]- Attending Physician: Robin PALACIOS, William Baez Allergies, Adverse Reactions, Alerts Substance Reaction Severity Status Percocet GI upset, made me feel sick Active Immunizations Given and Recorded Vaccine Date Status Refusal Reason SARS-CoV-2 mRNA (fcaqsmc-rvjh-vlcmx) vax 10/21/21 Given influenza virus vaccine, inactivated [...] 01/21/22 8:34:00 EDT, Route to Pharmacy Electronically, [facility]/pharmacy #1130, Partial fill upon patient request if the prescription i... Start Date: 01/21/22 Status: Ordered diclofenac 1% topical gel See Instructions, APPLY TOPICALLY 4 TIMES DAILY NEEDED FOR PAIN NOT TO EXCEED 32 GRAMS DAILY., #100 Gm, 12 Refills, [facility] STORE 91349, 25, APPLY TOPICALLY 4 TIMES DAILY NEEDED [...] 20 mg, 1, capsule, By Mouth, Daily, SLOVAK INSTRUCTIONS Please take every morning every day [...] 0 Refills, Maintenance, 04/30/22 10:45:00 EDT, Tablet, [facility], Partial fill upon [...] 0 Refills, Maintenance, 06/11/22 17:00:00 EDT, RECPowder, [facility]/pharmacy #1130, test date 06/12/22 . CA... Start Date: 06/11/22 Status: Ordered tiZANidine 2 mg oral capsule 1 capsule = 2 mg, By Mouth, 3 times a day, PRN as needed for muscle spasm, # 40 capsule, 1 Refills,Maintenance, 04/30/22 10:45:00 EDT, Capsule, [facility]/pharmacy #1130, Partial fill upon [...] Team Personnel Name: Dylan Lu MD Address: [address] [place] [address]
--- OUTSIDE RECORDS SUMMARY | 2024-05-30 08:59 | XMS_ITS | Continuity of Care Document ---
Author Organization [facility] Address [address] [place] [address]- Care Team Providers Care Human Resources Office Manager Name Role Phone Aly PALACIOS, Dylan S Primary Care Physician [facility] Date(s): 05/22/22 - 06/21/22 [facility] [address] [place] [address] Allergies, Adverse Reactions, Alerts Substance Reaction Severity Status Percocet GI upset, made me feel sick Active Immunizations Given and Recorded Vaccine Date Status Refusal Reason SARS-CoV-2 mRNA (rrmigoh-ebby-qsazn) vax 10/21/21 Given influenza virus vaccine, inactivated [...] 01/21/22 8:34:00 EDT, Route to Pharmacy Electronically, [facility]/pharmacy #1130, Partial fill upon patient request if the prescription i... Start Date: 01/21/22 Status: Ordered diclofenac 1% topical gel See Instructions, APPLY TOPICALLY 4 TIMES DAILY NEEDED FOR PAIN NOT TO EXCEED 32 GRAMS DAILY., #100 Gm, 12 Refills, [facility] STORE 84768, 25, APPLY TOPICALLY 4 TIMES DAILY NEEDED FOR PAIN NOT TO EXCEED 32 GRAMS DAILY., 175, cm, 01/21/22 7:55:00 EDT,... Start Date: 04/16/22 Status: Ordered Diflucan 150 mg oral tablet 1 tablet = 150 mg, By Mouth, Once, # 1 tablet, 0 Refills, Soft Stop, 12/06/21 12:35:00 EDT, [facility]/pharmacy #1130, Partial fill upon patient request if the prescription is for a schedule II opioid drug., 175, cm, 11/26/21 9:31:00 EDT, Height, 82.6, kg, 0... Start Date: 12/06/21 Status: Ordered FLUoxetine 20 mg oral capsule 20 mg, 1, capsule, By Mouth, Daily, SYRIAC INSTRUCTIONS Please take every morning every day [...] surgery Confirmed Active Primary language spoken is Japanese Confirmed Active Lobular carcinoma in situ (LCIS) [...] Name: Aly PALACIOS, Dylan Vasquez Address: Address: [address] [place] [address]
--- OUTSIDE RECORDS SUMMARY | 2024-05-30 08:59 | XMS_ITS | Continuity of Care Document ---
Author Organization [facility] Address [address] [place] [address]- Care Team Providers Care Admin Dir Name Role Phone Aly PALACIOS, Dylan Vasquez Primary Care Physician ( [phone] [place] [facility] [place] 10/24/22 - 01/09/23 [facility] [address] [place] [address]- Attending Physician: Yovani Gonzalez MD Admitting Physician: Yovani Gonzalez MD Allergies, Adverse Reactions, Alerts Substance Reaction Severity Status Percocet GI upset, made me feel sick Active Immunizations Given and Recorded Vaccine Date Status Refusal Reason SARS-CoV-2 mRNA (lznnhev-dgkz-unhzh) vax 10/21/21 Given influenza virus vaccine, inactivated [...] 01/21/22 8:34:00 EDT, Route to Pharmacy Electronically, [facility]/pharmacy #1130, Partial fill upon patient request if the prescription i... Start Date: 01/21/22 Status: Ordered baclofen 10 mg oral tablet 10 mg, 1, tablet, By Mouth, Daily at bedtime, for left shoulder pain, # 14 tablet, Refills 0, Tot. Refills 0, Maintenance, 01/07/23 12:06:00 EDT, Route to [facility], [facility] fill upon patient request if the prescripti... Start Date: 01/07/23 Stop Date: 01/21/23 Status: Ordered diclofenac 1% topical gel See Instructions, APPLY TOPICALLY 4 TIMES DAILY NEEDED FOR PAIN NOT TO EXCEED 32 GRAMS DAILY., #100 Gm, 12 Refills, [facility] STORE 68397, 25, APPLY TOPICALLY 4 TIMES DAILY NEEDED FOR PAIN NOT TO EXCEED 32 GRAMS DAILY., 175, cm, 01/21/22 7:55:00 EDT,... Start Date: 04/16/22 Status: Ordered Diflucan 150 mg oral tablet 1 tablet = 150 mg, By Mouth, Once, # 1 tablet, 0 Refills, Soft Stop, 12/06/21 12:35:00 EDT, [facility]/pharmacy #1130, Partial fill upon patient request if the prescription is for a schedule II opioid drug., 175, cm, 11/26/21 9:31:00 EDT, Height, 82.6, kg, 0... Start Date: 12/06/21 Status: Ordered FLUoxetine 20 mg oral tablet 1.5 tablet = 30 mg, By Mouth, Daily, Zambian label please., # 45 tablet, 5 Refills, [...] 11/01/21 11:52:00 EST, Route to Pharmacy Electronically, [facility]/pharmacy #1130, Partial fill upon patient request if the prescription is for a schedule II... Start Date: 11/01/21 Stop Date: 12/31/21 Status: Ordered hydrOXYzine hydrochloride 25 mg oral tablet 1 tablet = 25 mg, By Mouth, Daily at bedtime, Zambian label please., # 30 tablet, 3 Refills, Maintenance, 09/24/22 8:26:00 EST, [facility]/pharmacy #1130, Partial fill upon patient request if the prescription is for a schedule II opioid drug., 175.3, cm, ... Start Date: 09/24/22 Status: Ordered meloxicam 15 mg oral tablet 1 tablet, By Mouth, Daily, TAKE WITH FOOD., # 30 tablet, 1 Refills, Maintenance, 12/21/22 19:53:00 EDT, [facility]/pharmacy #1130, 175.3, cm, 11/20/22 9:27:00 EST, Height, 82.6, kg, 11/14/21 10:17:00 EST, Dry Weight Start Date: 12/21/22 Status: Ordered psyllium 2.4 g/3.7 g oral powder for reconstitution = 2.4 Gm, By Mouth, 2 times a day, PRN as needed for constipation, dissolve in 8 oz of fluid, # 30 pack/packet, 1 Refills, Maintenance, 06/12/22 20:32:00 EDT, REC Powder, [facility]/pharmacy #1130, Partial fill upon patient request if the prescription is for... Start Date: 06/12/22 Status: Ordered tiZANidine 2 mg oral capsule 1 capsule = 2 mg, By Mouth, 3 times a day, PRN as needed for muscle spasm, # 40 capsule, 1 Refills,Maintenance, 04/30/22 10:45:00 EDT, Capsule, [facility]/pharmacy #1130, Partial fill upon patient request if the prescription is for a schedule II opioid drug... Start Date: 04/30/22 Stop Date: 05/28/22 Status: Ordered tiZANidine 2 mg oral tablet 2 mg, 1, tablet, By Mouth, 3 times a day, # 15 tablet, Refills 0, Tot. Refills 0, Maintenance, 07/25/22 14:47:00 EST, Route to Pharmacy Electronically, [facility]/pharmacy #1130, Partial fill upon patient request if the prescription is for a schedule II opio... Start Date: 07/25/22 Stop Date: 07/30/22 Status: Ordered traZODone 50 mg oral tablet 50 mg, 1, tablet, By Mouth, Daily at bedtime, for sleep Zambian label please, # 30 tablet, Refills 5, Tot. Refills 5, Maintenance, 11/13/22 16:13:00 EST, Route to Pharmacy Electronically, [facility]/pharmacy #1130, Partial fill upon patient [...] surgery Confirmed Active Primary language spoken is Zambian Confirmed Active Lobular carcinoma in situ (LCIS) [...] Team Personnel Name: Dylan Lu MD Position: [facility] Resident Member Role: PCP Address: Address: [address] [place] [id number]- Name: Homer Simon RN Position: [facility] SN RN Member Role: Primary Care Nurse Care Team Related Persons Name: PHOEBE SORTO Address: home [address] [place] [address] Name: YAMILKA WELLER Address: [place] [address] Name: KITA ZAMBRANO Address: home [address] [place] [address]
--- OUTSIDE RECORDS SUMMARY | 2024-05-30 08:59 | XMS_ITS | Continuity of Care Document ---
Author Organization [facility] Address [address] [place] [address]- Care Team Providers Care Rn Triage Name Role Phone Dylan Lu MD S Primary Care Physician [facility] Date[facility]s): 08/23/21 - 09/22/21 [facility] [address] [place], [place] [address] Allergies, Adverse Reactions, [...] er surgery(Confirmed) Active Primary language spoken is Zambian(Confirmed) Active Lobular carcinoma in situ (L CIS) , left breast, 2004(Confirmed) 2004 Active Migraine(Confirmed) 1987 Active Overweight(Confirmed) Active History of ASCUS, HPV + Pap smear 12/23/16. Last Pap 11/25/17 negative with negative HPV(Confirmed) Active Social History Social History Type Response Smoking Status Never smoker entered on: 01/11/14 Sex
--- OUTSIDE RECORDS SUMMARY | 2024-05-30 08:59 | XMS_ITS | Continuity of Care Document ---
Author Organization [facility] Address [address] [place] [address]- Care Team Providers Care Photo Editor Name Role Phone Flako Benavides MD Primary Care Physician [phone] Encounter [facility] Date(s): 10/06/23 - 11/05/23 [facility] [address] [place] [id number] Allergies, Adverse Reactions, Alerts Substance Reaction Severity Status Percocet GI upset, made me feel sick Active Immunizations Given and Recorded Vaccine Date Status Refusal Reason SARS-CoV-2 mRNA ([id number]) vax 10/21/21 Given influenza virus vaccine, inactivated [...] Gm, 12 Refills, Maintenance, 04/22/23 11:02:00 EDT, [facility] STORE [id number], 25, APPLY TOPICALLY 4 TIMES DAILY NEEDED FOR PAIN NOT TO EXCEED 32 GRAMS DA... Start Date: 04/22/23 Status: Ordered eszopiclone 1 mg oral tablet 1 tablet = 1 mg, By Mouth, Daily, TAKE IMMEDIATELY BEFORE BED. Yemeni label please, # 30 tablet, 0Refills, Maintenance, 11/05/23 15:48:00 EST, [facility]/pharmacy #1130, D/C DOXEPIN PLEASE, 175.3, cm, 10/01/23 17:00:00 EST, Height, 82.6, kg, 11/14/21 10:17... Start Date: 11/05/23 Status: Ordered FLUoxetine 40 mg oral capsule 1 capsule = 40 mg, By Mouth, Daily, Yemeni label please, # 30 capsule, 5 Refills, Maintenance, 11/03/23 10:11:00 EST, [facility]/pharmacy #1130, dose increase to 40mg 11/03/23, 175.3, cm, 10/01/23 17:00:00 EST, Height, 82.6, kg, 11/14/21 10:17:00 EST, Dry We... Start Date: 11/03/23 Status: Ordered meloxicam 15 mg oral tablet 1 tablet, By Mouth, Daily, INSTR:TAKE WITH FOOD. Yemeni label please., # 30 tablet, 1 Refills, Maintenance, 08/26/23 9:15:00 EST, [facility]/pharmacy #1130, 175.3, cm, 08/18/23 9:52:00 [...] Refills, Maintenance, 06/12/22 20:32:00 EDT, REC Powder, [facility]/pharmacy #1130, Partial fill upon patient request if the prescription is for... Start Date: 06/12/22 Status: Ordered tamoxifen 20 mg oral tablet See Instructions, [facility], # 90 tablet, 0 Refills, Maintenance, 11/02/23 17:13:00 EST, [id number], 175.3, cm, 10/01/23 17:00:00 EST, Height, 82.6, kg, 11/14/21 10:17:00 EST, Dry Weight Start Date: 11/02/23 Status: Ordered Tylenol 8 Hour 650 mg [...] surgery Confirmed Active Primary language spoken is Yemeni Confirmed Active Lobular carcinoma in situ (LCIS) [...] Team Personnel Name: Flako Benavides MD Position: [facility] Resident Member Role: PCP Address: Address: [address] [place] [id number]- Name: Homer Simon RN Position: [facility] RN Member Role: Primary Care Nurse Care Team Related Persons Name: PHOEBE SORTO Address: home [address] [place] [address] Name: YAMILKA WELLER Address: [place] [address] Name: KITA ZAMBRANO Address: home [address] [place] [id number]
--- OUTSIDE RECORDS SUMMARY | 2024-05-30 08:59 | XMS_ITS | Continuity of Care Document ---
Author Organization [facility] Address [address] [place] [address]- Care Team Providers Care Datastage Developer Name Role Phone Flako Benavdies MD Primary Care Physician [facility] Date[facility]s): 03/23/24 - 04/22/24 [facility] [address] [place], [place] [phone] Allergies, Adverse Reactions, Alerts Substance Reaction Severity Status Percocet GI upset, made me feel sick Active Immunizations Given and Recorded Vaccine Date Status Refusal Reason SARS-CoV-2 mRNA ([id number]) vax 10/21/21 Given influenza virus vaccine, inactivated [...] tablet, 5 Refills, Maintenance, 12/17/23 8:47:00 EDT, [facility]/pharmacy #1130, Partial fill upon patient request if the prescription is for a schedule II opioid drug., 175.3, cm, 12/17/23 8:18:0... Start Date: 12/17/23 Status: Ordered diclofenac 1% topical gel See Instructions, APPLY TOPICALLY 4 TIMES DAILY NEEDED FOR PAIN NOT TO EXCEED 32 GRAMS DAILY., #100 Gm, 1 Refills, Maintenance, 03/23/24 11:28:00 EDT, [facility]/pharmacy #1130, 25, APPLY TOPICALLY 4 TIMES DAILY NEEDED FOR PAIN NOT TO EXCEED 32 GRAMS... Start Date: 03/23/24 Status: Ordered eszopiclone 1 mg oral tablet 1 tablet = 1 mg, By Mouth, Daily, TAKE IMMEDIATELY BEFORE BED. Vincentian label please, # 30 tablet, 0Refills, Maintenance, 11/05/23 15:48:00 EST, [facility]/pharmacy #1130, D/C DOXEPIN PLEASE, 175.3, cm, 10/01/23 17:00:00 EST, Height, 82.6, kg, 11/14/21 10:17... Start Date: 11/05/23 Status: Ordered FLUoxetine 40 mg oral capsule 1 capsule = 40 mg, By Mouth, Daily, Vincentian label please, # 30 capsule, 5 Refills, Maintenance, 11/03/23 10:11:00 EST, [facility]/pharmacy #1130, dose increase to 40mg 11/03/23, 175.3, cm, 10/01/23 17:00:00 EST, Height, 82.6, kg, 11/14/21 10:17:00 EST, Dry We... Start Date: 11/03/23 Status: Ordered meloxicam 15 mg oral tablet 1 tablet, By Mouth, Daily, INSTR:TAKE WITH FOOD. Vincentian label please., # 30 tablet, 1 Refills, Maintenance, 08/26/23 9:15:00 EST, [facility]/pharmacy #1130, 175.3, cm, 08/18/23 9:52:00 EST, Height, [...] Refills, Maintenance, 06/12/22 20:32:00 EDT, REC Powder, [facility]/pharmacy #1130, Partial fill upon patient request if [...] S Resident Member Role: PCP Address: Address: [address] [place] [address]- Name: Alfred RN, Homer Position: S SN RN Member Role: Primary Care Nurse Care Team Related Persons Name: PHOEBE SORTO Address: home [address] [place] [address] Name: YAMILKA WELLER Address: [place] [address] Name: KITA ZAMBRANO Address: home [address] [place] [address]
--- OUTSIDE RECORDS SUMMARY | 2024-05-30 08:59 | XMS_ITS | Continuity of Care Document ---
Author Organization [facility] Address [address] [place] [address]- Care Team Providers Care Insurance Clerk Name Role Phone Aly PALACIOS, Dylan Vasquez Primary Care Physician Encounter [facility] Date(s): 09/26/22 - 11/28/22 [facility] [address] [place] [address]- Attending Physician: Yovani Gonzalez MD Admitting Physician: Yovani Gonzalez MD Allergies, Adverse Reactions, Alerts Substance Reaction Severity Status Percocet GI upset, made me feel sick Active Immunizations Given and Recorded Vaccine Date Status Refusal Reason SARS-CoV-2 mRNA ([id number]) vax 10/21/21 Given influenza virus vaccine, inactivated [...] 01/21/22 8:34:00 EDT, Route to Pharmacy Electronically, [facility]/pharmacy #1130, Partial fill upon patient request if the prescription i... Start Date: 01/21/22 Status: Ordered diclofenac 1% topical gel See Instructions, APPLY TOPICALLY 4 TIMES DAILY NEEDED FOR PAIN NOT TO EXCEED 32 GRAMS DAILY., #100 Gm, 12 Refills, [facility] STORE [id number], 25, APPLY TOPICALLY 4 TIMES DAILY NEEDED FOR PAIN NOT TO EXCEED 32 GRAMS DAILY., 175, cm, 01/21/22 7:55:00 EDT,... Start Date: 04/16/22 Status: Ordered Diflucan 150 mg oral tablet 1 tablet = 150 mg, By Mouth, Once, # 1 tablet, 0 Refills, Soft Stop, 12/06/21 12:35:00 EDT, [facility]/pharmacy #1130, Partial fill upon patient request if the prescription is for a schedule II opioid drug., 175, cm, 11/26/21 9:31:00 EDT, Height, 82.6, kg, 0... Start Date: 12/06/21 Status: Ordered FLUoxetine 20 mg oral tablet 1.5 tablet = 30 mg, By Mouth, Daily, Palauan label please., # 45 tablet, 5 Refills, Maintenance, 09/24/22 8:25:00 EST, [facility]/pharmacy #1130, Dose increase to 30mg qd 09/24/22, 175.3, cm, 08/06/22 10:40:00 EST, Height, 82.6, kg, 11/14/21 10:17:00 EST, Dry... Start Date: 09/24/22 Status: Ordered gabapentin 100 mg oral capsule 100 mg, 1, capsule, By Mouth, 3 times a day, # 90 capsule, Refills 1, Tot. Refills 1, Maintenance, 11/01/21 11:52:00 EST, Route to Pharmacy Electronically, [facility]/pharmacy #1130, Partial fill upon patient request if the prescription is for a schedule II... Start Date: 11/01/21 Stop Date: 12/31/21 Status: Ordered hydrOXYzine hydrochloride 25 mg oral tablet 1 tablet = 25 mg, By Mouth, Daily at bedtime, Palauan label please., # 30 tablet, 3 Refills, Maintenance, 09/24/22 8:26:00 EST, [facility]/pharmacy #1130, Partial fill upon patient request if the prescription is for a schedule II opioid drug., 175.3, cm, 11... Start Date: 09/24/22 Status: Ordered meloxicam 15 mg oral tablet 1 tablet = 15 mg, By Mouth, Daily, for pain take with food Palauan label please., # 30 tablet, 1 Refills, [...] 07/25/22 14:47:00 EST, Route to Pharmacy Electronically, [facility]/pharmacy #1130, Partial fill upon patient request if the prescription is for a schedule II opio... Start Date: 07/25/22 Stop Date: 07/30/22 Status: Ordered traZODone 50 mg oral tablet 50 mg, 1, tablet, By Mouth, Daily at bedtime, for sleep Palauan label please, # 30 tablet, Refills 5, Tot. Refills 5, Maintenance, 11/13/22 16:13:00 EST, Route to Pharmacy Electronically, [facility]/pharmacy #1130, Partial fill upon patient [...] Personnel Name: Aly PALACIOS, Dylan Vasquez Position: [facility] Resident Member Role: PCP Address: Address: [address] [place] [address]- Name: Homer Simon RN Position: [facility] SN RN Member Role: Primary Care Nurse Care Team Related Persons Name: PHOEBE SORTO Address: home [address] [place] [address] Name: YAMILKA WELLER Address: [place] [address] Name: KITA ZAMBRANO Address: home [address] [place] [address]
--- OUTSIDE RECORDS SUMMARY | 2024-05-30 08:59 | XMS_ITS | Continuity of Care Document ---
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 Start Date: 01/21/22 Status: Ordered diclofenac 1% topical gel See Instructions, APPLY TOPICALLY 4 TIMES DAILY NEEDED FOR PAIN NOT TO EXCEED 32 GRAMS DAILY., #100 Gm, 12 Refills, [facility], 25, APPLY TOPICALLY 4 TIMES DAILY NEEDED FOR PAIN NOT TO EXCEED 32 GRAMS DAILY., 175, cm, 01/21/22 7:55:00 EDT,... Start Date: 04/16/22 Status: Ordered Diflucan 150 mg oral tablet 1 tablet = 150 mg, By Mouth, Once, # 1 tablet, 0 Refills, Soft Stop, 12/06/21 12:35:00 EDT, [facility]/pharmacy #1130, Partial fill upon patient [...] Replace Required Details, Route to Pharmacy Electronically, [facility] STORE [id number], 175.... Start Date: 07/23/22 Status: Ordered FLUoxetine 20 mg oral tablet 1.5 tablet = 30 mg, By Mouth, Daily, Nauruan label please., # 45 tablet, 5 Refills, Maintenance, 09/24/22 8:25:00 EST, [facility]/pharmacy #1130, Dose increase to 30mg qd 09/24/22, 175.3, cm, 08/06/22 10:40:00 EST, Height, 82.6, kg, 11/14/21 10:17:00 EST, Dry... Start Date: 09/24/22 Status: Ordered gabapentin 100 mg oral capsule 100 mg, 1, capsule, By Mouth, 3 times a day, # 90 capsule, Refills 1, Tot. Refills 1, Maintenance, 11/01/21 11:52:00 EST, Route to Pharmacy Electronically, [facility]/pharmacy #1130, Partial fill upon patient request if the prescription is for a schedule II... Start Date: 11/01/21 Stop Date: 12/31/21 Status: Ordered hydrOXYzine hydrochloride 25 mg oral tablet 1 tablet = 25 mg, By Mouth, Daily at bedtime, Nauruan label please., # 30 tablet, 3 Refills, Maintenance, 09/24/22 8:26:00 EST, [facility]/pharmacy #1130, Partial fill upon patient request if the prescription is for a schedule II opioid drug., 175.3, cm, 11... Start Date: 09/24/22 Status: Ordered psyllium 2.4 g/3.7 g oral powder for reconstitution = 2.4 Gm, By Mouth, 2 times a day, PRN as needed for constipation, dissolve in 8 oz of fluid, # 30 pack/packet, 1 Refills, Maintenance, 06/12/22 20:32:00 EDT, REC Powder, [facility]/pharmacy #1130, Partial fill upon patient [...] 14:47:00 EST, Route to Pharmacy Electronically, [facility]/pharmacy #1130, Partial fill upon patient [...] a schedule II opioid drug. Start Date: 2/18/22 Status: Ordered Problem List Condition Confirmation Course Effective Dates Status H ealth Status Informant History of subconjunctival hemorrhage Confirmed Active History of keloid of skin afer surgery Confirmed Active Primary language spoken is Nauruan Confirmed Active Lobular carcinoma in situ (LCIS) [...] Team Personnel Name: Dylan Lu MD Position: [facility] Resident Member Role: PCP Address: Address: [address] [place] [address]- Name: Homer Simon RN Position: [facility] SN RN Member Role: Primary Care Nurse Care Team Related Persons Name: PHOEBE SORTO Address: home [address] [place] [address] Name: YAMILKA WELLER Address: [place] [address] Name: KITA ZAMBRANO Address: home [address] [place] [address]
[2024-05-30 09:43] VITALS: BP 142/87; PULSE 69; RESP 20; TEMP 36.1; O2SAT 100
== END 2024-05-30 09:44 | disposition home or self-care (01) ==
PROVIDERS: Emergency Provider Emergency Medicine; PCP Internal Medicine
DX: S40.851A Superficial foreign body of right upper arm, initial encounter (principal); M79.601 Pain in right arm; X58.XXXA Exposure to other specified factors, initial encounter; Y93.89 Activity, other specified; Y92.89 Other specified places as the place of occurrence of the external cause; Y99.8 Other external cause status
CPT/HCPCS: 73060; 99282; 99283

== ENCOUNTER 2024-06-06 08:00 | Outpatient (AMB) | payer OTHER, SELFPAY ==
--- NOTE | 2024-06-06 08:35 | MHC.OFFVIS ---
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 Patient reports 4-5 weeks ago she noticed pain in the upper right arm. She says she feels pain all over the right arm. Occasionally she will feel like something is stabbing her and other days she feels like something is pulling her bicep muscle. She is unable to sleep at night due to pain. She expresses she has tingling and numbness in the right arm that also radiating into all her digits of her right hand. 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 Tylenol does offer her relief. She does not take ibuprofen since it gives her an upset stomach. 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 The patient reports that this has been ongoing for approximately 4-5 weeks. The patient was evaluated in the ED on 05/30/24, where X rays were taken revealing a foreign body in the proximal RUE, in the shape of a needle. Today, the patient reports that she is still experiencing significant discomfort of the lateral aspect of the right upper extremity, primarily at the elbow and moving into the forearm. The patient also reports that she has been experiencing numbness and tingling in the right arm that radiates into the hand that is intermittent, but daily, and worse at night. The patient also reports that she has been experiencing significant weakness of the right hand. Patient states she is unable to identify exactly which digits in her right hand go numb, only stating that ?I feel like my whole hand goes numb? No other acute complaints or concerns at this time. 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 Good APB muscle firing and good finger cross. Vascular: Capillary refill brisk. Pain: Patient reports significant tenderness to palpation about the lateral epicondyle of the right elbow Patient denies any significant tenderness to palpation about the area of the foreign body present on x-ray but states that she can ?feel something? when this area is palpated ROM: Patient can make a fist and extend all their digits. Patient is able to flex and extend the right elbow fully without difficulty Skin: No lacerations or abrasions noted. General: No ecchymosis. No erythema or evidence of infection. Positive Cozen's test on the right Results Reviewed Results Reviewed: X-rays obtained in the office today and independently reviewed by me, Flako Hernandez PA-C, demonstrate radiopaque foreign body present in the lateral aspect of the proximal right upper extremity. No fracture or acute bony abnormality noted. Assessment & Plan Assessment & Plan (1) Lateral epicondylitis of right elbow: Code(s): M77.11 - Lateral epicondylitis, right elbow Category: Medical (2) Foreign body of upper arm: Code(s): S40.859A - Superficial foreign body of unspecified upper arm, initial encounter Category: Medical Qualifiers: Encounter type: initial encounter Laterality: right Qualified Code(s): S40.851A - Superficial foreign body of right upper arm, initial encounter (3) Numbness and tingling of right upper extremity: Code(s): R20.0 - Anesthesia of skin; R20.2 - Paresthesia of skin Category: Medical Plan 1. Numbness and tingling of right upper extremity Symptoms intermittent, but daily, worse at night Patient is referred for nerve conduction study to assess the health of the nerves of the right upper extremity Patient is amenable to this plan Patient will follow-up after nerve conduction study for results review and discussion of any further treatment options indicated at that time, sooner if any acute concerns 2. Lateral epicondylitis of right elbow Patient is educated about this condition, and the typical recovery course At this time, patient is referred to physical therapy for treatment of lateral epicondylitis Patient is informed that if in approximately 6-8 weeks after starting PT, she does not notice any improvement, she can call our office to make a repeat appointment for discussion of other treatment options, namely injections Patient is amenable to this plan 3. Foreign body of proximal right upper extremity Patient does not appear to be exhibiting any acute symptoms directly related to the foreign body of the right upper extremity, however, the patient reports that she would like to explore having this foreign body removed Patient is referred to Dr. Barnett for discussion of potential removal of foreign body, and if it would be a worthwhile endeavor Patient is amenable to this plan Patient will follow-up after nerve conduction study with Dr. Barnett for discussion of further treatment options for both numbness and tingling and right upper extremity foreign body, sooner with any acute concerns Orders: Orders XR humerus RT Today S42.301A - Unspecified fracture of shaft of humerus, right arm, initial encounter for closed fracture NE nerve conduction velocity Today R20.0 - Anesthesia of skin, R20.2 - Paresthesia of skin OT Evaluation and Treatment Today M77.11 - Lateral epicondylitis, right elbow NE electromyogram (EMG) Today R20.0 - Anesthesia of skin, R20.2 - Paresthesia of skin Coding Level of Care Code New Pt Level 3 ([address]108) Diagnoses Lateral epicondylitis of right elbow M77.11 Foreign body of upper arm S40.851A Encounter type: initial encounter Laterality: right Numbness and tingling of right upper extremity R20.0; R20.2
[2024-06-06 08:39] VITALS: BMI 26.0
== END 2024-06-06 09:15 | disposition home or self-care (01) ==
PROVIDERS: PCP Internal Medicine
DX: M77.11 Lateral epicondylitis, right elbow (principal); S40.851A Superficial foreign body of right upper arm, initial encounter; R20.0 Anesthesia of skin; R20.2 Paresthesia of skin
CPT/HCPCS: 99203

== ENCOUNTER 2024-06-06 08:05 | Outpatient (REF) | payer OTHER, SELFPAY ==
--- NOTE | ~2024-06-06 | XR_ITS ---
EXAMINATION: XR HUMERUS, RIGHT CLINICAL INFORMATION: S42.301A - Unspecified fracture of shaft of humerus, right arm, initial ... COMPARISON: 05/30/2024. TECHNIQUE: AP and lateral views of the right humerus. FINDINGS: No fracture, dislocation, or suspicious bone lesion. Redemonstration of a linear 1 cm long metallic foreign body in the lateral soft tissues of the distal upper arm. There is been no change in this finding. Imaged aspects of the right shoulder and elbow appear normal. No additional soft tissue abnormality. XR/XR humerus RT IMPRESSION: 1. No acute bony or soft tissue abnormalities. 2. Stable 1 cm linear metallic foreign body (probable needle) in the lateral soft tissues of the distal upper arm. Electronically signed by: Dread Ervin MD 08/15/2024 08:51 AM ROSARIO
== END 2024-06-06 08:06 | disposition home or self-care (01) ==
LOC: HO.HOSX 08:05
DX: S42.301A Unspecified fracture of shaft of humerus, right arm, initial encounter for closed fracture (principal); M77.11 Lateral epicondylitis, right elbow; S40.851A Superficial foreign body of right upper arm, initial encounter; R20.0 Anesthesia of skin; R20.2 Paresthesia of skin
CPT/HCPCS: 73060; 99202

== ENCOUNTER → 2024-06-06 08:08 | Outpatient (BNV) | payer OTHER, SELFPAY | PROVIDERS: Visit Provider Radiology Diagnostic Radiology | DX: S40.851A Superficial foreign body of right upper arm, initial encounter (principal) | CPT/HCPCS: 73060 ==